=== PATIENT | male | born 1940 | race Caucasian/White ===

== ENCOUNTER → 2018-08-26 | Outpatient (CLI) | payer MEDICARE, BC ==
--- NOTE | 2018-08-27 08:54 | Diagnostic Imaging Report ---
PROCEDURE: CT head without contrast. TECHNIQUE: Multiple contiguous axial images were obtained through the brain without the use of intravenous contrast. Auto Exposure Controls were utilized during the CT exam to meet ALARA standards for radiation dose reduction. INDICATION: Severe dizziness No previous for comparison. FINDINGS: There is a moderate severity of generalized cerebral cortical atrophy. The ventricular caliber is congruent with the degree of sulcation. There is focal encephalomalacia medial, and inferior right occipital lobe consistent with an old ischemic insult and there may be an old small cortical infarct in the left medial occipital lobe as well. No sulcal effacement. No findings of focal or generalized cerebral edema. There is no evidence for elevation of the intracranial pressures. There are intracranial atherosclerotic vascular calcifications. There are no abnormal extra-axial fluid collections. There is no mass or mass effect. Mastoid air cells and middle ear cavities appeared unremarkable. The orbits unremarkable. There is opacification of the left sphenoid sinus. 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 However, no hemorrhage, edema or acute-appearing intracerebral pathology. Dictated by: Dictated on workstation # [id number]
== END ==
LOC: RAD FS 09:55
PROVIDERS: ATTEND Family Medicine
DX: I67.2 Cerebral atherosclerosis (principal); R90.82 White matter disease, unspecified; R54 Age-related physical debility
CPT/HCPCS: 70450

== ENCOUNTER → 2019-03-02 | Outpatient (CLI) | payer MEDICARE, BC ==
--- NOTE | 2019-03-02 11:15 | Diagnostic Imaging Report ---
EXAMINATION: PA and lateral chest at 10:41 a.m. INDICATION: Chest pain. COMPARISON: There are no prior studies available for comparison. FINDINGS: The heart size is within normal limits. There are few coarse interstitial infiltrates in the left midlung and left lung base. These findings could be chronic in nature. If previous exams are available, they would be helpful for comparison. The possibility that these finding are related to mild acute pneumonia/atelectasis cannot be entirely excluded. Clinical follow-up is recommended. The left upper lung and right lung are generally clear. There is no sign of a pleural effusion. The mediastinum is not widened. The osseous structures are intact. IMPRESSION: 1. The coarse interstitial densities in the left midlung and left lung base are of uncertain etiology. Whether these are chronic in nature or related to mild acute pneumonia/atelectasis is unclear. If previous studies are available, they would be helpful for comparison. 2. There is no acute cardiopulmonary abnormality noted, otherwise. Dictated by: Dictated on workstation # [id number]
== END ==
LOC: RAD FS 10:36
PROVIDERS: ATTEND Nurse Practitioner Family
DX: J98.4 Other disorders of lung (principal); R07.89 Other chest pain
CPT/HCPCS: 71046

== ENCOUNTER 2021-03-02 12:35 | Observation (INO) | payer MEDICARE, BC ==
[~2021-03-02] VITALS: Ht 172.7 cm; Wt 78.5 kg
--- NOTE | 2021-03-02 12:42 | ED General ---
General Chief Complaint: Dizziness/Syncope Stated Complaint: DIZZINESS History of Present Illness Date Seen by Provider: Mar 02, 2021 Time Seen by Provider: 12:42 Initial Comments 81-year-old male presents with generalized weakness and what he describes as dizziness. Patient had an episode of dizziness yesterday none today complains of dizziness and just weakness and inability to stand that is new today. Patient has some generalized malaise but denies any cough fever chills nausea vomiting headache or any other systemic complaint. Patient has difficulty describing his dizziness outside of just being weak. Patient reports he is drinking okay he did eat breakfast this morning. He denies any exposure to any known Covid or influenza contacts. 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 Allergies and Home Medications Allergies Coded Allergies: Zxnbeqx-HVQ-WyJ Reductase Inhibitor (Verified Allergy, Unknown, 03/02/21) atorvastatin (Verified Allergy, Unknown, 03/02/21) clopidogrel (Verified Allergy, Unknown, 03/02/21) erythromycin base (Verified Allergy, Unknown, 03/02/21) meclizine (Verified Allergy, Unknown, 03/02/21) Patient Home Medication List Home Medication List Reviewed: Yes Review of Systems Review of Systems Constitutional: chills, dizziness, malaise EENTM: no symptoms reported Respiratory: No cough, No short of breath Cardiovascular: No chest pain, No palpitations Gastrointestinal: No abdominal pain, No nausea, No vomiting Genitourinary: no symptoms reported Musculoskeletal: no symptoms reported Skin: no symptoms reported Psychiatric/Neurological: Weakness Hematologic/Lymphatic: No Symptoms Reported Physical Exam Vital Signs Vital Signs - First Documented 03/02/21 12:40 Temp 38.0 Pulse 88 Resp 28 B/P (MAP) 163/71 (101) Pulse Ox 95 O2 Delivery Room Air Capillary Refill : Height, Weight, BMI Height: '" Weight: lbs. oz. kg; BMI Method: General Appearance: Other (Frail) Neck: Non Tender, Supple Respiratory: Lungs Clear, Normal Breath Sounds Cardiovascular: No Edema, Tachycardia Gastrointestinal: Non Tender, Soft Extremity: Normal Capillary Refill Neurologic/Psychiatric: Alert, Normal Mood/Affect Skin: Normal Color, Warm/Dry Focused Exam Lactate Level 03/02/21 12:57: Lactic Acid Level 1.61 Lactic Acid Level Laboratory Tests Test 03/02/21 12:57 Lactic Acid Level 1.61 MMOL/L (0.50-2.00) Progress/Results/Core Measures Suspected Sepsis SIRS Temperature: Pulse: Respiratory Rate: Laboratory Tests 03/02/21 12:57: White Blood Count 10.8 03/02/21 13:50: White Blood Count 11.5H Blood Pressure / Mean: 03/02/21 12:57: Lactic Acid Level 1.61 Laboratory Tests 03/02/21 12:57: Creatinine 1.18, Platelet Count 226, Total Bilirubin 0.8 03/02/21 13:50: Platelet Count 229 Results/Orders Lab Results Laboratory Tests Test 03/02/21 12:50 03/02/21 12:57 03/02/21 13:14 03/02/21 13:50 Range/Units Urine Color YELLOW Urine Clarity CLEAR Urine pH 8.0 5-9 Urine Specific Joanna 1.020 1.016-1.022 Urine Protein NEGATIVE NEGATIVE Urine Glucose (UA) NEGATIVE NEGATIVE Urine Ketones NEGATIVE NEGATIVE Urine Nitrite NEGATIVE NEGATIVE Urine Bilirubin NEGATIVE NEGATIVE Urine Urobilinogen 0.2 < = 1.0 MG/DL Urine Leukocyte Esterase NEGATIVE NEGATIVE Urine RBC (Auto) NEGATIVE NEGATIVE Urine RBC NONE /HPF Urine WBC RARE /HPF Urine Squamous Epithelial Cells RARE /HPF Urine Crystals NONE /LPF Urine Bacteria NEGATIVE /HPF Urine Casts NONE /LPF Urine Mucus NEGATIVE /LPF Urine Culture Indicated NO White Blood Count 10.8 11.5 H 4.3-11.0 10^3/uL Red Blood Count 4.22 L 4.08 L 4.30-5.52 10^6/uL Hemoglobin 13.9 13.4 13.3-17.7 g/dL Hematocrit 41 40 40-54 % Mean Corpuscular Volume 98 98 80-99 fL Mean Corpuscular Hemoglobin 33 33 25-34 pg Mean Corpuscular Hemoglobin Concent 34 34 32-36 g/dL Red Cell Distribution Width 12.5 12.6 10.0-14.5 % Platelet Count 226 229 130-400 10^3/uL Mean Platelet Volume 10.2 10.0 9.0-12.2 fL Immature Granulocyte % (Auto) 0 0 % Neutrophils (%) (Auto) 84 H 84 H 42-75 % Lymphocytes (%) (Auto) 8 L 8 L 12-44 % Monocytes (%) (Auto) 5 5 0-12 % Eosinophils (%) (Auto) 3 2 0-10 % Basophils (%) (Auto) 1 1 0-10 % Neutrophils # (Auto) 9.0 H 9.6 H 1.8-7.8 X 10^3 Lymphocytes # (Auto) 0.9 L 1.0 1.0-4.0 X 10^3 Monocytes # (Auto) 0.5 0.6 0.0-1.0 X 10^3 Eosinophils # (Auto) 0.3 0.3 0.0-0.3 10^3/uL Basophils # (Auto) 0.1 0.1 0.0-0.1 10^3/uL Immature Granulocyte # (Auto) 0.0 0.0 0.0-0.1 10^3/uL Neutrophils % (Manual) 84 % Lymphocytes % (Manual) 9 % Monocytes % (Manual) 3 % Eosinophils % (Manual) 4 % Toxic Granulation 4+ Sodium Level 137 135-145 MMOL/L Potassium Level 4.4 3.6-5.0 MMOL/L Chloride Level 100 98-107 MMOL/L Carbon Dioxide Level 24 21-32 MMOL/L Anion Gap 13 5-14 MMOL/L Blood Urea Nitrogen 17 7-18 MG/DL Creatinine 1.18 0.60-1.30 MG/DL Estimat Glomerular Filtration Rate 59 BUN/Creatinine Ratio 14 Glucose Level 169 H 70-105 MG/DL Lactic Acid Level 1.61 0.50-2.00 MMOL/L Calcium Level 10.0 8.5-10.1 MG/DL Corrected Calcium 9.7 8.5-10.1 MG/DL Magnesium Level 1.7 1.6-2.4 MG/DL Total Bilirubin 0.8 0.1-1.0 MG/DL Aspartate Amino Transf (AST/SGOT) 32 5-34 U/L Alanine Aminotransferase (ALT/SGPT) 19 0-55 U/L Alkaline Phosphatase 113 40-136 U/L C-Reactive Protein < 0.30 <0.50 MG/DL Total Protein 7.8 6.4-8.2 GM/DL Albumin 4.4 3.2-4.5 GM/DL Influenza Type A Antigen NEGATIVE NEGATIVE Influenza Type B Antigen NEGATIVE NEGATIVE My Orders Orders - CARRANZA,PITO L DO Cbc With Automated Diff (03/02/21 12:47) Comprehensive Metabolic Panel (03/02/21 12:47) Magnesium (03/02/21 12:47) Ua Culture If Indicated (03/02/21 12:47) Accucheck Stat ONCE (03/02/21 12:47) Crp Fs (03/02/21 12:47) Influenza A & B Antigens (03/02/21 12:47) Blood Culture (03/02/21 12:47) Covid 19 Inhouse Test (03/02/21 12:47) Lactic Acid Analyzer (03/02/21 12:47) Ct Head Wo (03/02/21 12:47) Ekg Tracing (03/02/21 12:47) Chest 1 View Ap/Pa Only (03/02/21 12:47) Ed Iv/Invasive Line Start (03/02/21 12:47) Ns Iv 500 Ml (Sodium Chloride 0.9%) (03/02/21 13:00) Procalcitonin (Pct) (03/02/21 12:57) Manual Differential (03/02/21 12:57) Cbc With Automated Diff (03/02/21 13:54) Levofloxacin Tablet (Levaquin Tablet) (03/02/21 14:15) Medications Given in ED Current Medications Medications Dose Ordered Sig/Candelario Route Start Time Stop Time Status Last Admin Dose Admin Levofloxacin 500 mg ONCE ONCE PO 03/02/21 14:15 03/02/21 14:16 DC 03/02/21 14:42 500 MG Sodium Chloride 500 ml @ 0 mls/hr Q0M ONCE IV 03/02/21 13:00 03/02/21 13:01 DC 03/02/21 13:21 0 MLS/HR Vital Signs/I&O 03/02/21 12:40 Temp 38.0 Pulse 88 Resp 28 B/P (MAP) 163/71 (101) Pulse Ox 95 O2 Delivery Room Air Capillary Refill : Progress Note : Progress Note Patient with slightly elevated white count, bilateral perihilar pneumonia on chest x-ray. Patient has some general weakness that is new from yesterday. Based on patient's age and his generalized weakness I will admit for inpatient treatment and physical therapy eval. Patient was given Levaquin p.o. in the ER. This time he does not have any O2 needs. Discussed with Dr. Centeno who accepted patient and will put in admission orders. ECG Initial ECG Impression Date: Mar 02, 2021 Initial ECG Impression Time: 21:50 Initial ECG Rate: 89 Initial ECG Rhythm: Normal Sinus Initial ECG Intervals: Normal Initial ECG Impression: Normal Diagnostic Imaging Diagonstic Imaging: CT Plain Films/CT/US/NM/MRI: head Comments Date of Exam:03/02/21 CT HEAD WO EXAMINATION: CT brain without contrast from 03/02/2021. TECHNIQUE: Multiple contiguous axial images were obtained through the brain without the use of intravenous contrast. Auto Exposure Controls were utilized during the CT exam to meet ALARA standards for radiation dose reduction. INDICATION: Dizziness and weakness. COMPARISON: 08/26/2018. FINDINGS: There is diffuse age-appropriate atrophy. Chronic ischemic disease is seen in a periventricular and deep white matter distribution. No acute hemorrhage or infarct is seen. There is no mass, mass effect, or midline shift. There is no hydrocephalus. The osseous structures are intact. Motion artifact does somewhat limit evaluation of the osseous structures. Mastoid air cells are clear. There is complete opacification of the left sphenoid sinus, stable from previous CT. Remaining sinuses are unremarkable. IMPRESSION: 1. Diffuse chronic changes with no acute intracranial process. Diagonstic Imaging: Xray Plain Films/CT/US/NM/MRI: chest Comments Date of Exam:03/02/21 CHEST 1 VIEW AP/PA ONLY INDICATION: Dizziness and weakness for a week. EXAMINATION: Chest from 03/02/2021. FINDINGS: Two views of the chest. The heart is prominent. There is pulmonary vascular congestion with perihilar infiltrates not excluded. There is no pneumothorax. There are no effusions. IMPRESSION: 1. Pulmonary vascular congestion. 2. Suspected perihilar infiltrates. Departure Communication (Admissions) Time/Spoke to Admitting Phy: 14:21 Okay to admit, Dr. Centeno will put in admission orders Impression Primary Impression: Pneumonia Qualified Codes: J18.9 - Pneumonia, unspecified organism Additional Impression: Muscle weakness (generalized) Disposition: 30 STILL A PATIENT Condition: Stable Admissions Decision to Admit Reason: Admit from ER (General) Decision to Admit/Date: Mar 02, 2021 Time/Decision to Admit Time: 14:21 Departure-Patient Inst. Referrals: BARRY MANSFIELD MD (PCP/Family) Primary Care Physician PITO CARRANZA DO Mar 02, 2021 12:42
[2021-03-02 12:59] LABS: BACTERIA,URINE NEGATIVE /HPF; BILIRUBIN,URINE NEGATIVE (NEGATIVE); CLARITY,URINE CLEAR; COLOR,URINE YELLOW; GLUCOSE, URINE (UA) NEGATIVE (NEGATIVE); KETONES,URINE NEGATIVE (NEGATIVE); LEUKOCYTE ESTERASE ,URINE NEGATIVE (NEGATIVE); NITRITE,URINE NEGATIVE (NEGATIVE); PROTEIN,URINE NEGATIVE (NEGATIVE); SQUAMOUS EPITHELIAL CELL,UR RARE /HPF; WBC,URINE RARE /HPF
[2021-03-02] MEDS ORDERED: NS IV 500 ML 500 ML IV ONE (13:00)
[2021-03-02 13:04] LABS: BASOPHILS # (AUTO) 0.1 10^3/uL (0.0-0.1); BASOPHILS % (AUTO) 1 % (0-10); EOSINOPHILS # (AUTO) 0.3 10^3/uL (0.0-0.3); EOSINOPHILS % (AUTO) 3 % (0-10); HEMATOCRIT 41 % (40-54); HEMOGLOBIN 13.9 g/dL (13.3-17.7); LYMPHOCYTES # (AUTO) 0.9 X 10^3 (1.0-4.0); LYMPHOCYTES % (AUTO) 8 % (12-44); MEAN CORPUSCULAR HEMOGLOBIN 33 pg (25-34); MEAN CORPUSCULAR HGB CONC 34 g/dL (32-36); MEAN CORPUSCULAR VOLUME 98 fL (80-99); MEAN PLATELET VOLUME 10.2 fL (9.0-12.2); MONOCYTES # (AUTO) 0.5 X 10^3 (0.0-1.0); MONOCYTES % (AUTO) 5 % (0-12); NEUTROPHILS % (AUTO) 84 % (42-75); PLATELET COUNT 226 10^3/uL (130-400)
[2021-03-02 13:21] LABS: EOSINOPHILS % (MANUAL) 4 %; LYMPHOCYTES % (MANUAL) 9 %; MONOCYTES % (MANUAL) 3 %; NEUTROPHILS % (MANUAL) 84 %; TOXIC GRANULATION/VACUOLAZATIO 4+
[2021-03-02 13:22] LABS: ALANINE AMINOTRANSFERASE 19 U/L (0-55); ALBUMIN 4.4 GM/DL (3.2-4.5); ALKALINE PHOSPHATASE 113 U/L (40-136); BILIRUBIN,TOTAL 0.8 MG/DL (0.1-1.0); BUN/CREATININE RATIO 14; CARBON DIOXIDE 24 MMOL/L (21-32); CHLORIDE 100 MMOL/L (98-107); CREATININE SERUM 1.18 MG/DL (0.60-1.30); GFR ESTIMATED 59; GLUCOSE 169 MG/DL (70-105); MAGNESIUM 1.7 MG/DL (1.6-2.4); POTASSIUM 4.4 MMOL/L (3.6-5.0); SODIUM 137 MMOL/L (135-145); TOTAL PROTEIN 7.8 GM/DL (6.4-8.2)
[2021-03-02 13:57] LABS: HEMATOCRIT 40 % (40-54); HEMOGLOBIN 13.4 g/dL (13.3-17.7); MEAN CORPUSCULAR HEMOGLOBIN 33 pg (25-34); MEAN CORPUSCULAR HGB CONC 34 g/dL (32-36); MEAN CORPUSCULAR VOLUME 98 fL (80-99); WHITE BLOOD COUNT 11.5 10^3/uL (4.3-11.0)
[2021-03-02 13:58] LABS: BASOPHILS # (AUTO) 0.1 10^3/uL (0.0-0.1); BASOPHILS % (AUTO) 1 % (0-10); EOSINOPHILS # (AUTO) 0.3 10^3/uL (0.0-0.3); EOSINOPHILS % (AUTO) 2 % (0-10); LYMPHOCYTES % (AUTO) 8 % (12-44); MONOCYTES # (AUTO) 0.6 X 10^3 (0.0-1.0); MONOCYTES % (AUTO) 5 % (0-12); NEUTROPHILS # (AUTO) 9.6 X 10^3 (1.8-7.8); NEUTROPHILS % (AUTO) 84 % (42-75); PLATELET COUNT 229 10^3/uL (130-400)
--- NOTE | 2021-03-02 13:58 | Diagnostic Imaging Report ---
EXAMINATION: CT brain without contrast from 03/02/2021. TECHNIQUE: Multiple contiguous axial images were obtained through the brain without the use of intravenous contrast. Auto Exposure Controls were utilized during the CT exam to meet ALARA standards for radiation dose reduction. INDICATION: Dizziness and weakness. COMPARISON: 08/26/2018. FINDINGS: There is diffuse age-appropriate atrophy. Chronic ischemic disease is seen in a periventricular and deep white matter distribution. No acute hemorrhage or infarct is seen. There is no mass, mass effect, or midline shift. There is no hydrocephalus. The osseous structures are intact. Motion artifact does somewhat limit evaluation of the osseous structures. Mastoid air cells are clear. There is complete opacification of the left sphenoid sinus, stable from previous CT. Remaining sinuses are unremarkable. IMPRESSION: 1. Diffuse chronic changes with no acute intracranial process. Dictated by: Dictated on workstation # [id number]
[2021-03-02 13:59] LABS: WHITE BLOOD COUNT 10.8 10^3/uL (4.3-11.0)
--- NOTE | 2021-03-02 13:59 | Diagnostic Imaging Report ---
INDICATION: Dizziness and weakness for a week. EXAMINATION: Chest from 03/02/2021. FINDINGS: Two views of the chest. The heart is prominent. There is pulmonary vascular congestion with perihilar infiltrates not excluded. There is no pneumothorax. There are no effusions. IMPRESSION: 1. Pulmonary vascular congestion. 2. Suspected perihilar infiltrates. Dictated by: Dictated on workstation # [id number]
[2021-03-02 15:35] VITALS: BP 149/79
[2021-03-02] MEDS ORDERED: PATIENT MAY USE OWN MEDS, ALL PO SCH (16:00)
[2021-03-02] MEDS ORDERED: NALOXONE 0.4 MG/ML 1 ML (NARCAN) VIAL IV PRN (16:00)
[2021-03-02] MEDS ORDERED: diphenhydrAMINE 25 MG TAB (BENADRYL) PO PRN (16:00)
[2021-03-02] MEDS ORDERED: morphine INJ 4 MG/ML 1 ML (VIAL/SYRINGE) IV PRN (16:00)
[2021-03-02] MEDS ORDERED: ACETAMINOPHEN 500 MG TAB (TYLENOL) PO PRN (16:00)
[2021-03-02 16:17] VITALS: BP 163/71
[2021-03-02 16:24] VITALS: BP 163/71
[2021-03-02] MEDS ORDERED: RT-ALBUTEROL/IPRATROPIUM 3 ML (DUONEB) VIAL INH PRN (16:30)
[2021-03-02] MEDS ORDERED: ALPRAZolam 0.25 MG (XANAX) TAB PO PRN (17:00)
[2021-03-02] MEDS ORDERED: HYDROcodone/APAP 5 MG/325 MG (LORTAB) TAB PO PRN (17:00)
[2021-03-02] MEDS ORDERED: CALCIUM CARBONATE 500 MG (TUMS) TAB.CHEW PO PRN (17:00)
[2021-03-02] MEDS ORDERED: MELATONIN 3 MG TABLET PO PRN (17:00)
[2021-03-02] MEDS ORDERED: DOCUSATE SODIUM 100 MG (COLACE) CAP PO PRN (17:00)
[2021-03-02] MEDS ORDERED: EZET10TA49 PO (17:00)
[2021-03-02] MEDS ORDERED: Prevagen PO (17:13)
[2021-03-02] MEDS ORDERED: GLUC100016 PO (17:13)
[2021-03-02] MEDS ORDERED: GEMF600T88 PO (17:13)
[2021-03-02] MEDS ORDERED: METF-397 PO (17:13)
[2021-03-02] MEDS ORDERED: TMSL.4C PO (17:13)
[2021-03-02] MEDS ORDERED: BETA1TAB15 PO (17:13)
[2021-03-02] MEDS: NS IV 1000 ML 1,000 ML IV SCH (17:25)
[2021-03-02] MEDS: ENOXAPARIN 40 MG/0.4 ML (LOVENOX) SYR SC SCH (17:25)
[2021-03-02] MEDS: TAMSULOSIN 0.4 MG (FLOMAX) CAP PO SCH (18:52)
[2021-03-02 19:45] VITALS: BP 131/69
[2021-03-02] MEDS: inSUlin ASPART (NovoLOG) 1 UNIT/0.01 ML (CHARGE PER UNIT) SC SCH (20:45)
[2021-03-02] MEDS: RT-ALBUTEROL/IPRATROPIUM 3 ML (DUONEB) VIAL INH SCH (21:12)
[2021-03-02] MEDS: SENNA W/DOCUSATE (SENOKOT S) TABLET PO SCH (21:47)
[2021-03-02 23:30] VITALS: BP 119/56
[2021-03-03] MEDS: RT-ALBUTEROL/IPRATROPIUM 3 ML (DUONEB) VIAL INH SCH ×4 (02:46→21:31)
[2021-03-03 04:00] VITALS: BP 120/62
[2021-03-03 05:46] LABS: BASOPHILS % (AUTO) 0 % (0-10); EOSINOPHILS # (AUTO) 0.1 10^3/uL (0.0-0.3); EOSINOPHILS % (AUTO) 2 % (0-10); HEMATOCRIT 36 % (40-54); LYMPHOCYTES # (AUTO) 1.1 10^3/uL (1.0-4.0); LYMPHOCYTES % (AUTO) 20 % (12-44); MEAN CORPUSCULAR HEMOGLOBIN 33 pg (25-34); MEAN CORPUSCULAR HGB CONC 34 g/dL (32-36); MEAN CORPUSCULAR VOLUME 98 fL (80-99); MEAN PLATELET VOLUME 10.2 fL (9.0-12.2); MONOCYTES # (AUTO) 0.5 10^3/uL (0.0-1.0); MONOCYTES % (AUTO) 9 % (0-12); NEUTROPHILS # (AUTO) 3.8 10^3/uL (1.8-7.8); NEUTROPHILS % (AUTO) 69 % (42-75); PLATELET COUNT 162 10^3/uL (130-400); WHITE BLOOD COUNT 5.5 10^3/uL (4.3-11.0)
[2021-03-03 06:09] LABS: ALBUMIN 3.5 GM/DL (3.2-4.5)
[2021-03-03 06:11] LABS: CALCIUM 8.9 MG/DL (8.5-10.1)
[2021-03-03 06:12] LABS: TOTAL PROTEIN 6.3 GM/DL (6.4-8.2)
[2021-03-03 06:14] LABS: BILIRUBIN,TOTAL 1.1 MG/DL (0.1-1.0)
[2021-03-03 06:15] LABS: CREATININE SERUM 1.14 MG/DL (0.60-1.30)
[2021-03-03 08:00] VITALS: BP 126/58
[2021-03-03] MEDS: NS IV 1000 ML 1,000 ML IV SCH (08:47)
[2021-03-03] MEDS: SENNA W/DOCUSATE (SENOKOT S) TABLET PO SCH ×2 (08:47→20:37)
[2021-03-03] MEDS: inSUlin ASPART (NovoLOG) 1 UNIT/0.01 ML (CHARGE PER UNIT) SC SCH ×2 (08:59→20:34)
[2021-03-03 12:00] VITALS: BP 126/58
--- NOTE | 2021-03-03 12:26 | History & Physical-Hospitalist ---
History of Present Illness HPI/Chief Complaint Chief complaint: Pneumonia with weakness History present illness: This is an 81-year-old white male who lives at home w ith his son who presented to the [place] ER with severe weakness. Patient was found to have pneumonia and dehydration. He was placed on Levaquin and that was continued and currently he is eating and drinking so we will Hep-Lock IV fluid. Son is at the bedside. PT and OT will be initiated to be sure he is safe to go home. Source: patient Exam Limitations: no limitations Date Seen 03/03/21 Time Seen by a Provider: 12:00 Attending Physician Linda Centeno Pankaj K MD Referring Physician Date of Admission Mar 02, 2021 at 15:38 Home Medications & Allergies Home Medications Reviewed patient Home Medication Reconciliation performed by pharmacy medication reconciliations desktop support technician and/or nursing. Patients Allergies have been reviewed. Allergies Allergies Coded Allergies Rmatbeh-VVB-GpK Reductase Inhibitor (Verified Allergy, Unknown, 03/02/21) atorvastatin (Verified Allergy, Unknown, 03/02/21) clopidogrel (Verified Allergy, Unknown, 03/02/21) erythromycin base (Verified Allergy, Unknown, 03/02/21) meclizine (Verified Allergy, Unknown, 03/02/21) Past Gxhiahl-Bbcass-Qhwugs Hx Patient Social History Marrital Status: single Employed/Student: retired Tobacco Use?: No Smoking Status: Former Smoker Use of E-Cig and/or Vaping dev: No Substance use?: No Alcohol Use?: No Pt feels they are or have been: No Immunizations Up To Date Date of Influenza Vaccine: Jan 18, 2021 First/Initial COVID19 Vaccinat: May 2020 Second COVID19 Vaccination Sabino: June 2020 Current Status Advance Directives: No Communicates: Verbally Primary Language: Surinamese Preferred Spoken Language: Surinamese Is interpretation needed?: No Sensory deficits: Vision impairment, Hearing impairment Implanted or Applied Medical D: None Past Medical History High Cholesterol, Hypertension Dementia Review of Systems Constitutional: see HPI, malaise, weakness EENTM: no symptoms reported Respiratory: cough Cardiovascular: no symptoms reported Gastrointestinal: no symptoms reported Genitourinary: no symptoms reported Musculoskeletal: no symptoms reported Skin: no symptoms reported Psychiatric/Neurological: No Symptoms Reported All Other Systems Reviewed Negative Unless Noted: Yes Physical Exam Physical Exam Vital Signs Vital Signs - First Documented 03/02/21 03/02/21 12:40 16:24 Temp 38.0 Pulse 88 Resp 28 B/P (MAP) 163/71 (101) Pulse Ox 95 O2 Delivery Room Air FiO2 21 Capillary Refill : Less Than 3 Seconds Height, Weight, BMI Height: '" Weight: lbs. oz. kg; 26.21 BMI Method: General Appearance: No Apparent Distress, Chronically ill Eyes: Right Eye Normal Inspection, Right Eye PERRL HEENT: PERRL/EOMI, Normal ENT Inspection, Pharynx Normal, Moist Mucous Membranes Neck: Full Range of Motion, Normal Inspection, Non Tender Respiratory: Chest Non Tender, Lungs Clear, Normal Breath Sounds, No Accessory Muscle Use, No Respiratory Distress Cardiovascular: Regular Rate, Rhythm, No Edema, No Gallop, No JVD, No Murmur, Normal Peripheral Pulses Gastrointestinal: Normal Bowel Sounds, No Organomegaly, No Pulsatile Mass, Non Tender, Soft Back: Normal Inspection, No CVA Tenderness, No Vertebral Tenderness Extremity: Normal Capillary Refill, Normal Inspection, Normal Range of Motion, Non Tender, No Calf Tenderness, No Pedal Edema Neurologic/Psychiatric: Alert, Oriented x3, No Motor/Sensory Deficits, Normal Mood/Affect Skin: Normal Color, Warm/Dry Lymphatic: No Adenopathy Results Results/Procedures Labs Laboratory Tests 03/02/21 12:57 03/02/21 13:50 03/03/21 05:19 Patient resulted labs reviewed. Assessment/Plan Admission Diagnosis Assessment: Pneumonia Dehydration Severe weakness Advanced age Plan: Supportive care PT and OT Hep-Lock IV fluid Admission Status: Observation Diagnosis/Problems Diagnosis/Problems (1) Pneumonia Status: Acute Qualifiers: Pneumonia type: due to unspecified organism Laterality: bilateral Lung location: unspecified part of lung Qualified Codes: J18.9 - Pneumonia, unspecified organism (2) Muscle weakness (generalized) Status: Acute LINDA CENTENO DO Mar 03, 2021 12:26
[2021-03-03 16:33] VITALS: BP 125/63
[2021-03-03] MEDS: TAMSULOSIN 0.4 MG (FLOMAX) CAP PO SCH (18:36)
[2021-03-03] MEDS: ENOXAPARIN 40 MG/0.4 ML (LOVENOX) SYR SC SCH (18:36)
[2021-03-03 20:00] VITALS: BP 136/63
[2021-03-04 00:36] VITALS: BP 131/70
[2021-03-04] MEDS: RT-ALBUTEROL/IPRATROPIUM 3 ML (DUONEB) VIAL INH SCH ×2 (03:04→09:53)
[2021-03-04 04:59] VITALS: BP 116/56
[2021-03-04 05:40] LABS: BASOPHILS % (AUTO) 1 % (0-10); EOSINOPHILS # (AUTO) 0.2 10^3/uL (0.0-0.3); EOSINOPHILS % (AUTO) 4 % (0-10); HEMATOCRIT 36 % (40-54); HEMOGLOBIN 12.2 g/dL (13.3-17.7); LYMPHOCYTES # (AUTO) 1.3 10^3/uL (1.0-4.0); LYMPHOCYTES % (AUTO) 29 % (12-44); MEAN CORPUSCULAR HEMOGLOBIN 33 pg (25-34); MEAN CORPUSCULAR HGB CONC 34 g/dL (32-36); MEAN CORPUSCULAR VOLUME 97 fL (80-99); MEAN PLATELET VOLUME 9.7 fL (9.0-12.2); MONOCYTES # (AUTO) 0.8 10^3/uL (0.0-1.0); MONOCYTES % (AUTO) 17 % (0-12); NEUTROPHILS # (AUTO) 2.2 10^3/uL (1.8-7.8); NEUTROPHILS % (AUTO) 49 % (42-75); PLATELET COUNT 162 10^3/uL (130-400); WHITE BLOOD COUNT 4.5 10^3/uL (4.3-11.0)
[2021-03-04 05:54] LABS: ALBUMIN 3.6 GM/DL (3.2-4.5); POTASSIUM 3.9 MMOL/L (3.6-5.0)
[2021-03-04 05:55] LABS: CALCIUM 8.8 MG/DL (8.5-10.1)
[2021-03-04 05:57] LABS: TOTAL PROTEIN 6.4 GM/DL (6.4-8.2)
[2021-03-04 05:59] LABS: BILIRUBIN,TOTAL 0.7 MG/DL (0.1-1.0)
[2021-03-04 06:00] LABS: CREATININE SERUM 1.22 MG/DL (0.60-1.30)
[2021-03-04] MEDS: NS IV 1000 ML 1,000 ML IV SCH (07:01)
[2021-03-04 08:00] VITALS: BP 118/61
--- NOTE | 2021-03-04 08:47 | Physical Therapy Evaluation ---
PT Evaluation-General Medical Diagnosis Admission Date Mar 02, 2021 at 15:38 Medical Diagnosis: weakness Onset Date: Mar 02, 2021 Therapy Diagnosis Therapy Diagnosis: impaired mobility, strength, endurance Precautions Precautions/Isolations: Fall Prevention, Standard Precautions Weight Bear Status Right Lower Extremity: Right Weight Bearing/Tolerated Left Lower Extremity: Left Weight Bearing/Tolerated Referral Physician: Linda Centeno DO Reason for Referral: Evaluation/Treatment Medical History Pertinent Medical History: HTN Additional Medical History hyperlipidemia, dementia Reviewed History: Yes Social History Current Living Status: Children Entry Into Home: Stairs With Railing PT Steps Into Home: 3 patient lives with his son Prior Prior Level of Function SCALE: Activities may be completed with or without assistive devices. 1-Txypuecskf-suwfnyq completes the activity by him/herself with no assistance from a helper. 5-Set-up or Clean-up Assistance-helper sets up or cleans up; patient completes activity. [place] assists only prior to or following the activity. 4-Supervision or Touching Assistance-helper provides verbal cues and/or touching/steadying and/or contact guard assistance as patient completes activity. Assistance may be provided throughout the activity or intermittently. 3-Partial/Moderate Assistance-helper does LESS THAN HALF the effort. [place] lifts, holds or supports trunk or limbs, but provides less than half the effort. 2-Substantial/Maximal Assistance-helper does MORE THAN HALF the effort. [place] lifts or holds trunk or limbs and provides more than half the effort. 1-Loywwgmic-geqpyt does ALL the effort. Patient does none of the effort to complete the activity. Or, the assistance of 2 or more helpers is required for the patient to complete the activity. If activity was not attempted, code reason: 7-Patient Refused. 9-Not Applicable-not attempted and the patient did not perform the activity before the current illness, exacerbation or injury. 10-Not Attempted due to Environmental Limitations-(lack of equipment, weather restraints, etc.). 88-Not Attempted due to Medical Conditions or Safety Concerns. Bed Mobility: 3 Transfers (B,C,W/C): 3 Gait: 3 PT Evaluation-Current Subjective Patient in bed pre tx, agrees to PT, has no complaints of pain. Pt/Family Goals to be independent at home Objective Patient Orientation: Person, Confused ROM/Strength ROM Lower Extremities WNL Strength Lower Extremities LLE (hip flexion 3+/5, knee flexion 4/5, knee extension 4/5, dorsiflexion 4/5), RLE (hip flexion 3+/5, knee flexion 4/5, knee extension 4/5, dorsiflexion 4/5) Sensory Vision: Hearing: Functional Sensation Right Lower Extremit: Intact Sensation Left Lower Extremity: Intact Transfers Roll Left to Right (QC): 3 Sit to Lying (QC): 4 Lying to Sitting/Side of Bed(Q: 3 Sit to Stand (QC): 4 Chair/Nvs-ah-Yxiqb Xfer(QC): 4 Gait Does the Patient Walk?: Yes Mode of Locomotion: Walk Anticipated Mode of Locomotion: Walk Walk 10 feet (QC): 4 Walk 50 ft with 2 Turns(QC): 4 Distance: 100' Gait Assistive Device: FWW Comments/Gait Description slow but steady ambulation, slumped posture, cues for direction Balance Sitting Static: Normal Sitting Dynamic: Normal Standing Static: Fair Standing Dynamic: Fair Treatment supine BLE exercises x20 (AP, HS) Assessment/Needs Patient in bed post tx with nurse call, phone, tray, all needs met. Patient has impaired mobility, strength, endurance. Needs min assist for supine to sit but CGA for transfers and ambulation. Rehab Potential: Fair PT Mobile Mechanic Goals Prison Goals PT Mobile Mechanic Goals Time Frame: Mar 11, 2021 Roll Left & Right (QC): 6 Sit to Lying (QC): 6 Lying-Sitting on Side/Bed(QC): 6 Sit to Stand (QC): 4 Chair/Yzj-ra-Wubkz Xfer(QC): 4 Walk 10 feet (QC): 4 Walk 50ft with 2 Turns (QC): 4 Walk 150 ft (QC): 4 1 Step (curb) (QC): 3 4 Steps (QC): 3 PT Plan Problem List Problem List: Activity Tolerance, Functional Strength, Safety, Balance, Gait, Transfer, Bed Mobility, ROM Treatment/Plan Treatment Plan: Continue Plan of Care Treatment Plan: Bed Mobility, Education, Functional Activity Taryn, Functional Strength, Gait, Safety, Therapeutic Exercise, Transfers Treatment Duration: Mar 11, 2021 Frequency: 6 times per week Estimated Hrs Per Day: .25 hour per day Patient and/or Family Agrees t: Yes Safety Risks/Education Patient Education: Gait Training, Transfer Techniques, Correct Positioning, Safety Issues Teaching Recipient: Patient Teaching Methods: Demonstration, Discussion Response to Teaching: Reinforcement Needed Discharge Recommendations Plan Patient will perform bed mobility and transfer training, balance and endurance training, functional strengthening, stair training, gait training, and education, to improve functional mobility and independence at home. Therapy Discharge Recommendati: Scheduled Assistance, Home & Family, Post Acute PT Time/GCodes Time In: 809 Time Out: 822 Total Billed Treatment Time: 13 Total Billed Treatment 1 visit JORGE CEDILLO PT Mar 04, 2021 08:47
[2021-03-04] MEDS ORDERED: METF-397 PO (08:49)
[2021-03-04] MEDS ORDERED: MV-M1TAB38 PO (08:51)
[2021-03-04] MEDS: SENNA W/DOCUSATE (SENOKOT S) TABLET PO SCH (08:54)
[2021-03-04] MEDS: inSUlin ASPART (NovoLOG) 1 UNIT/0.01 ML (CHARGE PER UNIT) SC SCH (10:00)
--- NOTE | 2021-03-04 10:01 | Occupational Therapy Eval ---
OT Evaluation-General/PLF Medical Diagnosis Admission Date Mar 02, 2021 at 15:38 Medical Diagnosis: weakness Onset Date: Mar 02, 2021 Therapy Diagnosis Therapy Diagnosis: impaired strength, balance, vision Precautions Precautions/Isolations: Fall Prevention, Standard Precautions Safety Interventions: Bed Exit Alarm Referral Physician: Linda Centeno DO Referral Reason: Evaluation/Treatment Medical History Pertinent Medical History: HTN Current History Presents to [facility] ER with severe weakness. Found to have pneumonia and dehydration. History of macular degeneration; Son reports only peripheral vision intact. Pt lives with son in multilevel home. All needs met on main level. He was indep with adls except needs assist with donning/doffing socks. He no longer drives. He owns a walker but was not using [employer]. Son completes all IADLs. Reviewed History: Yes Social History Home: Multilevel Current Living Status: Children Entry Into Home: Stairs With Railing Steps Into Home: 3 ADL-Prior Level of Function SCALE: Activities may be completed with or without assistive devices. 5-Xyrtvquftv-dnmzpma completes the activity by him/herself with no assistance from a helper. 5-Set-up or Clean-up Assistance-helper sets up or cleans up; patient completes activity. [place] assists only prior to or following the activity. 4-Supervision or Touching Assistance-helper provides verbal cues and/or touching/steadying and/or contact guard assistance as patient completes acti vity. Assistance may be provided throughout the activity or intermittently. 3-Partial/Moderate Assistance-helper does LESS THAN HALF the effort. [place] lifts, holds or supports trunk or limbs, but provides less than half the effort. 2-Substantial/Maximal Assistance-helper does MORE THAN HALF the effort. [place] lifts or holds trunk or limbs and provides more than half the effort. 6-Wfmdgzboz-sivfew does ALL the effort. Patient does none of the effort to complete the activity. Or, the assistance of 2 or more helpers is required for the patient to complete the activity. If activity was not attempted, code reason: 7-Patient Refused. 9-Not Applicable-not attempted and the patient did not perform the activity before the current illness, exacerbation or injury. 10-Not Attempted due to Environmental Limitations-(lack of equipment, weather restraints, etc.). 88-Not Attempted due to Medical Conditions or Safety Concerns. Self Care: Needed Some Help Functional Cognition: Needed Some Help DME/Equipment: Bath Chair, Grab Bars, Tub/Shower Drive Self: No OT Current Status Subjective Denies pain, agreeable to treatment. Appearance Left sitting in chair, alarm set. Son in room at OT departure. Mental Status/Objective Patient Orientation: Person, Confused Current Glasses/Contacts: Yes Hearing Aids: No Dentures/Partials: No Hand Dominance: Right Upper Extremity ROM Right shoulder: ~3/4 AROM baseline. All other joints WNL Upper Extremity Strength 3+/5 grossly ADL-Treatment On/Off Footwear (QC): 1 Toileting Hygiene (QC): 3 Pt resting in bed at OT arrival, agreeable to eval. Able to sit EOB with CGA. Sit<>stand: CGA. He ambulated to/from bathroom with mod verbal cues for walker management secondary to vision loss. Pt stood at toilet to void, Min cues to step closer to toilet. Min a from son to manage straps on diaper in standing, no unsteadiness in standing. Son reports pt normally doesn't have difficulty managing clothing but he is not used to wearing a diaper and is unable to see where the straps are. Max cues to keep walker in front of patient, especially when turning to sit. Anticipate pt will do better in familiar environment secondary to low vision. Education OT Patient Education: Correct positioning, Instructions to caregiver, Purpose of tx/functional activities, Safety issues Teaching Recipient: Patient, Family Teaching Methods: Discussion Response to Teaching: Verbalize Understanding OT Detention Goals Disability Attorney Goals Time Frame: Mar 13, 2021 Eating (QC): 5 Oral Hygiene (QC): 4 Toileting Hygiene (QC): 4 Lower Body Dressing (QC): 4 1=Demonstrate adherence to instructed precautions during ADL tasks. 2=Patient will verbalize/demonstrate understanding of assistive devices/m odifications for ADL. 3=Patient will improve strength/tolerance for activity to enable patient to perform ADL's. OT Education/Plan Problem List/Assessment Assessment: Decreased Activ Tolerance, Decreased Safety Aware, Decreased UE Strength, Impaired Cognition, Impaired Self-Care Skills Discharge Recommendations Plan/Recommendations: Continue POC Comment Home with continued family support Home health Treatment Plan/Plan of Care Treatment,Training & Education: Yes Patient would benefit from OT for education, treatment and training to promote independence in ADL's, mobility, safety and/or upper extremity function for ADL's. Plan of Care: ADL Retraining, Caregiver Training, Functional Mobility, UE Funct Exercise/Act Comment Family requesting home exercise program for next session Treatment Duration: Mar 13, 2021 Frequency: 5 times per week Estimated Hrs Per Day: .25 hour per day Agreement: Yes Rehab Potential: Fair Time/GCodes Start Time: 09:16 Stop Time: 09:32 Total Time Billed (hr/min): 16 Billed Treatment Time 1 visit Marichuy Sharma OT Mar 04, 2021 10:01
[2021-03-04] MEDS ORDERED: LEVO750T39 PO (10:27)
--- NOTE | 2021-03-04 10:28 | Discharge Summary ---
Discharge Summary Hospital Course Was the Problem List Reviewed?: Yes Problems/Dx: (1) Pneumonia Status: Acute Qualifiers: Qualified Codes: J18.9 - Pneumonia, unspecified organism (2) Muscle weakness (generalized) Status: Acute Hospital Course Date of Admission: Mar 02, 2021 at 15:38 Admission Diagnosis : Family Physician/Provider: Zurdo Nair MD Date of Discharge: 03/04/21 Discharge Diagnosis: Pneumonia, severe weakness, advanced age, dementia, presbycusis Hospital Course: Hospital Course: Pt had a brief hospital course after he was admitted for weakness and pneumonia. Pt was placed on Levaquin in the ER so that was continued. PT and OT saw him, gave him some home exercises and did not require home health. Otherwise pt is doing well and going home today in stable condition. Labs and Pending Lab Test: Laboratory Tests 03/03/21 15:53: Glucometer 112H 03/03/21 20:20: Glucometer 121H 03/04/21 05:30: White Blood Count 4.5, Red Blood Count 3.70L, Hemoglobin 12.2L, Hematocrit 36L, Mean Corpuscular Volume 97, Mean Corpuscular Hemoglobin 33, Mean Corpuscular Hemoglobin Concent 34, Red Cell Distribution Width 12.2, Platelet Count 162, Mean Platelet Volume 9.7, Immature Granulocyte % (Auto) 1, Neutrophils (%) (Auto) 49, Lymphocytes (%) (Auto) 29, Monocytes (%) (Auto) 17H, Eosinophils (%) (Auto) 4, Basophils (%) (Auto) 1, Neutrophils # (Auto) 2.2, Lymphocytes # (Auto) 1.3, Monocytes # (Auto) 0.8, Eosinophils # (Auto) 0.2, Basophils # (Auto) 0.0, Immature Granulocyte # (Auto) 0.0, Sodium Level 137, Potassium Level 3.9, Chloride Level 107, Carbon Dioxide Level 19L, Anion Gap 11, Blood Urea Nitrogen 18, Creatinine 1.22, Estimat Glomerular Filtration Rate 57, BUN/Creatinine Ratio 15, Glucose Level 124H, Calcium Level 8.8, Corrected Calcium 9.1, Total Bilirubin 0.7, Aspartate Amino Transf (AST/SGOT) 41H, Alanine Aminotransferase (ALT/SGPT) 21, Alkaline Phosphatase 75, Total Protein 6.4, Albumin 3.6 03/04/21 08:46: Glucometer 183H Microbiology 03/02/21 Blood Culture - Preliminary, Resulted No growth Home Meds Active Reported Ocuvite Eye + Multi Tablet (Mv-Mn/FA/Vit K/Lycop/Lut/Zeaxa) 1 Each Tablet 1 Each PO DAILY Metformin HCl 500 Mg Tablet 500 Mg PO HS Flomax (Tamsulosin HCl) 0.4 Mg Cap 0.4 Mg PO HS [Prevagen] 10 Mg PO DAILY Preservision Areds Tablet (Vit A/Vit C/Vit E/Zinc/Copper) 1 Each Tablet 1 Each PO DAILY Metformin HCl 500 Mg Tablet 1,000 Mg PO DAILY TAKES 2 500MG TABLETS Glucosamine (Glucosamine Sulfate 2Kcl) 1,000 Mg Tablet 1,000 Mg PO DAILY Gemfibrozil 600 Mg Tablet 600 Mg PO BID Ezetimibe 10 Mg Tablet 10 Mg PO ONCE Assessment/Pt Instructions PCP in 1 week Discharge Planning: <30 minutes discharge planning Discharge Instructions Discharge Diet: No Restrictions Discharge Physical Examination Vital Signs Vital Signs Date Time Temp Pulse Resp B/P (MAP) Pulse Ox O2 Delivery O2 Flow Rate FiO2 03/04/21 09:53 96 Room Air 03/04/21 08:00 36.2 60 18 118/61 (80) 03/02/21 16:24 21 General Appearance: No Apparent Distress, WD/WN, Chronically ill Respiratory: Lungs Clear, Normal Breath Sounds Cardiovascular: Regular Rate, Rhythm Neurologic/Psychiatric: Alert, Oriented x3 Allergies: Coded Allergies: Ejlnscb-OLY-MnI Reductase Inhibitor (Verified Allergy, Unknown, 03/02/21) atorvastatin (Verified Allergy, Unknown, 03/02/21) clopidogrel (Verified Allergy, Unknown, 03/02/21) erythromycin base (Verified Allergy, Unknown, 03/02/21) meclizine (Verified Allergy, Unknown, 03/02/21) Discharge Summary Date of Admission Mar 02, 2021 at 15:38 Date of Discharge Discharge Date: Mar 04, 2021 Admission Diagnosis Assessment: Pneumonia Dehydration Severe weakness Advanced age Plan: Supportive care PT and OT Hep-Lock IV fluid Discharge Diagnosis (1) Pneumonia Status: Acute Qualifiers: Qualified Codes: J18.9 - Pneumonia, unspecified organism (2) Muscle weakness (generalized) Status: Acute JULIAN ANDERSON DO Mar 04, 2021 10:28
[2021-03-04 10:45] VITALS: BP 125/68
[2021-03-04 11:05] VITALS: BP 125/68
--- NOTE | 2021-03-04 12:57 | Progress Note ---
MARIE ZUNIGA MED STUDENT 03/04/21 1257: Progress Note Mr. Baltazar was admitted on 03/02. He presented to ER with generalized weakness that he describes as dizziness. He also had a new inability to stand. He denies cough, fever, chills headache. He was found to have PNA and dehydration and was admitted and started on levaquin as well as IV fluids. He received PT and OT eval to ensure that he was safe to be discharged. His son is able to take care of him at home. He will be discharged with oral abx. He had an uneventful hospital stay that lasted 2 days in duration. He felt very much improved on the morning of his discharge. Supervisory-Addendum Brief Verification & Attestation Participated in pt care: history, physical Personally performed: exam, history Care discussed with: Medical Student Procedures: n/a n/a LINDA ANDERSON DO 03/05/21 0606: Supervisory-Addendum Brief Verification & Attestation Participated in pt care: history, MDM, physical Personally performed: exam, history, MDM, supervision of care Care discussed with: Medical Student Procedures: n/a Results interpretation: Verified all documentation Verification and Attestation of Medical Student E/M Service A medical student performed and documented this service in my presence. I reviewed and verified all information documented by the medical student and made modifications to such information, when appropriate. I personally performed the physical exam and medical decision making. Linda Anderson, Mar 05, 2021,06:06 MARIE ZUNIGA MED STUDENT Mar 04, 2021 12:57 LINDA ANDERSON DO Mar 05, 2021 06:06
== END 2021-03-04 13:00 | disposition home or self-care (01) ==
LOC: EDUNIT# 12:35 → ER FS 12:37 → 4TH 15:38
PROVIDERS: ADMIT Internal Medicine; ATTEND Internal Medicine
DX: J18.9 Pneumonia, unspecified organism (principal); M62.81 Muscle weakness (generalized); F03.90 Unspecified dementia, unspecified severity, without behavioral disturbance, psychotic disturbance, mood disturbance, and anxiety; H91.10 Presbycusis, unspecified ear; E78.00 Pure hypercholesterolemia, unspecified; I10 Essential (primary) hypertension; E86.0 Dehydration; Z79.899 Other long term (current) drug therapy; Z87.891 Personal history of nicotine dependence
CPT/HCPCS: 36415; 70450; 71045; 80053; 81000; 82947; 83605; 83735; 84145; 85007; 85025; 85027; 86141; 87040; 87636; 87804; 94640; 94664; 94760; G0378

== ENCOUNTER 2021-08-31 16:55 | Inpatient (IN) | payer MEDICARE, BC ==
[~2021-08-31] VITALS: Ht 165.1 cm; Wt 96.9 kg
[~2021-08-31 16:55] MED LIST: BETA1TAB15 PO; EZET10TA49 PO; GEMF600T88 PO; GLUC100016 PO; LEVO750T39 PO; METF-397 PO; MV-M1TAB38 PO; Prevagen PO; TMSL.4C PO
[2021-08-31 17:13] LABS: BASOPHILS # (AUTO) 0.1 10^3/uL (0.0-0.1); BASOPHILS % (AUTO) 1 % (0-10); EOSINOPHILS # (AUTO) 0.3 10^3/uL (0.0-0.3); EOSINOPHILS % (AUTO) 5 % (0-10); HEMATOCRIT 39 % (40-54); HEMOGLOBIN 13.1 g/dL (13.3-17.7); LYMPHOCYTES # (AUTO) 1.5 10^3/uL (1.0-4.0); LYMPHOCYTES % (AUTO) 22 % (12-44); MEAN CORPUSCULAR HEMOGLOBIN 32 pg (25-34); MEAN CORPUSCULAR HGB CONC 34 g/dL (32-36); MEAN CORPUSCULAR VOLUME 94 fL (80-99); MEAN PLATELET VOLUME 9.7 fL (9.0-12.2); MONOCYTES # (AUTO) 0.7 10^3/uL (0.0-1.0); MONOCYTES % (AUTO) 10 % (0-12); NEUTROPHILS # (AUTO) 4.2 10^3/uL (1.8-7.8); NEUTROPHILS % (AUTO) 62 % (42-75); PLATELET COUNT 213 10^3/uL (130-400); WHITE BLOOD COUNT 6.8 10^3/uL (4.3-11.0)
[2021-08-31 17:22] LABS: PROTHROMBIN TIME PATIENT 13.4 SEC (12.2-14.7)
[2021-08-31 17:35] LABS: ALANINE AMINOTRANSFERASE 8 U/L (0-55); ALBUMIN 4.1 GM/DL (3.2-4.5); ALKALINE PHOSPHATASE 87 U/L (40-136); BILIRUBIN,TOTAL 0.6 MG/DL (0.1-1.0); BUN/CREATININE RATIO 13; CALCIUM 9.2 MG/DL (8.5-10.1); CARBON DIOXIDE 22 MMOL/L (21-32); CHLORIDE 103 MMOL/L (98-107); CREATININE SERUM 1.04 MG/DL (0.60-1.30); GFR ESTIMATED 71; GLUCOSE 185 MG/DL (70-105); POTASSIUM 3.9 MMOL/L (3.6-5.0); SODIUM 139 MMOL/L (135-145); TOTAL PROTEIN 7.2 GM/DL (6.4-8.2)
--- NOTE | 2021-08-31 17:35 | Diagnostic Imaging Report ---
CHEST 1 VIEW AP/PA ONLY Indication: Shortness of air Comparison: 03/02/2021 Findings: No focal airspace disease in the visualized lungs. Please note that the posterior lower lobes are poorly evaluated by portable radiography. No pleural effusion or pneumothorax. Normal cardiomediastinal silhouette. Impression: 1. No acute cardiopulmonary process by portable radiography. Dictated by: Dictated on workstation # [id number]
[2021-08-31] MEDS ORDERED: NS IV 1000 ML 1,000 ML IV SCH (18:00)
--- NOTE | 2021-08-31 18:04 | ED Respiratory ---
General Chief Complaint: Respiratory Problems Stated Complaint: GEN WEAKNESS; COUGH Nursing Triage Note: Patient presents to the ED with c/o cough and generalized weakness. His son reports the cough started yesterday evening. He states, "He started getting really weak this afternoon." Source: patient Exam Limitations: no limitations History of Present Illness Date Seen by Provider: August 31, 2021 Time Seen by Provider: 17:00 Initial Comments Patient is an 81-year-old male who presents with generalized weakness and increased somnolence. Symptoms began yesterday and have gradually increased with patient being unable to get out of bed or stand up from his chair this afternoon. No fever cough, chills, sweats, shortness of breath, nausea or vomiting, abdominal pain, urinary frequency urgency dysuria. No rash. No other acute symptoms or complaints. Historian is achieved by the patient's family members. Prior Episodes/Possible Cause: other Modifying Factors: Improves With Other Associated Symptoms: other Allergies and Home Medications Allergies Coded Allergies: Fiamxyr-IQL-JrS Reductase Inhibitor (Verified Allergy, Unknown, 03/02/21) atorvastatin (Verified Allergy, Unknown, 03/02/21) clopidogrel (Verified Allergy, Unknown, 03/02/21) erythromycin base (Verified Allergy, Unknown, 03/02/21) meclizine (Verified Allergy, Unknown, 03/02/21) Patient Home Medication List Home Medication List Reviewed: Yes Ezetimibe (Ezetimibe) 10 Mg Tablet, 10 MG PO ONCE, (Reported) Entered as Reported by: RAZIA MCINTOSH on 03/02/21 1700 Gemfibrozil (Gemfibrozil) 600 Mg Tablet, 600 MG PO BID, (Reported) Entered as Reported by: RAZIA MCINTOSH on 03/02/21 171 Glucosamine Sulfate 2Kcl (Glucosamine) 1,000 Mg Tablet, 1,000 MG PO DAILY, (Reported) Entered as Reported by: RAZIA MCINTOSH on 03/02/21 171 Levofloxacin (Levofloxacin) 750 Mg Tablet, 750 MG PO DAILY@11 Prescribed by: JULIAN ANDERSON on 03/04/21 1027 Metformin HCl (Metformin HCl) 500 Mg Tablet, 1,000 MG PO DAILY, (Reported) Entered as Reported by: RAZIA MCINTOSH on 03/02/21 171 Metformin HCl (Metformin HCl) 500 Mg Tablet, 500 MG PO HS, (Reported) Entered as Reported by: RADHA SHAH on 03/04/21 0849 Mv-Mn/FA/Vit K/Lycop/Lut/Zeaxa (Ocuvite Eye + Multi Tablet) 1 Each Tablet, 1 EACH PO DAILY, (Reported) Entered as Reported by: RADHA SHAH on 03/04/21 0851 Tamsulosin HCl (Flomax) 0.4 Mg Cap, 0.4 MG PO HS, (Reported) Entered as Reported by: RAZIA MCINTOSH on 03/02/211712 Vit A/Vit C/Vit E/Zinc/Copper (Preservision Areds Tablet) 1 Each Tablet, 1 EACH PO DAILY, (Reported) Entered as Reported by: RAZIA MCINTOSH on 03/02/211712 [Prevagen] , 10 MG PO DAILY, (Reported) Entered as Reported by: RAZIA MCINTOSH on 03/02/211712 Review of Systems Review of Systems Constitutional: see HPI EENTM: see HPI Respiratory: see HPI Cardiovascular: see HPI Genitourinary: see HPI Musculoskeletal: see HPI Skin: see HPI Psychiatric/Neurological: See HPI Hematologic/Lymphatic: See HPI Immunological/Allergic: see HPI All Other Systems Reviewed Negative Unless Noted: Yes Past Mvohtoh-Slpwuo-Govehy Hx Patient Social History Tobacco Use?: Yes Substance use?: No Alcohol Use?: No Pt feels they are or have been: No Immunizations Up To Date First/Initial COVID19 Vaccinat: May 2020 Second COVID19 Vaccination Sabino: June 2020 COVID19 Vaccine Order Filler: Bernardo Past Medical History Surgery/Hospitalization HX: Hyperlipidemia; Anemia; Diastolic dysfunction; Encephalopathy; Osteoarthritis; Type 2 DM; Macular degeneration; Degenerative Joint Disease; Stage 3 CKD High Cholesterol, Hypertension Dementia Physical Exam Vital Signs - First Documented 08/31/21 17:00 Temp 37.3 Pulse 80 Resp 20 B/P (MAP) 144/68 (93) Pulse Ox 94 O2 Delivery Room Air Capillary Refill : Less Than 3 Seconds Height: '" Weight: lbs. oz. kg; 26.21 BMI Method: General Appearance: no apparent distress Eyes: Bilateral Eye Normal Inspection, Bilateral Eye PERRL, Bilateral Eye EOMI Neck: full range of motion, supple Respiratory: lungs clear, normal breath sounds Cardiovascular: normal peripheral pulses, regular rate, rhythm Gastrointestinal: non tender, soft Extremities: normal range of motion, non-tender Neurologic/Psychiatric: remote recruiter II-XII nml as tested, oriented x 3 Focused Exam Sepsis Stage: Ruled Out Lactate Level 08/31/21 17:11: Lactic Acid Level 2.12*H Lactic Acid Level Laboratory Tests Test 08/31/21 17:11 Lactic Acid Level 2.12 MMOL/L (0.50-2.00) *H Progress/Results/Core Measures Suspected Sepsis SIRS Temperature: Pulse: 80 Respiratory Rate: 20 Laboratory Tests 08/31/21 17:11: White Blood Count 6.8 Blood Pressure 144 /68 Mean: 93 08/31/21 17:11: Lactic Acid Level 2.12*H Laboratory Tests 08/31/21 17:11: Creatinine 1.04, INR Comment 1.0, Platelet Count 213, Total Bilirubin 0.6 Results/Orders Lab Results Laboratory Tests Test 08/31/21 17:11 08/31/21 18:04 08/31/21 18:05 Range/Units White Blood Count 6.8 4.3-11.0 10^3/uL Red Blood Count 4.11 L 4.30-5.52 10^6/uL Hemoglobin 13.1 L 13.3-17.7 g/dL Hematocrit 39 L 40-54 % Mean Corpuscular Volume 94 80-99 fL Mean Corpuscular Hemoglobin 32 25-34 pg Mean Corpuscular Hemoglobin Concent 34 32-36 g/dL Red Cell Distribution Width 12.8 10.0-14.5 % Platelet Count 213 130-400 10^3/uL Mean Platelet Volume 9.7 9.0-12.2 fL Immature Granulocyte % (Auto) 1 % Neutrophils (%) (Auto) 62 42-75 % Lymphocytes (%) (Auto) 22 12-44 % Monocytes (%) (Auto) 10 0-12 % Eosinophils (%) (Auto) 5 0-10 % Basophils (%) (Auto) 1 0-10 % Neutrophils # (Auto) 4.2 1.8-7.8 10^3/uL Lymphocytes # (Auto) 1.5 1.0-4.0 10^3/uL Monocytes # (Auto) 0.7 0.0-1.0 10^3/uL Eosinophils # (Auto) 0.3 0.0-0.3 10^3/uL Basophils # (Auto) 0.1 0.0-0.1 10^3/uL Immature Granulocyte # (Auto) 0.1 0.0-0.1 10^3/uL Prothrombin Time 13.4 12.2-14.7 SEC INR Comment 1.0 0.8-1.4 Activated Partial Thromboplast Time 25 24-35 SEC Sodium Level 139 135-145 MMOL/L Potassium Level 3.9 3.6-5.0 MMOL/L Chloride Level 103 98-107 MMOL/L Carbon Dioxide Level 22 21-32 MMOL/L Anion Gap 14 5-14 MMOL/L Blood Urea Nitrogen 14 7-18 MG/DL Creatinine 1.04 0.60-1.30 MG/DL Estimat Glomerular Filtration Rate 71 BUN/Creatinine Ratio 13 Glucose Level 185 H 70-105 MG/DL Lactic Acid Level 2.12 *H 0.50-2.00 MMOL/L Calcium Level 9.2 8.5-10.1 MG/DL Corrected Calcium 9.1 8.5-10.1 MG/DL Total Bilirubin 0.6 0.1-1.0 MG/DL Aspartate Amino Transf (AST/SGOT) 16 5-34 U/L Alanine Aminotransferase (ALT/SGPT) 8 0-55 U/L Alkaline Phosphatase 87 40-136 U/L Troponin I < 0.30 <0.30 NG/ML Pro-B-Type Natriuretic Peptide 107.2 H <75.0 PG/ML Total Protein 7.2 6.4-8.2 GM/DL Albumin 4.1 3.2-4.5 GM/DL Urine Color YELLOW Urine Clarity CLEAR Urine pH 6.0 5-9 Urine Specific [place] 1.015 L 1.016-1.022 Urine Protein NEGATIVE NEGATIVE Urine Glucose (UA) NEGATIVE NEGATIVE Urine Ketones NEGATIVE NEGATIVE Urine Nitrite NEGATIVE NEGATIVE Urine Bilirubin NEGATIVE NEGATIVE Urine Urobilinogen 0.2 < = 1.0 MG/DL Urine Leukocyte Esterase NEGATIVE NEGATIVE Urine RBC (Auto) NEGATIVE NEGATIVE Urine RBC 5-10 H /HPF Urine WBC 2-5 /HPF Urine Crystals NONE /LPF Urine Bacteria TRACE /HPF Urine Casts NONE /LPF Urine Mucus NEGATIVE /LPF Urine Culture Indicated NO My Orders Orders - ELVIN ABDI DO Cbc With Automated Diff (08/31/21 17:03) Comprehensive Metabolic Panel (08/31/21 17:03) Blood Culture (08/31/21 17:03) Urinalysis (08/31/21 17:03) Urine Culture (08/31/21 17:03) Protime With Inr (08/31/21 17:03) Partial Thromboplastin Time (08/31/21 17:03) Chest 1 View Ap/Pa Only (08/31/21 17:03) Ed Iv/Invasive Line Start (08/31/21 17:03) Ed Iv/Invasive Line Start (08/31/21 17:03) Vital Signs Adult Sepsis Patie Q15M (08/31/21 17:03) O2 (08/31/21 17:03) Remove Rings In Anticipation O (08/31/21 17:03) Lactic Acid Analyzer (08/31/21 17:03) Probnp Fs (08/31/21 17:03) Troponin I Fs (08/31/21 17:03) Ns Iv 1000 Ml (Sodium Chloride 0.9%) (08/31/21 18:00) Covid 19 Inhouse Test (08/31/21 17:48) Influenza A And B By Pcr (08/31/21 17:48) Isolation Central Supply Req (08/31/21 17:48) Ekg Tracing (08/31/21 17:20) Vital Signs/I&O 08/31/21 17:00 Temp 37.3 Pulse 80 Resp 20 B/P (MAP) 144/68 (93) Pulse Ox 94 O2 Delivery Room Air Capillary Refill : Less Than 3 Seconds Blood Pressure Mean: 93 Departure Communication (Admissions) Chest x-ray: No acute cardiopulmonary disease. EKG: NSR. No acute disease. EKG lab and imaging studies reviewed nondiagnostic. COVID is pending. Patient generalized weakness and unable to stand. He is a t high risk of fall and injury. Patient received Moderna booster 2 weeks ago. IV fluid bolus Dr. Anderson to admit to [facility]. Impression Primary Impression: Generalized weakness Disposition: ADMITTED INPATIENT Condition: Unchanged Admissions Decision to Admit/Date: August 31, 2021 Time/Decision to Admit Time: 18:42 Departure-Patient Inst. Referrals: BARRY MANSFIELD MD (PCP/Family) Primary Care Physician ELVIN ABDI DO August 31, 2021 18:04
[2021-08-31 18:07] LABS: BILIRUBIN,URINE NEGATIVE (NEGATIVE); CLARITY,URINE CLEAR; COLOR,URINE YELLOW; GLUCOSE, URINE (UA) NEGATIVE (NEGATIVE); KETONES,URINE NEGATIVE (NEGATIVE); LEUKOCYTE ESTERASE ,URINE NEGATIVE (NEGATIVE); NITRITE,URINE NEGATIVE (NEGATIVE); PROTEIN,URINE NEGATIVE (NEGATIVE)
[2021-08-31 18:11] LABS: BACTERIA,URINE TRACE /HPF
[2021-08-31] MEDS ORDERED: ONDANSETRON 4 MG/2 ML (SDV) Z0FRAN IV PRN (20:30)
[2021-08-31] MEDS ORDERED: MELATONIN 3 MG TABLET PO PRN (20:30)
[2021-08-31] MEDS ORDERED: polyethylene glycoL POWDER 17 GM (MIRALAX) PACK PO PRN (20:30)
[2021-08-31] MEDS ORDERED: guaiFENesin SYRUP 100 MG/5 ML 10 ML (ROBITUSSIN SF) PO PRN (20:30)
[2021-08-31] MEDS ORDERED: ANTACID SUSP 30 ML UDC (MYLANTA) PO PRN (20:30)
[2021-08-31] MEDS ORDERED: ONDANSETRON 4 MG (ZOFRAN) ORAL DISSOLVE TAB PO PRN (20:30)
[2021-08-31] MEDS ORDERED: BISACODYL 10 MG SUPP (DULCOLAX) PR PRN (20:30)
[2021-08-31] MEDS ORDERED: ACETAMINOPHEN 325 MG TABLET PO PRN (20:30)
[2021-08-31] MEDS ORDERED: HALOPERIDOL 5 MG/ML (HALDOL) VIAL IM PRN (20:30)
[2021-08-31] MEDS ORDERED: morphine INJ 4 MG/ML 1 ML (VIAL/SYRINGE) IV PRN (20:30)
[2021-08-31] MEDS ORDERED: diphenhydrAMINE 25 MG TAB (BENADRYL) PO PRN (20:30)
[2021-08-31] MEDS ORDERED: LORazepam INJ 2 MG/ML (ATIVAN) VIAL IVP PRN (20:30)
[2021-08-31] MEDS ORDERED: NALOXONE 0.4 MG/ML 1 ML (NARCAN) VIAL IV PRN (20:30)
[2021-08-31] MEDS ORDERED: BENZONATATE 100 MG (TESSALON) CAPSULE PO PRN (20:30)
[2021-08-31 21:26] VITALS: BP 131/65
[2021-08-31] MEDS ORDERED: DONE10TA41 PO (22:43)
[2021-08-31] MEDS: DOCUSATE SODIUM 100 MG (COLACE) CAP PO SCH (22:56)
[2021-08-31] MEDS: inSUlin ASPART (NovoLOG) 1 UNIT/0.01 ML (CHARGE PER UNIT) SC SCH (22:56)
[2021-08-31] MEDS: NS IV 1000 ML 1,000 ML IV SCH (23:17)
[2021-08-31 23:20] VITALS: BP 127/67
[2021-09-01] VITALS (15 sets, daily range): BP systolic 106–133; BP diastolic 49–71
[2021-09-01] MEDS: diphenhydrAMINE 50 MG/ML INJ (BENADRYL) IVP PRN ×2 (03:25→21:12)
[2021-09-01 05:39] LABS: BASOPHILS % (AUTO) 1 % (0-10); EOSINOPHILS # (AUTO) 0.2 10^3/uL (0.0-0.3); EOSINOPHILS % (AUTO) 4 % (0-10); HEMATOCRIT 38 % (40-54); HEMOGLOBIN 12.7 g/dL (13.3-17.7); LYMPHOCYTES # (AUTO) 1.2 10^3/uL (1.0-4.0); LYMPHOCYTES % (AUTO) 21 % (12-44); MEAN CORPUSCULAR HEMOGLOBIN 32 pg (25-34); MEAN CORPUSCULAR HGB CONC 33 g/dL (32-36); MEAN CORPUSCULAR VOLUME 97 fL (80-99); MEAN PLATELET VOLUME 9.7 fL (9.0-12.2); MONOCYTES # (AUTO) 0.8 10^3/uL (0.0-1.0); MONOCYTES % (AUTO) 13 % (0-12); NEUTROPHILS # (AUTO) 3.7 10^3/uL (1.8-7.8); NEUTROPHILS % (AUTO) 61 % (42-75); PLATELET COUNT 191 10^3/uL (130-400)
[2021-09-01 05:40] LABS: ALBUMIN 3.5 GM/DL (3.2-4.5)
[2021-09-01 05:41] LABS: POTASSIUM 3.8 MMOL/L (3.6-5.0)
[2021-09-01 05:42] LABS: CALCIUM 8.8 MG/DL (8.5-10.1)
[2021-09-01 05:43] LABS: TOTAL PROTEIN 6.6 GM/DL (6.4-8.2)
[2021-09-01 05:45] LABS: BILIRUBIN,TOTAL 0.9 MG/DL (0.1-1.0)
[2021-09-01] MEDS: inSUlin ASPART (NovoLOG) 1 UNIT/0.01 ML (CHARGE PER UNIT) SC SCH ×4 (06:00→21:12)
--- NOTE | 2021-09-01 07:02 | History & Physical-Hospitalist ---
History of Present Illness HPI/Chief Complaint CC: Cough with weakness HPI: This is an 81yoWM patient of [facility] who presents to the [facility] ER with complaints of cough and severe weakness. Labs, CXR, UA were all normal so patient was admitted to hospital for observation and supportive care. Patient was vaccinated with Moderna in 2020 and received both booster vaccines. COVID test was taken upon arrival to [place] [id number] and was found to be positive. Patient had been stable and received gentle IVF overnight but this morning was found to have more difficulty breathing and was found to be hypoxic and urinary retention required in/out catheter. Patient was assessed to have infiltrates on CXR this morning and patient was subsequently move to ICU after I had a conversation with his son who had told me after I updated him on the rapid progression of COVID "doesn't sound like he is going to make it" but after I asked for DNR he stated he must call his sister and after that phone call with his sister he called ARLEN Fagan back and told her he remained a full code and wanted aggressive treatment although he has baseline dementia and appears to be very declined and rapidly decompensating. Exam Limitations: clinical condition Date Seen 09/01/21 Time Seen by a Provider: 12:00 Attending Physician Zurdo Nair MD PCP Admitting Physician: Linda Centeno DO Attending Physician: Linda Centeno DO Referring Physician Date of Admission August 31, 2021 at 21:10 Home Medications & Allergies Home Medications Reviewed patient Home Medication Reconciliation performed by pharmacy medication reconciliations microbiology quality control technician and/or nursing. Patients Allergies have been reviewed. Allergies Allergies Coded Allergies Vompbtt-PGI-JbK Reductase Inhibitor (Verified Allergy, Unknown, 03/02/21) atorvastatin (Verified Allergy, Unknown, 03/02/21) clopidogrel (Verified Allergy, Unknown, 03/02/21) erythromycin base (Verified Allergy, Unknown, 03/02/21) meclizine (Verified Allergy, Unknown, 03/02/21) Past Vfiwvos-Cighfg-Lpcpql Hx Patient Social History Marrital Status: single Employed/Student: retired Tobacco Use?: Yes Tobacco type used: Cigarettes Smoking Status: Former Smoker Smokeless Tobacco Frequency: Never a User Substance use?: No Alcohol Use?: No Pt feels they are or have been: No Immunizations Up To Date Date of Influenza Vaccine: Jan 18, 2021 First/Initial COVID19 Vaccinat: May 2020 Second COVID19 Vaccination Sabino: June 2020 Current Status Advance Directives: No Communicates: Verbally Primary Language: Occitan Preferred Spoken Language: Occitan Is interpretation needed?: No Sensory deficits: Vision impairment, Hearing impairment Past Medical History High Cholesterol, Hypertension Dementia Review of Systems ROS-Unable to Obtain: clincal decompensation Constitutional: see HPI Physical Exam Physical Exam Vital Signs Vital Signs - First Documented 08/31/21 09/01/21 09/01/21 17:00 09:00 10:51 Temp 37.3 Pulse 80 Resp 20 B/P (MAP) 144/68 (93) Pulse Ox 94 O2 Delivery Room Air O2 Flow Rate 4.00 FiO2 36 Capillary Refill : Less Than 3 Seconds Height, Weight, BMI Height: '" Weight: lbs. oz. kg; 35.54 BMI Method: General Appearance: Chronically ill, Moderate Distress, Other (tachypnea with upper airway secretions) Neck: Full Range of Motion, Normal Inspection, Non Tender, Supple Respiratory: Accessory Muscle Use, Crackles, Decreased Breath Sounds, Wheezing Cardiovascular: Regular Rate, Rhythm Neurologic/Psychiatric: Alert, Oriented x3, No Motor/Sensory Deficits, Normal Mood/Affect Results Results/Procedures Labs Laboratory Tests 08/31/21 17:11 09/01/21 05:14 Patient resulted labs reviewed. Assessment/Plan Admission Diagnosis Assessment: Acute hypoxic respiratory failure COVID 19 PNA Acute dysphagia aspiration risk placed NPO h/o PNA Severe weakness Dementia Severe debility acute on chronic Plan: IV abx IV steroids O2 ICU transfer Prognosis guarded Admission Status: Inpatient Order (span 2 midnights) Reason for Inpatient Admission: resp failure Diagnosis/Problems Diagnosis/Problems (1) COVID-19 (2) Acute and chronic respiratory failure with hypoxia (3) Dementia (4) Hypertension (5) Dysphagia (6) At risk for aspiration LINDA CENTENO DO September 01, 2021 07:02
--- NOTE | 2021-09-01 09:42 | Diagnostic Imaging Report ---
INDICATION: COVID infection Portable AP view of the chest is obtained with comparison made to study one day earlier. Heart size remains within normal limits. There has been mild overall increase in bilateral perihilar density. No consolidation, pneumothorax or pleural fluid is seen. IMPRESSION: Increasing bilateral perihilar edema and/or pneumonitis. Radiographic followup would be useful to document resolution. Dictated by: Dictated on workstation # [id number]
[2021-09-01] MEDS: ENOXAPARIN 40 MG/0.4 ML (LOVENOX) SYR SC SCH (09:53)
[2021-09-01] MEDS: NS IV 1000 ML 1,000 ML IV SCH (09:54)
[2021-09-01] MEDS ORDERED: ACETAMINOPHEN 650 MG SUPP (TYLENOL) PR PRN (10:30)
[2021-09-01] MEDS: DOCUSATE SODIUM 100 MG (COLACE) CAP PO SCH ×2 (11:36→20:08)
[2021-09-01] MEDS ORDERED: KETOROLAC 15 MG/ML VIAL IVP PRN (13:00)
[2021-09-01 13:05] LABS: ABG BASE EXCESS -3.4 MMOL/L (-2.5-2.5); ABG OXYGEN SATURATION 96 % (94-100); ABG PCO2 36 MMHG (35-45); ABG PH 7.38 (7.37-7.43); ABG PO2 87 MMHG (79-93); ABG TCO2 21.5 MMOL/L (21.0-31.0)
[2021-09-01 13:06] LABS: ALLENS TEST YES-POS; INSPIRED O2 3L; PATIENT TEMP 38.9; VENTILATOR NO
[2021-09-01] MEDS: CEFEPIME INJECTION 1,000 MG in NS (IVPB) 50 ML IV SCH ×2 (13:17→21:11)
[2021-09-01] MEDS: AZITHROMYCIN INJECTION 500 MG in NS (IVPB) 250 ML IV SCH (13:17)
[2021-09-01] MEDS: D5 NS 1000 ML IV SOLUTION 1,000 ML IV SCH (13:20)
[2021-09-01] MEDS: RT-ALBUTEROL HFA 8.5 GM INHALER IH SCH ×3 (14:53→23:01)
--- NOTE | 2021-09-01 15:54 | Tele-ICU Consult ---
Progress Note 81 y/o transferred to ICU for hypoxemia and lethargy Covid Positive CXR: INDINGS: Right IJ central venous catheter is stable. The cardiac silhouette is stable. Small left greater than right bibasilar pleural-parenchymal opacities are present. This has improved on the left though slightly worsened on the right. No pneumothorax. Osseous structures appear stable. IMPRESSION: Small bibasilar pleural-parenchymal opacities, left greater than right. This could relate to a combination of pleural fluid with adjacent atelectasis and/or infiltrate. This has slightly improved on the left though slightly worsened on the right compared to the prior examination. IMP PNA likely due to covid with possible seconadry bacterial PNA Sterpods and antibiotics started Will check d dimer and lactate Focused Exam Lactate Level 08/31/21 17:11: Lactic Acid Level 2.12*H 08/31/21 19:30: Lactic Acid Level 1.75 Height, Weight, BMI Height: '" Weight: lbs. oz. kg; 35.54 BMI Method: Laboratory Tests 08/31/21 17:11 09/01/21 05:14 Results Results/Procedures Lab Laboratory Tests 08/31/21 17:11 09/01/21 05:14 Results Labs Labs Laboratory Tests 08/31/21 17:11: White Blood Count 6.8, Red Blood Count 4.11L, Hemoglobin 13.1L, Hematocrit 39L, Mean Corpuscular Volume 94, Mean Corpuscular Hemoglobin 32, Mean Corpuscular Hemoglobin Concent 34, Red Cell Distribution Width 12.8, Platelet Count 213, Mean Platelet Volume 9.7, Immature Granulocyte % (Auto) 1, Neutrophils (%) (Auto) 62, Lymphocytes (%) (Auto) 22, Monocytes (%) (Auto) 10, Eosinophils (%) (Auto) 5, Basophils (%) (Auto) 1, Neutrophils # (Auto) 4.2, Lymphocytes # (Auto) 1.5, Monocytes # (Auto) 0.7, Eosinophils # (Auto) 0.3, Basophils # (Auto) 0.1, Immature Granulocyte # (Auto) 0.1, Prothrombin Time 13.4, INR Comment 1.0, Activated Partial Thromboplast Time 25, Sodium Level 139, Potassium Level 3.9, Chloride Level 103, Carbon Dioxide Level 22, Anion Gap 14, Blood Urea Nitrogen 14, Creatinine 1.04, Estimat Glomerular Filtration Rate 71, BUN/Creatinine Ratio 13, Glucose Level 185H, Lactic Acid Level 2.12*H, Calcium Level 9.2, Corrected Calcium 9.1, Total Bilirubin 0.6, Aspartate Amino Transf (AST/SGOT) 16, Alanine Aminotransferase (ALT/SGPT) 8, Alkaline Phosphatase 87, Troponin I < 0.30, Pro-B-Type Natriuretic Peptide 107.2H, Total Protein 7.2, Albumin 4.1 08/31/21 18:04: Influenza Type A (RT-PCR) Not Detected, Influenza Type B (RT-PCR) Not Detected, SARS-CoV-2 RNA (RT-PCR) DetectedH 08/31/21 18:05: Urine Color YELLOW, Urine Clarity CLEAR, Urine pH 6.0, Urine Specific Pitcher 1.015L, Urine Protein NEGATIVE, Urine Glucose (UA) NEGATIVE, Urine Ketones NEGAT VENECIA, Urine Nitrite NEGATIVE, Urine Bilirubin NEGATIVE, Urine Urobilinogen 0.2, Urine Leukocyte Esterase NEGATIVE, Urine RBC (Auto) NEGATIVE, Urine RBC 5-10H, Urine WBC 2-5, Urine Crystals NONE, Urine Bacteria TRACE, Urine Casts NONE, Urine Mucus NEGATIVE, Urine Culture Indicated NO 08/31/21 19:30: Lactic Acid Level 1.75 08/31/21 22:05: Glucometer 101 09/01/21 04:56: Glucometer 102 09/01/21 05:14: White Blood Count 6.0, Red Blood Count 3.97L, Hemoglobin 12.7L, Hematocrit 38L, Mean Corpuscular Volume 97, Mean Corpuscular Hemoglobin 32, Mean Corpuscular Hemoglobin Concent 33, Red Cell Distribution Width 12.6, Platelet Count 191, M gricel Platelet Volume 9.7, Immature Granulocyte % (Auto) 1, Neutrophils (%) (Auto) 61, Lymphocytes (%) (Auto) 21, Monocytes (%) (Auto) 13H, Eosinophils (%) (Auto) 4, Basophils (%) (Auto) 1, Neutrophils # (Auto) 3.7, Lymphocytes # (Auto) 1.2, Monocytes # (Auto) 0.8, Eosinophils # (Auto) 0.2, Basophils # (Auto) 0.0, Immature Granulocyte # (Auto) 0.0, Sodium Level 142, Potassium Level 3.8, Chloride Level 107, Carbon Dioxide Level 21, Anion Gap 14, Blood Urea Nitrogen 11, Creatinine 1.00, Estimat Glomerular Filtration Rate 75, BUN/Creatinine Ratio 11, Glucose Level 109H, Calcium Level 8.8, Corrected Calcium 9.2, Total Bilirubin 0.9, Aspartate Amino Transf (AST/SGOT) 18, Alanine Aminotransferase (ALT/SGPT) 10, Alkaline Phosphatase 72, Total Protein 6.6, Albumin 3.5 09/01/21 10:41: Glucometer 110 09/01/21 12:50: Blood Gas Puncture Site R RAD, Blood Gas Patient Temperature 38.9, Arterial Blood pH 7.38, Arterial Blood Partial Pressure CO2 36, Arterial Blood Partial Pressure O2 87, Arterial Blood HCO3 21L, Arterial Blood Total CO2 21.5, Arterial Blood Oxygen Saturation 96, Arterial Blood Base Excess -3.4L, Jason Test YES- POS, Blood Gas Ventilator Setting NO, Blood Gas Inspired Oxygen 3L Microbiology 08/31/21 Blood Culture - Preliminary, Resulted No growth ABNER OLSON MD September 01, 2021 15:54
[2021-09-01] MEDS: RT-ALBUTEROL HFA 8.5 GM INHALER IH PRN (19:54)
[2021-09-02] VITALS (16 sets, daily range): BP systolic 89–113; BP diastolic 48–57
[2021-09-02] MEDS: RT-ALBUTEROL HFA 8.5 GM INHALER IH SCH ×6 (03:16→21:52)
[2021-09-02] MEDS ORDERED: POTASSIUM CL 10MEQ/50ML IVPB 50 ML IV SCH (06:00)
[2021-09-02] MEDS ORDERED: MAGNESIUM 1 GM/100 ML IVPB 100 ML IV SCH (06:00)
[2021-09-02] MEDS ORDERED: KCL 20 MEQ TAB (K-DUR) PO SCH (06:00)
[2021-09-02 06:16] LABS: BASOPHILS # (AUTO) 0.1 10^3/uL (0.0-0.1); BASOPHILS % (AUTO) 0 % (0-10); EOSINOPHILS % (AUTO) 0 % (0-10); HEMATOCRIT 39 % (40-54); HEMOGLOBIN 12.4 g/dL (13.3-17.7); LYMPHOCYTES % (AUTO) 12 % (12-44); MEAN CORPUSCULAR HEMOGLOBIN 32 pg (25-34); MEAN CORPUSCULAR HGB CONC 32 g/dL (32-36); MEAN CORPUSCULAR VOLUME 100 fL (80-99); MEAN PLATELET VOLUME 10.4 fL (9.0-12.2); MONOCYTES # (AUTO) 0.9 10^3/uL (0.0-1.0); MONOCYTES % (AUTO) 5 % (0-12); NEUTROPHILS # (AUTO) 14.6 10^3/uL (1.8-7.8); NEUTROPHILS % (AUTO) 83 % (42-75); PLATELET COUNT 158 10^3/uL (130-400); WHITE BLOOD COUNT 17.6 10^3/uL (4.3-11.0)
[2021-09-02 06:35] LABS: ALBUMIN 3.2 GM/DL (3.2-4.5); POTASSIUM 3.8 MMOL/L (3.6-5.0)
[2021-09-02 06:36] LABS: CALCIUM 8.6 MG/DL (8.5-10.1)
[2021-09-02 06:38] LABS: TOTAL PROTEIN 6.1 GM/DL (6.4-8.2)
[2021-09-02 06:39] LABS: BILIRUBIN,TOTAL 0.6 MG/DL (0.1-1.0)
[2021-09-02 06:41] LABS: PHOSPHORUS 3.3 MG/DL (2.3-4.7)
[2021-09-02 06:45] LABS: MAGNESIUM 1.9 MG/DL (1.6-2.4)
[2021-09-02] MEDS: inSUlin ASPART (NovoLOG) 1 UNIT/0.01 ML (CHARGE PER UNIT) SC SCH ×4 (06:45→20:37)
[2021-09-02 07:01] LABS: BAND NEUTROPHILS 10 %; LYMPHOCYTES % (MANUAL) 12 %; MONOCYTES % (MANUAL) 4 %; NEUTROPHILS % (MANUAL) 74 %; RBC MORPH NORMAL
--- NOTE | 2021-09-02 07:21 | Progress Note - Hospitalist ---
Subjective HPI/CC On Admission Date Seen by Provider: September 02, 2021 Time Seen by Provider: 10:00 CC: Cough with weakness HPI: This is an 81yoWM patient of [facility] who presents to the [facility] ER with complaints of cough and severe weakness. Labs, CXR, UA were all normal so patient was admitted to hospital for observation and supportive care. Patient was vaccinated with Moderna in 2020 and received both booster vaccines. COVID test was taken upon arrival to [place] [address] and was found to be positive. Patient had been stable and received gentle IVF overnight but this morning was found to have more difficulty breathing and was found to be hypoxic and urinary retention required in/out catheter. Patient was assessed to have infiltrates on CXR this morning and patient was subsequently move to ICU after I had a conversation with his son who had told me after I updated him on the rapid progression of COVID "doesn't sound like he is going to make it" but after I asked for DNR he stated he must call his sister and after that phone call with his sister he called ARLEN Fagan back and told her he remained a full code and wanted aggressive treatment although he has baseline dementia and appears to be very declined and rapidly decompensating. Subjective/Events-last exam Patient has improved Still NPO due to dysphagia and aspiration risk No pain reported Moving to 4th floor Talked to him about the COVID results Review of Systems General: Fatigue, Malaise Pulmonary: Cough Focused Exam Lactate Level 08/31/21 17:11: Lactic Acid Level 2.12*H 08/31/21 19:30: Lactic Acid Level 1.75 09/01/21 16:17: Lactic Acid Level 1.13 Objective Exam Vital Signs Vital Signs Date Time Temp Pulse Resp B/P (MAP) Pulse Ox O2 Delivery O2 Flow Rate FiO2 09/02/21 16:00 35.1 55 18 110/55 (73) 92 Room Air 09/02/21 15:16 1.00 09/01/21 10:51 36 Capillary Refill : Less Than 3 Seconds General Appearance: No Apparent Distress, WD/WN, Chronically ill Respiratory: No Accessory Muscle Use, No Respiratory Distress, Crackles, Decreased Breath Sounds Cardiovascular: Regular Rate, Rhythm Neurologic/Psychiatric: Alert, Disoriented Results/Procedures Lab Laboratory Tests 09/02/21 05:43 Patient resulted labs reviewed. Assessment/Plan Assessment and Plan Assess & Plan/Chief Complaint Assessment: Acute hypoxic respiratory failure COVID 19 PNA Acute dysphagia aspiration risk placed NPO h/o PNA Severe weakness Dementia Severe debility acute on chronic Plan: IV abx IV steroids O2 ICU transfer Prognosis guarded 09/02: Moving to 4th floor Improved overall Prognosis guarded Diagnosis/Problems Diagnosis/Problems (1) COVID-19 (2) Acute and chronic respiratory failure with hypoxia (3) Dementia (4) Hypertension (5) Dysphagia (6) At risk for aspiration JULIAN ANDERSON DO September 02, 2021 07:21
--- NOTE | 2021-09-02 07:30 | Diagnostic Imaging Report ---
INDICATION: Dyspnea. Time of Exam: 4:59 AM Correlation is made with prior chest from one day earlier. Heart size normal. There is central congestion. There is some infiltrate in the right base, increased since yesterday. There may be some patchy infiltrate in the left base as well. No effusion or pneumothorax is detected. IMPRESSION: Central congestion with bibasilar infiltrates or atelectasis. Dictated by: Dictated on workstation # [id number]
--- NOTE | 2021-09-02 08:18 | Physical Therapy Progress Note ---
Therapy Progress Note Patient has been transferred to ICU from the medical floor. Will need new physical therapy orders to treat patient when appropriate and medically stable. JORGE PATEL PT September 02, 2021 08:18
[2021-09-02] MEDS: DOCUSATE SODIUM 100 MG (COLACE) CAP PO SCH ×2 (09:00→20:59)
[2021-09-02] MEDS: CEFEPIME INJECTION 1,000 MG in NS (IVPB) 50 ML IV SCH ×2 (09:01→20:59)
--- NOTE | 2021-09-02 09:01 | Tele-ICU Progress Note ---
Subjective Date Seen by a Provider: September 02, 2021 Time Seen by a Provider: 07:30 Subjective/Events-last exam This virtual visit was conducted using real time audio/video. Thank you for asking us to see this patient for respiratory insufficiency due to Covid plus possible superimposed bacterial pna. Recent events: PE: VSS. O2 sat 93% on 3 LPM NC. HEENT: No obvious masses, adenopathy or JVD. Chest: coarse BS on auscultation. CV: RRR S1 S2 No murmur or added sounds. Abd: Non-tender. Bowel sounds Y. : Unremarkable. Don Y. [employer]/psychiatric: Grossly intact. No obvious focal findings. Extremities: No edema. Capillary refill < 3 seconds. Skin: unremarkable. Results: Elevated WCC 17.6, BUN 21, BG 159. Decreased Hb 12.4. B.38/36/97 on 3 LPM. CXR: B infilts. . Available chart/ vitals / labs / images reviewed. Video assessment done using teleICU camera, rest of exam as per RN. A/P: Respiratory insufficiency: Continue present management with O2. PRN Alb. Monitor for increasing oxygenation needs and/or need for intubation. Critical Care: critically ill patient. Cont. abx, dex., SSI, Katherine. Discussed with ARLEN Bentley. Asked RN to reach out to eICU if any questions or concerns later. Time spent with patient/coordination of care with other health professionals (mins): 20. Sepsis Event Evaluation Height, Weight, BMI Height: '" Weight: lbs. oz. kg; 35.54 BMI Method: Focused Exam Lactate Level 08/31/21 17:11: Lactic Acid Level 2.12*H 08/31/21 19:30: Lactic Acid Level 1.75 09/01/21 16:17: Lactic Acid Level 1.13 Exam Exam Patient acknowledged, consented, and participated in this virtual visit which was conducted using real time audio/video Vital Signs Date Time Temp Pulse Resp B/P (MAP) Pulse Ox O2 Delivery O2 Flow Rate FiO2 09/02/21 08:00 36.0 09/02/21 07:37 98 Nasal Cannula 2.00 09/02/21 07:35 98 Nasal Cannula 4.00 09/02/21 06:00 47 101/49 (71) 98 Nasal Cannula 4.00 09/02/21 05:00 47 21 100/51 (70) 98 Nasal Cannula 4.00 09/02/21 04:00 49 19 111/52 (72) 98 Nasal Cannula 4.00 09/02/21 04:00 36.2 09/02/21 03:18 98 Nasal Cannula 4.00 09/02/21 03:00 48 23 100/49 (76) 97 Nasal Cannula 4.00 09/02/21 02:00 51 36 89/51 (73) 96 Nasal Cannula 4.00 09/02/21 01:00 56 38 102/52 (69) 96 Nasal Cannula 4.00 09/02/21 01:00 55 09/02/21 00:00 49 22 100/51 (71) 95 Nasal Cannula 4.00 09/01/21 23:03 95 Nasal Cannula 3.00 09/01/21 23:00 48 11 110/55 (73) 98 Nasal Cannula 4.00 09/01/21 22:00 53 19 109/57 (73) 97 Nasal Cannula 4.00 09/01/21 21:00 53 20 106/49 (71) 93 Nasal Cannula 4.00 09/01/21 20:00 92 Nasal Cannula 4.00 09/01/21 20:00 36.6 09/01/21 20:00 55 22 113/53 (78) 97 Nasal Cannula 4.00 09/01/21 19:54 95 Nasal Cannula 3.00 09/01/21 19:00 55 22 114/54 (73) 94 Nasal Cannula 4.00 09/01/21 19:00 55 09/01/21 18:00 56 23 118/56 (76) 93 Nasal Cannula 4.00 09/01/21 17:00 68 22 123/65 (84) 95 Nasal Cannula 4.00 09/01/21 16:00 71 23 118/54 (75) 93 Nasal Cannula 4.00 09/01/21 15:04 79 26 122/71 (88) 95 Nasal Cannula 4.00 09/01/21 14:53 95 Nasal Cannula 3.00 09/01/21 14:20 78 09/01/21 14:15 78 30 112/61 (78) 95 Nasal Cannula 4.00 09/01/21 13:57 39.7 09/01/21 13:42 75 32 95 09/01/21 12:26 38.9 73 26 133/60 (84) 96 Nasal Cannula 4.00 09/01/21 11:33 92 Nasal Cannula 3.00 09/01/21 10:51 37.2 64 92 36 09/01/21 10:49 95 Nasal Cannula 4.00 09/01/21 10:45 84 Room Air 0.00 09/01/21 10:16 38.1 64 26 123/60 (81) 95 Nasal Cannula 4.00 09/01/21 09:00 92 Nasal Cannula 4.00 I & O 09/02/21 07:00 Intake Total 100 ml Output Total 1549 ml Balance -1449 ml Height & Weight Height: '" Weight: lbs. oz. kg; 35.54 BMI Method: General Appearance: Chronically ill, Moderate Distress, Other (tachypnea with upper airway secretions) Neck: Full Range of Motion, Normal Inspection, Non Tender, Supple Respiratory: Accessory Muscle Use, Crackles, Decreased Breath Sounds, Wheezing Cardiovascular: Regular Rate, Rhythm Capillary Refill: Less Than 3 Seconds Gastrointestinal: non tender, soft Neurologic/Psychiatric: Alert, Oriented x3, No Motor/Sensory Deficits, Normal Mood/Affect Results Lab Laboratory Tests 08/31/21 17:11 09/01/21 05:14 09/02/21 05:43 Assessment/Plan Assessment/Plan See free text. Critical Care: Critically Ill Patient DARIUS VALDEZ MD September 02, 2021 09:01
[2021-09-02] MEDS: AZITHROMYCIN INJECTION 500 MG in NS (IVPB) 250 ML IV SCH (09:02)
[2021-09-02] MEDS: ENOXAPARIN 40 MG/0.4 ML (LOVENOX) SYR SC SCH (09:02)
[2021-09-02] MEDS: D5 NS 1000 ML IV SOLUTION 1,000 ML IV SCH (12:46)
[2021-09-03] MEDS: RT-ALBUTEROL HFA 8.5 GM INHALER IH SCH ×6 (03:39→22:50)
[2021-09-03 04:29] VITALS: BP 101/49
[2021-09-03] MEDS: D5 NS 1000 ML IV SOLUTION 1,000 ML IV SCH ×2 (04:33→20:56)
[2021-09-03 05:48] LABS: BASOPHILS % (AUTO) 0 % (0-10); EOSINOPHILS % (AUTO) 0 % (0-10); HEMATOCRIT 36 % (40-54); LYMPHOCYTES # (AUTO) 2.1 10^3/uL (1.0-4.0); LYMPHOCYTES % (AUTO) 16 % (12-44); MEAN CORPUSCULAR HEMOGLOBIN 32 pg (25-34); MEAN CORPUSCULAR HGB CONC 34 g/dL (32-36); MEAN CORPUSCULAR VOLUME 96 fL (80-99); MEAN PLATELET VOLUME 9.7 fL (9.0-12.2); MONOCYTES # (AUTO) 0.6 10^3/uL (0.0-1.0); MONOCYTES % (AUTO) 4 % (0-12); NEUTROPHILS # (AUTO) 10.3 10^3/uL (1.8-7.8); NEUTROPHILS % (AUTO) 79 % (42-75); PLATELET COUNT 185 10^3/uL (130-400); WHITE BLOOD COUNT 13.1 10^3/uL (4.3-11.0)
[2021-09-03 06:01] LABS: POTASSIUM 3.7 MMOL/L (3.6-5.0)
[2021-09-03 06:03] LABS: CALCIUM 8.7 MG/DL (8.5-10.1)
[2021-09-03 06:04] LABS: TOTAL PROTEIN 5.8 GM/DL (6.4-8.2)
[2021-09-03 06:06] LABS: BILIRUBIN,TOTAL 0.5 MG/DL (0.1-1.0)
[2021-09-03 06:07] LABS: CREATININE SERUM 0.93 MG/DL (0.60-1.30)
[2021-09-03] MEDS: inSUlin ASPART (NovoLOG) 1 UNIT/0.01 ML (CHARGE PER UNIT) SC SCH ×4 (06:14→20:56)
--- NOTE | 2021-09-03 06:17 | Progress Note - Hospitalist ---
Subjective HPI/CC On Admission Date Seen by Provider: September 03, 2021 Time Seen by Provider: 10:00 CC: Cough with weakness HPI: This is an 81yoWM patient of [facility] who presents to the [facility] ER with complaints of cough and severe weakness. Labs, CXR, UA were all normal so patient was admitted to hospital for observation and supportive care. Patient was vaccinated with Moderna in 2020 and received both booster vaccines. COVID test was taken upon arrival to [place] [address] and was found to be positive. Patient had been stable and received gentle IVF overnight but this morning was found to have more difficulty breathing and was found to be hypoxic and urinary retention required in/out catheter. Patient was assessed to have infiltrates on CXR this morning and patient was subsequently move to ICU after I had a conversation with his son who had told me after I updated him on the rapid progression of COVID "doesn't sound like he is going to make it" but after I asked for DNR he stated he must call his sister and after that phone call with his sister he called ARLEN Fagan back and told her he remained a full code and wanted aggressive treatment although he has baseline dementia and appears to be very declined and rapidly decompensating. Subjective/Events-last exam Pt is doing a lot better Discontinue the mcgee catheter Room air at 94% Confused but that is baseline Review of Systems General: Fatigue, Malaise Pulmonary: Dyspnea, Cough Focused Exam Lactate Level 09/01/21 16:17: Lactic Acid Level 1.13 Objective Exam Vital Signs Vital Signs Date Time Temp Pulse Resp B/P (MAP) Pulse Ox O2 Delivery O2 Flow Rate FiO2 09/04/21 03:51 36.5 60 18 132/60 (84) 92 Room Air 09/02/21 15:16 1.00 09/01/21 10:51 36 Capillary Refill : Less Than 3 Seconds General Appearance: No Apparent Distress, WD/WN, Chronically ill Respiratory: Lungs Clear, Normal Breath Sounds Cardiovascular: Regular Rate, Rhythm Neurologic/Psychiatric: Alert, Oriented x3, Disoriented Results/Procedures Lab Laboratory Tests 09/04/21 05:36 Patient resulted labs reviewed. Assessment/Plan Assessment and Plan Assess & Plan/Chief Complaint Assessment: Acute hypoxic respiratory failure COVID 19 PNA Acute dysphagia aspiration risk placed NPO h/o PNA Severe weakness Dementia Severe debility acute on chronic Plan: IV abx IV steroids O2 ICU transfer Prognosis guarded 09/02: Moving to 4th floor Improved overall Prognosis guarded 09/03/21: Supportive care PT and OT DC catheter Critical Care Critically Ill Patient Diagnosis/Problems Diagnosis/Problems (1) COVID-19 (2) Acute and chronic respiratory failure with hypoxia (3) Dementia (4) Hypertension (5) Dysphagia (6) At risk for aspiration JULIAN ANDERSON DO September 03, 2021 06:17
[2021-09-03 07:42] VITALS: BP 120/59
--- NOTE | 2021-09-03 08:14 | Diagnostic Imaging Report ---
Clinical indications: Patient with dyspnea. EXAM: Portable chest x-ray semiupright view. COMPARISON: Chest x-ray dated 09/02/2021. FINDINGS: There is progression of prominence of the right perihilar region. There is slight improved aeration right lung base and slight progression of patchy airspace opacities involving the right perihilar and right upper lobe region concerning for infiltrates. There is progression of mild left basilar atelectasis versus infiltrate. There is no pleural effusion or pneumothorax. Pulmonary vasculature is mildly prominent centrally. Cardiac silhouette is within normal limits. There are degenerative spurs involving the spine. IMPRESSION: 1: There is interval slight improved aeration to right lung base. There is interval slight progression of suspected lung infiltrates involving right perihilar and right upper lobe region. 2: There is progression of mild left basilar atelectasis versus infiltrate. Dictated by: Dictated on workstation # [id number]
[2021-09-03] MEDS: ENOXAPARIN 40 MG/0.4 ML (LOVENOX) SYR SC SCH (08:16)
[2021-09-03] MEDS: AZITHROMYCIN INJECTION 500 MG in NS (IVPB) 250 ML IV SCH (08:17)
[2021-09-03] MEDS: CEFEPIME INJECTION 1,000 MG in NS (IVPB) 50 ML IV SCH ×2 (08:18→20:56)
--- NOTE | 2021-09-03 08:37 | Occupational Therapy Eval ---
OT Evaluation-General/PLF Medical Diagnosis Admission Date September 01, 2021 at 15:38 Medical Diagnosis: generalized weakness, COVID-19 Onset Date: September 01, 2021 Therapy Diagnosis Therapy Diagnosis: decreased ADL status Precautions Precautions/Isolations: Airborne Isolation, Contact Isolation, Droplet Isolation Referral Physician: Jacobo Rebolledo Reason: Evaluation/Treatment Medical History Pertinent Medical History: HTN Additional Medical History dementia Current History ED due to c/o severe weakness, tested positive for COVID-19 at hospital Social History Home: Single Level Current Living Status: Spouse Entry Into Home: Stairs With Railing Steps Into Home: 3 ("several") ADL-Prior Level of Function SCALE: Activities may be completed with or without assistive devices. 6-Gyuqgjpbcw-qucukpz completes the activity by him/herself with no assistance from a helper. 5-Set-up or Clean-up Assistance-helper sets up or cleans up; patient completes activity. [place] assists only prior to or following the activity. 4-Supervision or Touching Assistance-helper provides verbal cues and/or touching/steadying and/or contact guard assistance as patient completes activity. Assistance may be provided throughout the activity or intermittently. 3-Partial/Moderate Assistance-helper does LESS THAN HALF the effort. [place] lifts, holds or supports trunk or limbs, but provides less than half the effort. 2-Substantial/Maximal Assistance-helper does MORE THAN HALF the effort. [place] lifts or holds trunk or limbs and provides more than half the effort. 7-Msvorfhqm-zrymgw does ALL the effort. Patient does none of the effort to complete the activity. Or, the assistance of 2 or more helpers is required for the patient to complete the activity. If activity was not attempted, code reason: 7-Patient Refused. 9-Not Applicable-not attempted and the patient did not perform the activity before the current illness, exacerbation or injury. 10-Not Attempted due to Environmental Limitations-(lack of equipment, weather restraints, etc.). 88-Not Attempted due to Medical Conditions or Safety Concerns. ADL PLOF Comments Pt reports being independent with ADLs and functional mobility at [facility], no AD. He has baseline dementia Self Care: Independent Functional Cognition: Needed Some Help OT Current Status Subjective Pt in bed, agreeable to OT evaluation. Pt stated need to urinate multiple times throughout session, OT attempted redirection to catheter. Pt didn't appear to understand. Mental Status/Objective Patient Orientation: Person, Confused Attachments: Don Catheter, IV Current Upper Extremity ROM WFL Upper Extremity Strength unable to formally assess due to confusion, grossly 3/5 BUEs. ADL-Treatment Eating (QC): 88 (NPO) On/Off Footwear (QC): 2 (Max A donning gripper socks due to being tight on his foot.) Other Treatments Pt in bed, transferred supine to sit EOB, min A. UE screen attempted but pt had difficulty following instructions. Pt stood at FWW, performed functional mobility to door then back to recliner, cues required for safety and direction. Post tx, pt up in recliner, call light in reach and all needs met. Education OT Patient Education: Correct positioning, Energy conservation, Exercise pro gram, Modified ADL techniques, Progress toward Goal/Update tx plan, Purpose of tx/functional activities, Rehab process Teaching Recipient: Patient Teaching Methods: Discussion Response to Teaching: Verbalize Understanding OT Bristle Machine Operator Goals Bristle Machine Operator Goals Time Frame: Sep 13, 2021 Eating (QC): 6 Oral Hygiene (QC): 6 Toileting Hygiene (QC): 4 Shower/Bathe Self (QC): 4 Upper Body Dressing (QC): 5 Lower Body Dressing (QC): 4 On/Off Footwear (QC): 4 Additional Goals: 1-Demonstrate ADL Tasks, 2-Verbalize Understanding, 3- ImproveStrength/Taryn 1=Demonstrate adherence to instructed precautions during ADL tasks. 2=Patient will verbalize/demonstrate understanding of assistive devices/modifications for ADL. 3=Patient will improve strength/tolerance for activity to enable patient to perform ADL's. OT Education/Plan Problem List/Assessment Assessment: Decreased Activ Tolerance, Decreased UE Strength, Impaired Funct Balance, Impaired I ADL's, Impaired Self-Care Skills Discharge Recommendations Plan/Recommendations: Continue POC Treatment Plan/Plan of Care Patient would benefit from OT for education, treatment and training to promote independence in ADL's, mobility, safety and/or upper extremity function for ADL's. Plan of Care: ADL Retraining, Functional Mobility, UE Funct Exercise/Act Treatment Duration: Sep 13, 2021 Frequency: 3 times per week (3-5 times per week) Estimated Hrs Per Day: .25 hour per day Agreement: Yes Rehab Potential: Guarded Time/GCodes Start Time: 08:09 Stop Time: 08:24 Total Time Billed (hr/min): 15 Billed Treatment Time 1, GAYLA BROCK OT September 03, 2021 08:37
--- NOTE | 2021-09-03 08:37 | Physical Therapy Evaluation ---
PT Evaluation-General Medical Diagnosis Admission Date September 01, 2021 at 15:38 Medical Diagnosis: covid 19 Onset Date: Sep 10, 2021 Therapy Diagnosis Therapy Diagnosis: impaired mobility Precautions Precautions/Isolations: Airborne Isolation, Contact Isolation, Droplet Isolation Referral Physician: Linda Centeno DO Reason for Referral: Evaluation/Treatment Medical History Pertinent Medical History: HTN Additional Medical History Past Medical History High Cholesterol, Hypertension Dementia Reviewed History: Yes Social History Current Living Status: Spouse Entry Into Home: Stairs With Railing PT Steps Into Home: 3 Prior Prior Level of Function SCALE: Activities may be completed with or without assistive devices. 0-Cjmvacxpzd-hevaztn completes the activity by him/herself with no assistance from a helper. 5-Set-up or Clean-up Assistance-helper sets up or cleans up; patient completes activity. [place] assists only prior to or following the activity. 4-Supervision or Touching Assistance-helper provides verbal cues and/or touching/steadying and/or contact guard assistance as patient completes activit y. Assistance may be provided throughout the activity or intermittently. 3-Partial/Moderate Assistance-helper does LESS THAN HALF the effort. [place] lifts, holds or supports trunk or limbs, but provides less than half the effort. 2-Substantial/Maximal Assistance-helper does MORE THAN HALF the effort. [place] lifts or holds trunk or limbs and provides more than half the effort. 8-Fxeqwepge-rsnsbr does ALL the effort. Patient does none of the effort to complete the activity. Or, the assistance of 2 or more helpers is required for the patient to complete the activity. If activity was not attempted, code reason: 7-Patient Refused. 9-Not Applicable-not attempted and the patient did not perform the activity before the current illness, exacerbation or injury. 10-Not Attempted due to Environmental Limitations-(lack of equipment, weather restraints, etc.). 88-Not Attempted due to Medical Conditions or Safety Concerns. Bed Mobility: 6 Transfers (B,C,W/C): 6 Gait: 6 Stairs: 6 Indoor Mobility (Ambulation): Independent Stairs: Independent PT Evaluation-Current Subjective Patient in bed pre tx, agrees to PT, has no complaints of pain. Pt/Family Goals to be independent at home Objective Patient Orientation: Person, Confused Attachments: Don Catheter, IV ROM/Strength ROM Lower Extremities WNL Strength Lower Extremities not tested, patient has difficulty following directions Sensory Hearing: Functional Sensation Right Lower Extremit: Intact Sensation Left Lower Extremity: Intact Transfers Roll Left to Right (QC): 3 Lying to Sitting/Side of Bed(Q: 3 Sit to Stand (QC): 4 Chair/Uxj-af-Qaxbv Xfer(QC): 4 cues for safety and direction, tends to try to sit before getting completely back to the chair Gait Does the Patient Walk?: Yes Mode of Locomotion: Walk Anticipated Mode of Locomotion: Walk Walk 10 feet (QC): 4 Distance: 20' Gait Assistive Device: FWW Comments/Gait Description slow but steady ambulation, cues for safety and direction Balance Sitting Static: Normal Sitting Dynamic: Normal Standing Static: Fair Standing Dynamic: Fair Assessment/Needs Patient in recliner post tx with nurse call, phone, tray, chair alarm on. Patient has impaired mobility, strength, endurance. He is confused and needs cues for direction and safety when up. Rehab Potential: Fair PT Application Development Specialist Goals Care Home Goals PT Care Home Goals Time Frame: Sep 10, 2021 Roll Left & Right (QC): 6 Sit to Lying (QC): 6 Lying-Sitting on Side/Bed(QC): 6 Sit to Stand (QC): 4 (SBA) Chair/Nyn-dl-[place] Xfer(QC): 4 (SBA) Walk 10 feet (QC): 4 (SBA) Walk 50ft with 2 Turns (QC): 4 (SBA) Walk 150 ft (QC): 4 (SBA) PT Plan Problem List Problem List: Activity Tolerance, Functional Strength, Safety, Balance, Gait, Transfer, Bed Mobility, ROM Treatment/Plan Treatment Plan: Continue Plan of Care Treatment Plan: Bed Mobility, Education, Functional Activity Taryn, Functional Strength, Gait, Safety, Therapeutic Exercise, Transfers Treatment Duration: Sep 10, 2021 Frequency: 6 times per week Estimated Hrs Per Day: .25 hour per day Patient and/or Family Agrees t: Yes Safety Risks/Education Patient Education: Gait Training, Transfer Techniques, Correct Positioning, Safety Issues Teaching Recipient: Patient Teaching Methods: Demonstration, Discussion Response to Teaching: Reinforcement Needed Discharge Recommendations Plan Patient will perform bed mobility and transfer training, balance and endurance training, functional strengthening, stair training, gait training, and education, to improve functional mobility and independence at home. Therapy Discharge Recommendati: Home & Family, Post Acute PT Time/GCodes Time In: 0809 Time Out: 823 Total Billed Treatment Time: 15 Total Billed Treatment 1 visit JORGE LUTHER PT September 03, 2021 08:36
[2021-09-03] MEDS: DOCUSATE SODIUM 100 MG (COLACE) CAP PO SCH ×2 (09:00→20:08)
[2021-09-03] MEDS: SENNA W/DOCUSATE (SENOKOT S) TABLET PO SCH ×2 (10:30→20:08)
[2021-09-03] MEDS: RT-ALBUTEROL HFA 8.5 GM INHALER IH PRN (11:00)
--- NOTE | 2021-09-03 11:30 | ST Dysphagia Evaluation ---
Speech Evaluation-General Medical Diagnosis Generalized Weakness, COVID-19 Onset Date: September 01, 2021 Therapy Diagnosis Therapy Diagnosis: Intact Oropharyngeal Swallow Function Precautions Precautions: Fall, Aspiration Precautions/Isolations: Aspiration, Fall Prevention, Standard Precautions Referral Referring Physician: Dr. Centeno Reason for Referral: Evaluation/Treatment Medical History Pertinent Medical History: HTN Current History The patient is an 81 year old male with a past medical history of high chol esterol, HTN, and dementia, who presented to [facility] with complaints of cough and severe weakness. The patient was diagnosed with COVID. Reviewed History: Yes Social History Current Living Status: Spouse Speech PLF/Current-Dysphagia Prior Level of Function The patient is currently NPO. Per patient, he consumes a regular diet with thin liquids at home. The patient denied oropharyngeal swallowing concerns or difficulties. Subjective The patient was seated upright in his recliner, awake and alert upon entrance to his room by the clinician. The patient greeted the clinician appropriately and was agreeable to participation in the clinical bedside swallowing evaluation. Cognitive Status Patient Orientation: Person Oral Motor Skills Dentition: Natural (Sparse.) Ability to Follow Directions: Fair Oral Expression Ability: Moderate Impairment Voice Voice Phonatory-Based Quality: Breathy, Weak Voice Pitch: Normal Voice Loudness: Mildly Soft/Quiet Face Facial Symmetry: Symmetrical Oral-Facial Assessment Oral-Facial Dentition: Normal Labial Seal Description: Weak Smile: Reduced ROM Puff Cheeks: Reduced Strength Lingual Protrusion: Normal Lingual ROM: Normal Lingual Strength: Normal Volitional Dry Swallow: Yes Voluntary Cough: Yes Can Clear Throat Volitionally: Yes Productive Cough: Yes Productive Throat Clear: Yes Dysphagia Evaluation Consistencies Presented: Regular, Thin Liquid, Mechanical Soft, Pureed The patient displayed appropriate retrieval of thin liquid from the teaspoon and straw. Anterior bolus loss and oral holding were not appreciated. Moderately prolonged mastication was appreciated of the solid bolus, therefor, puree (applesauce) was provided (mechanical soft) to aid in bolus formation and posterior transfer. The patient displayed a suspected timely pharyngeal swallow with all consistencies tested. S/s of suspected aspiration were not demonstrated with thin liquids (multiple, large, consecutive straw drinks), puree, mechanical soft or solid consistencies. Dietary Recommendations: Mechanical Soft Liquid Recommendations: Thin Recommendations: - Dysphagia two consistency diet with thin liquids, as tolerated. - Fully upright and alert for PO intake. - Small, single bites and sips. - Monitor for s/s of suspected aspiration with PO intake. If demonstrated, contact speech pathology. As the patient displays a functional oropharyngeal swallow, speech pathology will sign off at this time. If concerns arise, please re-consult speech patho logy. Dysphagia Evaluation Summary The patient displayed an intact oropharyngeal swallow. Increased mastication time was noted with the solid consistency, however, greatly improved with the introduction of a puree (which combined to form a mechanical soft consistency). The patient does not display s/s of suspected aspiration with any consistency tested and the patient's vocal quality remained clear following each swallow. Speech-Plan Treatment Plan Speech Therapy Treatment Plan: Discontinue ST Frequency: 1 time per week Estimated Hrs Per Day: .25 hour per day Rehab Potential: Guarded Pt/Family Agrees to Plan: Yes Safety Risks/Education Teaching Recipient: Patient Teaching Methods: Discussion Response to Teaching: Reinforcement Needed Education Topics Provided: Results, Recommendations, S/s of Suspected Aspiration Time Speech Therapy Time In: 10:15 Speech Therapy Time Out: 10:35 Total Billed Time: 20 Billed Treatment Time 1, DELANO MENDEZ [facility] September 03, 2021 11:30
[2021-09-03 11:44] VITALS: BP 126/59
[2021-09-03 15:45] VITALS: BP 130/66
[2021-09-03 19:53] VITALS: BP 121/59
[2021-09-04] VITALS (7 sets, daily range): BP systolic 100–151; BP diastolic 53–71
[2021-09-04] MEDS: RT-ALBUTEROL HFA 8.5 GM INHALER IH SCH ×3 (05:09→20:52)
[2021-09-04] MEDS: inSUlin ASPART (NovoLOG) 1 UNIT/0.01 ML (CHARGE PER UNIT) SC SCH ×4 (05:39→22:28)
[2021-09-04 05:46] LABS: BASOPHILS % (AUTO) 0 % (0-10); EOSINOPHILS % (AUTO) 0 % (0-10); HEMATOCRIT 35 % (40-54); HEMOGLOBIN 11.4 g/dL (13.3-17.7); LYMPHOCYTES # (AUTO) 1.8 10^3/uL (1.0-4.0); LYMPHOCYTES % (AUTO) 18 % (12-44); MEAN CORPUSCULAR HEMOGLOBIN 32 pg (25-34); MEAN CORPUSCULAR HGB CONC 33 g/dL (32-36); MEAN CORPUSCULAR VOLUME 99 fL (80-99); MEAN PLATELET VOLUME 10.1 fL (9.0-12.2); MONOCYTES # (AUTO) 0.6 10^3/uL (0.0-1.0); MONOCYTES % (AUTO) 6 % (0-12); NEUTROPHILS # (AUTO) 7.8 10^3/uL (1.8-7.8); NEUTROPHILS % (AUTO) 76 % (42-75); PLATELET COUNT 173 10^3/uL (130-400); WHITE BLOOD COUNT 10.2 10^3/uL (4.3-11.0)
[2021-09-04 05:55] LABS: POTASSIUM 3.4 MMOL/L (3.6-5.0)
[2021-09-04 05:56] LABS: CALCIUM 8.5 MG/DL (8.5-10.1)
[2021-09-04 05:57] LABS: TOTAL PROTEIN 5.7 GM/DL (6.4-8.2)
[2021-09-04 05:59] LABS: BILIRUBIN,TOTAL 0.5 MG/DL (0.1-1.0)
[2021-09-04 06:01] LABS: CREATININE SERUM 0.84 MG/DL (0.60-1.30)
--- NOTE | 2021-09-04 06:34 | Progress Note - Hospitalist ---
Subjective HPI/CC On Admission Date Seen by Provider: Sep 04, 2021 Time Seen by Provider: 10:00 CC: Cough with weakness HPI: This is an 81yoWM patient of [facility] who presents to the [facility] ER with complaints of cough and severe weakness. Labs, CXR, UA were all normal so patient was admitted to hospital for observation and supportive care. Patient was vaccinated with Moderna in 2020 and received both booster vaccines. COVID test was taken upon arrival to [place] [id number] and was found to be positive. Patient had been stable and received gentle IVF overnight but this morning was found to have more difficulty breathing and was found to be hypoxic and urinary retention required in/out catheter. Patient was assessed to have infiltrates on CXR this morning and patient was subsequently move to ICU after I had a conversation with his son who had told me after I updated him on the rapid progression of COVID "doesn't sound like he is going to make it" but after I asked for DNR he stated he must call his sister and after that phone call with his sister he called ARLEN Fagan back and told her he remained a full code and wanted aggressive treatment although he has baseline dementia and appears to be very declined and rapidly decompensating. Subjective/Events-last exam Pt is doing a lot better Generalized weakness Will discontinue IV antibiotics, IV steroids, and IV fluids PT and OT are working with him He seems to be a little bit irritated at times Out of isolation tomorrow Review of Systems General: Fatigue, Malaise Neurological: Confusion Focused Exam Lactate Level Objective Exam Vital Signs Vital Signs Date Time Temp Pulse Resp B/P (MAP) Pulse Ox O2 Delivery O2 Flow Rate FiO2 09/05/21 04:01 36.7 53 20 130/64 (86) 91 Room Air 09/04/21 08:37 21 09/02/21 15:16 1.00 Capillary Refill : Less Than 3 Seconds General Appearance: No Apparent Distress, WD/WN, Chronically ill Respiratory: Lungs Clear, Normal Breath Sounds Cardiovascular: Regular Rate, Rhythm Neurologic/Psychiatric: Alert, Oriented x3, Disoriented Results/Procedures Lab Laboratory Tests 09/05/21 05:47 Patient resulted labs reviewed. Assessment/Plan Assessment and Plan Assess & Plan/Chief Complaint Assessment: Acute hypoxic respiratory failure COVID 19 PNA Acute dysphagia aspiration risk placed NPO h/o PNA Severe weakness Dementia Severe debility acute on chronic Plan: IV abx IV steroids O2 ICU transfer Prognosis guarded 09/02: Moving to 4th floor Improved overall Prognosis guarded 09/03/21: Supportive care PT and OT DC catheter 09/04/2021: Supportive care PT and OT DC isolation tomorrow Critical Care Critically Ill Patient Diagnosis/Problems Diagnosis/Problems (1) COVID-19 (2) Acute and chronic respiratory failure with hypoxia (3) Dementia (4) Hypertension (5) Dysphagia (6) At risk for aspiration JULIAN ANDERSON DO Sep 04, 2021 06:34
[2021-09-04] MEDS: DOCUSATE SODIUM 100 MG (COLACE) CAP PO SCH ×2 (07:55→22:27)
[2021-09-04] MEDS: SENNA W/DOCUSATE (SENOKOT S) TABLET PO SCH ×2 (07:55→22:27)
[2021-09-04] MEDS: ENOXAPARIN 40 MG/0.4 ML (LOVENOX) SYR SC SCH (08:45)
[2021-09-04] MEDS: CEFEPIME INJECTION 1,000 MG in NS (IVPB) 50 ML IV SCH (08:45)
[2021-09-04] MEDS ORDERED: dexAMETHasone 6 MG TAB (DECADRON) PO SCH (09:00)
[2021-09-04] MEDS ORDERED: AZITHROMYCIN 250 MG TAB (ZITHROMAX) PO SCH (09:00)
--- NOTE | 2021-09-04 09:13 | Physical Therapy Daily Note ---
PT Daily Note-Current Subjective Patient in bed pre tx, agrees to PT, has no gown on, max assist to put gown on. Appearance Patient in bed post tx with nurse call, phone, tray, bed alarm on. Mental Status Patient Orientation: Person, Confused Attachments: IV Transfers SCALE: Activities may be completed with or without assistive devices. 2-Kjijeqdzgq-biggxjj completes the activity by him/herself with no assistance from a helper. 5-Set-up or Clean-up Assistance-helper sets up or cleans up; patient completes activity. [place] assists only prior to or following the activity. 4-Supervision or Touching Assistance-helper provides verbal cues and/or touching/steadying and/or contact guard assistance as patient completes activity. Assistance may be provided throughout the activity or intermittently. 3-Partial/Moderate Assistance-helper does LESS THAN HALF the effort. [place] lifts, holds or supports trunk or limbs, but provides less than half the effort. 2-Substantial/Maximal Assistance-helper does MORE THAN HALF the effort. [place] lifts or holds trunk or limbs and provides more than half the effort. 4-Cgjyotcks-dqoihu does ALL the effort. Patient does none of the effort to complete the activity. Or, the assistance of 2 or more helpers is required for the patient to complete the activity. If activity was not attempted, code reason: 7-Patient Refused. 9-Not Applicable-not attempted and the patient did not perform the activity before the current illness, exacerbation or injury. 10-Not Attempted due to Environmental Limitations-(lack of equipment, weather restraints, etc.). 88-Not Attempted due to Medical Conditions or Safety Concerns. Roll Left & Right (QC): 4 Sit to Lying (QC): 3 Lying to Sitting/Side of Bed(Q: 3 Sit to Stand (QC): 4 Chair/Iti-vx-Sdati Xfer(QC): 4 Gait Training Distance: 10'x2 Walk 10 feet (QC): 4 Gait Persons Needed: 1 Gait Assistive Device: None Patient is confused and impulsive, has poor safety awareness, seems to be unaware of his IV. Patient sits to the side of the bed and then immediately stands and says he has to go pee and violently pushes the walker out of the way, refuses to comply with proper safety, therapist guards patient as he ambulates into the restroom and goes pee. When done patient asks what to do now and therapists suggests to ambulate in his room patient agrees, refuses to use walker and then proceeds to wander about his room, unsteady, trying to get into small wedged in places in his room, seemingly getting more agitated by the second. He is immediately guided back to his bed and he lays down with assist. Treatments bed mobility and transfers, ambulation Assessment Current Status: Poor Progress Patient is too confused and agitated and uncooperative to really do any ambulation or transfers in a safe manner. PT Chcf Goals Chcf Goals PT Loan Operations Specialist Goals Time Frame: Sep 10, 2021 Roll Left & Right (QC): 6 Sit to Lying (QC): 6 Lying-Sitting on Side/Bed(QC): 6 Sit to Stand (QC): 4 (SBA) Chair/Lkr-mx-Hrveu Xfer(QC): 4 (SBA) Walk 10 feet (QC): 4 (SBA) Walk 50ft with 2 Turns (QC): 4 (SBA) Walk 150 ft (QC): 4 (SBA) PT Plan Problem List Problem List: Activity Tolerance, Functional Strength, Safety, Balance, Gait, Transfer, Bed Mobility, ROM Treatment/Plan Treatment Plan: Continue Plan of Care Treatment Plan: Bed Mobility, Education, Functional Activity Taryn, Functional Strength, Gait, Safety, Therapeutic Exercise, Transfers Treatment Duration: Sep 10, 2021 Frequency: 6 times per week Estimated Hrs Per Day: .25 hour per day Patient and/or Family Agrees t: Yes Safety Risks/Education Patient Education: Gait Training, Transfer Techniques, Correct Positioning, Safety Issues Teaching Recipient: Patient Teaching Methods: Demonstration, Discussion Response to Teaching: Reinforcement Needed Time/GCodes Time In: 0838 Time Out: 0856 Total Billed Treatment Time: 18 Total Billed Treatment 1 visit FA 18' JORGE PATEL PT Sep 04, 2021 09:13
--- NOTE | 2021-09-04 13:17 | Occupational Ther Daily Note ---
OT Current Status-Daily Note Subjective Pt alert, lying in bed. Pt agrees to therapy. No c/o pain. Mental Status/Objective Patient Orientation: Person Attachments: IV ADL-Treatment Pt was set up for eating. Uses regular utensils to eat. Pt states that he is not able to see his food and uses L hand to assist with finding food then scoops with R hand. BELL is assisting to set up meal and asks if pt wants salt, pepper or butter on meal. Pt states "No, God damn it", to each question. Pt states that he can't see anything and doesn't know where his glasses are. EBLL found pt's glasses on his tray and gave to pt to put on. BELL explained to pt that I was just trying to assist pt. Pt stated "I can't see anything." BELL explained that offering the salt, pepper and butter was a way to assist pt find items on his tray. Pt able to eat food on tray by self after set up. After session, pt lying in bed with call light/phone in reach. All needs met in room. Therapy Code Descriptions/Definitions Functional [place] Measure: 0=Not Assessed/NA 4=Minimal Assistance 1=Total Assistance 5=Supervision or Setup 2=Maximal Assistance 6=Modified [place] 3=Moderate Assistance 7=Complete IndependenceSCALE: Activities may be completed with or without assistive devices. 9-Ioqgkoxuti-qhwdqrm completes the activity by him/herself with no assistance from a helper. 5-Set-up or Clean-up Assistance-helper sets up or cleans up; patient completes activity. Kinsman assists only prior to or following the activity. 4-Supervision or Touching Assistance-helper provides verbal cues and/or touching/steadying and/or contact guard assistance as patient completes activity. Assistance may be provided throughout the activity or intermittently. 3-Partial/Moderate Assistance-helper does LESS THAN HALF the effort. Kinsman lift s, holds or supports trunk or limbs, but provides less than half the effort. 2-Substantial/Maximal Assistance-helper does MORE THAN HALF the effort. Kinsman lifts or holds trunk or limbs and provides more than half the effort. 7-Oxiunhmmt-gkmipb does ALL the effort. Patient does none of the effort to complete the activity. Or, the assistance of 2 or more helpers is required for the patient to complete the activity. If activity was not attempted, code reason: 7-Patient Refused. 9-Not Applicable-not attempted and the patient did not perform the activity before the current illness, exacerbation or injury. 10-Not Attempted due to Environmental Limitations-(lack of equipment, weather restraints, etc.). 88-Not Attempted due to Medical Conditions or Safety Concerns. Eating (QC): 5 OT Manager Case Management Goals Manager Case Management Goals Time Frame: Sep 13, 2021 Eating (QC): 6 Oral Hygiene (QC): 6 Toileting Hygiene (QC): 4 Shower/Bathe Self (QC): 4 Upper Body Dressing (QC): 5 Lower Body Dressing (QC): 4 On/Off Footwear (QC): 4 Additional Goals: 1-Demonstrate ADL Tasks, 2-Verbalize Understanding, 3- ImproveStrength/Taryn 1=Demonstrate adherence to instructed precautions during ADL tasks. 2=Patient will verbalize/demonstrate understanding of assistive devices/modifications for ADL. 3=Patient will improve strength/tolerance for activity to enable patient to perform ADL's. OT Education/Plan Problem List/Assessment Assessment: Decreased Activ Tolerance, Decreased Safety Aware, Impaired Cognition, Impaired Self-Care Skills Discharge Recommendations Plan/Recommendations: Continue POC Treatment Plan/Plan of Care Patient would benefit from OT for education, treatment and training to promote independence in ADL's, mobility, safety and/or upper extremity function for ADL's. Plan of Care: ADL Retraining, Functional Mobility, UE Funct Exercise/Act Treatment Duration: Sep 13, 2021 Frequency: 3 times per week (3-5 times per week) Estimated Hrs Per Day: .25 hour per day Agreement: Yes Rehab Potential: Guarded Time/GCodes Start Time: 12:50 Stop Time: 13:06 Total Time Billed (hr/min): 16 Billed Treatment Time 1 visit-ADL 1 (16 min) ASHLYN DUBOSE Sep 04, 2021 13:17
[2021-09-04] MEDS ORDERED: CALCIUM CARBONATE 500 MG (TUMS) TAB.CHEW PO PRN (18:30)
[2021-09-05] VITALS: BP 117/57
[2021-09-05 04:01] VITALS: BP 130/64
[2021-09-05 05:55] LABS: BASOPHILS % (AUTO) 0 % (0-10); EOSINOPHILS # (AUTO) 0.4 10^3/uL (0.0-0.3); EOSINOPHILS % (AUTO) 5 % (0-10); HEMATOCRIT 34 % (40-54); HEMOGLOBIN 11.8 g/dL (13.3-17.7); LYMPHOCYTES # (AUTO) 1.8 10^3/uL (1.0-4.0); LYMPHOCYTES % (AUTO) 23 % (12-44); MEAN CORPUSCULAR HEMOGLOBIN 32 pg (25-34); MEAN CORPUSCULAR HGB CONC 34 g/dL (32-36); MEAN CORPUSCULAR VOLUME 95 fL (80-99); MONOCYTES # (AUTO) 0.6 10^3/uL (0.0-1.0); MONOCYTES % (AUTO) 8 % (0-12); NEUTROPHILS # (AUTO) 4.8 10^3/uL (1.8-7.8); NEUTROPHILS % (AUTO) 63 % (42-75); PLATELET COUNT 199 10^3/uL (130-400); WHITE BLOOD COUNT 7.6 10^3/uL (4.3-11.0)
[2021-09-05 06:04] LABS: POTASSIUM 3.5 MMOL/L (3.6-5.0)
[2021-09-05 06:05] LABS: CALCIUM 8.3 MG/DL (8.5-10.1)
[2021-09-05 06:06] LABS: TOTAL PROTEIN 5.8 GM/DL (6.4-8.2)
[2021-09-05 06:08] LABS: BILIRUBIN,TOTAL 0.7 MG/DL (0.1-1.0)
[2021-09-05 06:10] LABS: CREATININE SERUM 0.82 MG/DL (0.60-1.30)
[2021-09-05 06:13] LABS: MAGNESIUM 1.8 MG/DL (1.6-2.4)
--- NOTE | 2021-09-05 06:33 | Progress Note - Hospitalist ---
Subjective HPI/CC On Admission Date Seen by Provider: Sep 05, 2021 Time Seen by Provider: 11:30 CC: Cough with weakness HPI: This is an 81yoWM patient of [facility] who presents to the [facility] ER with complaints of cough and severe weakness. Labs, CXR, UA were all normal so patient was admitted to hospital for observation and supportive care. Patient was vaccinated with Moderna in 2020 and received both booster vaccines. COVID test was taken upon arrival to [place] [address] and was found to be positive. Patient had been stable and received gentle IVF overnight but this morning was found to have more difficulty breathing and was found to be hypoxic and urinary retention required in/out catheter. Patient was assessed to have infiltrates on CXR this morning and patient was subsequently move to ICU after I had a conversation with his son who had told me after I updated him on the rapid progression of COVID "doesn't sound like he is going to make it" but after I asked for DNR he stated he must call his sister and after that phone call with his sister he called ARLEN Fagan back and told her he remained a full code and wanted aggressive treatment although he has baseline dementia and appears to be very declined and rapidly decompensating. Objective Exam Vital Signs Vital Signs Date Time Temp Pulse Resp B/P (MAP) Pulse Ox O2 Delivery O2 Flow Rate FiO2 09/05/21 11:15 36.4 55 20 130/61 (84) 94 Room Air 09/04/21 08:37 21 09/02/21 15:16 1.00 Capillary Refill : Less Than 3 Seconds Results/Procedures Lab Laboratory Tests 09/05/21 05:47 Patient resulted labs reviewed. Assessment/Plan Assessment and Plan Assess & Plan/Chief Complaint Assessment: Acute hypoxic respiratory failure COVID 19 PNA Acute dysphagia aspiration risk placed NPO h/o PNA Severe weakness Dementia Severe debility acute on chronic Plan: IV abx IV steroids O2 ICU transfer Prognosis guarded 09/02: Moving to 4th floor Improved overall Prognosis guarded 09/03/21: Supportive care PT and OT DC catheter 09/04/2021: Supportive care PT and OT DC isolation tomorrow Critical Care Critically Ill Patient Diagnosis/Problems Diagnosis/Problems (1) COVID-19 (2) Acute and chronic respiratory failure with hypoxia (3) Dementia (4) Hypertension (5) Dysphagia (6) At risk for aspiration JULIAN ANDERSON DO Sep 05, 2021 06:33
[2021-09-05] MEDS: inSUlin ASPART (NovoLOG) 1 UNIT/0.01 ML (CHARGE PER UNIT) SC SCH ×2 (06:37→10:34)
[2021-09-05 07:04] VITALS: BP 124/62
[2021-09-05] MEDS: RT-ALBUTEROL HFA 8.5 GM INHALER IH SCH (08:20)
[2021-09-05] MEDS: DOCUSATE SODIUM 100 MG (COLACE) CAP PO SCH (08:58)
[2021-09-05] MEDS: SENNA W/DOCUSATE (SENOKOT S) TABLET PO SCH (08:58)
[2021-09-05] MEDS: ENOXAPARIN 40 MG/0.4 ML (LOVENOX) SYR SC SCH (08:58)
[2021-09-05 11:15] VITALS: BP 130/61
--- NOTE | 2021-09-05 11:34 | Discharge Summary ---
Discharge Summary Hospital Course Was the Problem List Reviewed?: Yes Problems/Dx: (1) COVID-19 (2) Acute and chronic respiratory failure with hypoxia (3) Dementia (4) Hypertension (5) Dysphagia (6) At risk for aspiration Hospital Course Date of Admission: September 01, 2021 at 15:38 Admission Diagnosis : Family Physician/Provider: Zurdo Nair MD Date of Discharge: 09/05/21 Discharge Diagnosis: COVID-19 pneumonia, hypoxia, dementia Hospital Course: Pt had an uneventful 5 day hospital course after he was admitted for Covid-19 pneumonia with respiratory distress. He required ICU for one day and ultimately recovered quickly. Pt finished antibiotics and steroids. PT and OT consulted. Pt was back to baseline. He was deemed stable for discharge. Labs and Pending Lab Test: Laboratory Tests 09/04/21 15:12: Glucometer 118H 09/04/21 20:06: Glucometer 100 09/05/21 05:47: White Blood Count 7.6, Red Blood Count 3.64L, Hemoglobin 11.8L, Hematocrit 34L, Mean Corpuscular Volume 95, Mean Corpuscular Hemoglobin 32, Mean Corpuscular Hemoglobin Concent 34, Red Cell Distribution Width 12.2, Platelet Count 199, Mean Platelet Volume 10.0, Immature Granulocyte % (Auto) 1, Neutrophils (%) (Auto) 63, Lymphocytes (%) (Auto) 23, Monocytes (%) (Auto) 8, Eosinophils (%) (Auto) 5, Basophils (%) (Auto) 0, Neutrophils # (Auto) 4.8, Lymphocytes # (Auto) 1.8, Monocytes # (Auto) 0.6, Eosinophils # (Auto) 0.4H, Basophils # (Auto) 0.0, Immature Granulocyte # (Auto) 0.1, Sodium Level 141, Potassium Level 3.5L, Chloride Level 107, Carbon Dioxide Level 20L, Anion Gap 14, Blood Urea Nitrogen 20H, Creatinine 0.82, Estimat Glomerular Filtration Rate 87, BUN/Creatinine Ratio 24, Glucose Level 103, Calcium Level 8.3L, Corrected Calcium 9.1, Magnesium Level 1.8, Total Bilirubin 0.7, Aspartate Amino Transf (AST/SGOT) 41H, Alanine Aminotransferase (ALT/SGPT) 25, Alkaline Phosphatase 52, Total Protein 5.8L, Albumin 3.0L 09/05/21 05:59: Glucometer 91 09/05/21 10:10: Glucometer 135H Microbiology 09/01/21 Blood Culture - Preliminary, Resulted No growth 08/31/21 Urine Culture - Final, Complete NO GROWTH Home Meds Active Levofloxacin 750 Mg Tablet 750 Mg PO DAILY@11 Reported Donepezil HCl 10 Mg Tablet 10 Mg PO HS Ocuvite Eye + Multi Tablet (Mv-Mn/FA/Vit K/Lycop/Lut/Zeaxa) 1 Each Tablet 1 Each PO DAILY Metformin HCl 500 Mg Tablet 500 Mg PO HS Flomax (Tamsulosin HCl) 0.4 Mg Cap 0.4 Mg PO HS [Prevagen] 10 Mg PO DAILY Preservision Areds Tablet (Vit A/Vit C/Vit E/Zinc/Copper) 1 Each Tablet 1 Each PO DAILY Metformin HCl 500 Mg Tablet 1,000 Mg PO DAILY TAKES 2 500MG TABLETS Glucosamine (Glucosamine Sulfate 2Kcl) 1,000 Mg Tablet 1,000 Mg PO DAILY Gemfibrozil 600 Mg Tablet 600 Mg PO BID Ezetimibe 10 Mg Tablet 10 Mg PO ONCE Assessment/Pt Instructions PCP in 1 week Discharge Planning: <30 minutes discharge planning Discharge Instructions Discharge Diet: No Restrictions Activity as Tolerated: Yes Discharge Physical Examination Vital Signs Vital Signs Date Time Temp Pulse Resp B/P (MAP) Pulse Ox O2 Delivery O2 Flow Rate FiO2 09/05/21 11:15 36.4 55 20 130/61 (84) 94 Room Air 09/04/21 08:37 21 09/02/21 15:16 1.00 General Appearance: No Apparent Distress, WD/WN, Chronically ill Allergies: Coded Allergies: [id number] Reductase Inhibitor (Verified Allergy, Unknown, 03/02/21) atorvastatin (Verified Allergy, Unknown, 03/02/21) clopidogrel (Verified Allergy, Unknown, 03/02/21) erythromycin base (Verified Allergy, Unknown, 03/02/21) meclizine (Verified Allergy, Unknown, 03/02/21) Discharge Summary Date of Admission September 01, 2021 at 15:38 Date of Discharge Discharge Date: Sep 05, 2021 Admission Diagnosis Assessment: Acute hypoxic respiratory failure COVID 19 PNA Acute dysphagia aspiration risk placed NPO h/o PNA Severe weakness Dementia Severe debility acute on chronic Plan: IV abx IV steroids O2 ICU transfer Prognosis guarded Discharge Diagnosis Assessment: Acute hypoxic respiratory failure COVID 19 PNA Acute dysphagia aspiration risk placed NPO h/o PNA Severe weakness Dementia Severe debility acute on chronic Plan: IV abx IV steroids O2 ICU transfer Prognosis guarded 09/02: Moving to 4th floor Improved overall Prognosis guarded 09/03/21: Supportive care PT and OT DC catheter 09/04/2021: Supportive care PT and OT DC isolation tomorrow (1) COVID-19 (2) Acute and chronic respiratory failure with hypoxia (3) Dementia (4) Hypertension (5) Dysphagia (6) At risk for aspiration JULIAN ANDERSON DO Sep 05, 2021 11:34
--- NOTE | 2021-09-05 12:25 | D/C HH Face to Face Order ---
D/C HH Face to Face Orders Reconcile Patient Problems Problems Reviewed?: Yes Instructions for Patient HH Patient Instructions/FollowUp: PCP 1 week Physician to follow Patient: PCP Discharge Diet for Home: No Restrictions Patient Problems: COVID Patient Data-Allergies,Ht & Wt Patient Allergies: Coded Allergies: [id number]-[id number] Reductase Inhibitor (Verified Allergy, Unknown, 03/02/21) atorvastatin (Verified Allergy, Unknown, 03/02/21) clopidogrel (Verified Allergy, Unknown, 03/02/21) erythromycin base (Verified Allergy, Unknown, 03/02/21) meclizine (Verified Allergy, Unknown, 03/02/21) Home Health Need/Face to Face Date of Face to Face: Sep 05, 2021 Clinical Findings: Generalized weakness and fatigue, Muscle weakness I have seen Pt [id number]: Yes Discharged To: Home Diagnosis/Conditions: Covid Patient is Homebound due to: CognItive deficits, Muscle weakness Homebound Status Due to the above stated illness, injury or surgical procedure (medical condition or diagnosis) and associated clinical findings, the patient is homebound because of his/her inability to leave home except with aid of a supportive device and/or person AND leaving the home requires a considerable and taxing effort or is medically contraindicated. Pt req the following assistanc: [facility] Nursing Orders Home Health Services Order: Nursing Services, No Experience-Evaluate & Treat, Physical Therapy-Evaluate & Treat Home Health Infusion Therapy Line Start Date: August 31, 2021 Certify Stmt I certify that this patient is under my care and that I, a nurse practitioner or a physician; a melter assistant working with me, had a face to face encounter that -ca ets the physician face to face encounter requirements with this patient as dated. JULIAN ANDERSON DO Sep 05, 2021 12:25
[2021-09-05 16:08] VITALS: BP 130/61
== END 2021-09-05 16:12 | disposition home or self-care (01) | DRG 177 ==
LOC: EDUNIT# 16:55 → ER FS 16:56 → 4TH 21:10 → ICU 09-01 14:15 → OBSVTOIN 09-01 15:38 → 4TH 09-02 14:00
PROVIDERS: ADMIT Internal Medicine; ATTEND Internal Medicine
PROC: 8E0ZXY6 Isolation (ICD-10-PCS; principal; 2021-08-31)
DX: U07.1 COVID-19 (principal); J12.82 Pneumonia due to coronavirus disease 2019; J96.21 Acute and chronic respiratory failure with hypoxia; R13.10 Dysphagia, unspecified; R33.9 Retention of urine, unspecified; I12.9 Hypertensive chronic kidney disease with stage 1 through stage 4 chronic kidney disease, or unspecified chronic kidney disease; E13.22 Other specified diabetes mellitus with diabetic chronic kidney disease; N18.30 Chronic kidney disease, stage 3 unspecified; Z79.84 Long term (current) use of oral hypoglycemic drugs; E78.5 Hyperlipidemia, unspecified; E78.00 Pure hypercholesterolemia, unspecified; H35.30 Unspecified macular degeneration; F03.90 Unspecified dementia, unspecified severity, without behavioral disturbance, psychotic disturbance, mood disturbance, and anxiety; H91.90 Unspecified hearing loss, unspecified ear; Z87.891 Personal history of nicotine dependence; Z88.1 Allergy status to other antibiotic agents; Z88.8 Allergy status to other drugs, medicaments and biological substances
CPT/HCPCS: 36415; 36600; 51701; 71045; 80053; 81000; 82805; 82947; 83605; 83735; 83880; 84100; 84484; 85007; 85025; 85027; 85379; 85610; 85730; 87040; 87088; 87636; 93005; 94640; 94760; G0378

== ENCOUNTER 2022-08-16 14:27 | Observation (INO) | payer BC, MEDICARE ==
[~2022-08-16] VITALS: Ht 175.3 cm; Wt 81.0 kg
[~2022-08-16 14:27] MED LIST changes: +DONE10TA41 PO; +LEVO750T PO; -LEVO750T39 PO
--- NOTE | 2022-08-16 14:46 | ED General ---
General Stated Complaint: WEAKNESS | LETHARGY History of Present Illness Date Seen by Provider: August 16, 2022 Time Seen by Provider: 14:35 Initial Comments 82 yr M with PMH of worsening Alzheimer's dementia, is brought in byhis son with complaints of generalized weakness which the son noticed yesterday. Pt is AOx1 which is his baseline as per pt's son. Pt lives with his son. Pt is able to walk slowly on his own at baseline, but today he has been lethargic and was too tired to get out of his chair. Pt is unable to provide a history and responds to all questions but mainly to say he doesn't know, and keeps repeating his questions due to memory loss. Son also reports that his father has been having clear nasal drainage and cough since yesterday too. Denies fever and chills, chest pain, palpitations, SOB, sore throat, dizziness, paralysis, sensory loss. Allergies and Home Medications Allergies Coded Allergies: Xjgxxpd-KFQ-XsZ Reductase Inhibitor (Verified Allergy, Unknown, 03/02/21) atorvastatin (Verified Allergy, Unknown, 03/02/21) clopidogrel (Verified Allergy, Unknown, 03/02/21) erythromycin base (Verified Allergy, Unknown, 03/02/21) meclizine (Verified Allergy, Unknown, 03/02/21) Patient Home Medication List Home Medication List Reviewed: Yes Donepezil HCl (Donepezil HCl) 10 Mg Tablet, 10 MG PO HS, (Reported) Entered as Reported by: JACOBO MCDONALD on 08/31/21 2243 Ezetimibe (Ezetimibe) 10 Mg Tablet, 10 MG PO ONCE, (Reported) Entered as Reported by: RAZIA MCINTOSH on 03/02/21 170 Gemfibrozil (Gemfibrozil) 600 Mg Tablet, 600 MG PO BID, (Reported) Entered as Reported by: RAZIA MCINTOSH on 03/02/211712 Glucosamine Sulfate 2Kcl (Glucosamine) 1,000 Mg Tablet, 1,000 MG PO DAILY, (Reported) Entered as Reported by: RAZIA MCINTOSH on 03/02/211712 Metformin HCl (Metformin HCl) 500 Mg Tablet, 1,000 MG PO DAILY, (Reported) Entered as Reported by: RAZIA MCINTOSH on 03/02/211712 Metformin HCl (Metformin HCl) 500 Mg Tablet, 500 MG PO HS, (Reported) Entered as Reported by: RADHA SHAH on 03/04/21 0849 Mv-Mn/FA/Vit K/Lycop/Lut/Zeaxa (Ocuvite Eye + Multi Tablet) 1 Each Tablet, 1 EACH PO DAILY, (Reported) Entered as Reported by: RADHA HSAH on 03/04/21 0851 Tamsulosin HCl (Flomax) 0.4 Mg Cap, 0.4 MG PO HS, (Reported) Entered as Reported by: RAZIA MCINTOSH on 03/02/211712 Vit A/Vit C/Vit E/Zinc/Copper (Preservision Areds Tablet) 1 Each Tablet, 1 EACH PO DAILY, (Reported) Entered as Reported by: RAZIA MCINTOSH on 03/02/211712 [Prevagen] , 10 MG PO DAILY, (Reported) Entered as Reported by: RAZIA MCINTSOH on 03/02/211712 Review of Systems Review of Systems Constitutional: malaise EENTM: nose congestion Respiratory: cough Cardiovascular: no symptoms reported Gastrointestinal: no symptoms reported Genitourinary: no symptoms reported Musculoskeletal: no symptoms reported Skin: no symptoms reported Psychiatric/Neurological: No Symptoms Reported Hematologic/Lymphatic: No Symptoms Reported Immunological/Allergic: no symptoms reported Past Tlxqttp-Xsvqxa-Kyyavm Hx Immunizations Up To Date First/Initial COVID19 Vaccinat: May 2020 Second COVID19 Vaccination Sabino: June 2020 Past Medical History Surgery/Hospitalization HX: anemia, encephalopathy, CKD High Cholesterol, Hypertension Dementia Physical Exam Vital Signs Vital Signs - First Documented 08/16/22 14:32 Temp 36.9 Pulse 79 Resp 16 B/P (MAP) 131/79 (96) Pulse Ox 94 O2 Delivery Room Air Capillary Refill : Height, Weight, BMI Height: '" Weight: lbs. oz. 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 Patient able to follow commands.) Skin: Normal Color, Pallor, Other (Dry mucous membranes and tenting of skin present. Patient also has dry eczematous flaky patches on his extremities and trunk) Focused Exam Lactate Level 08/16/22 15:00: Lactic Acid Level 2.79*H Lactic Acid Level Laboratory Tests Test 08/16/22 15:00 Lactic Acid Level 2.79 MMOL/L (0.50-2.00) *H Progress/Results/Core Measures Suspected Sepsis SIRS Temperature: Pulse: Respiratory Rate: Laboratory Tests 08/16/22 15:00: White Blood Count 11.7H Blood Pressure / Mean: 08/16/22 15:00: Lactic Acid Level 2.79*H Laboratory Tests 08/16/22 15:00: Creatinine 1.45H, Platelet Count 248, Total Bilirubin 0.8 Results/Orders Lab Results Laboratory Tests Test 08/16/22 15:00 08/16/22 15:05 08/16/22 15:22 Range/Units White Blood Count 11.7 H 4.3-11.0 10^3/uL Red Blood Count 3.99 L 4.30-5.52 10^6/uL Hemoglobin 12.4 L 13.3-17.7 g/dL Hematocrit 38 L 40-54 % Mean Corpuscular Volume 96 80-99 fL Mean Corpuscular Hemoglobin 31 25-34 pg Mean Corpuscular Hemoglobin Concent 33 32-36 g/dL Red Cell Distribution Width 13.4 10.0-14.5 % Platelet Count 248 130-400 10^3/uL Mean Platelet Volume 9.0 9.0-12.2 fL Immature Granulocyte % (Auto) 0 % Neutrophils (%) (Auto) 62 42-75 % Lymphocytes (%) (Auto) 19 12-44 % Monocytes (%) (Auto) 9 0-12 % Eosinophils (%) (Auto) 9 0-10 % Basophils (%) (Auto) 1 0-10 % Neutrophils # (Auto) 7.2 1.8-7.8 10^3/uL Lymphocytes # (Auto) 2.2 1.0-4.0 10^3/uL Monocytes # (Auto) 1.1 H 0.0-1.0 10^3/uL Eosinophils # (Auto) 1.1 H 0.0-0.3 10^3/uL Basophils # (Auto) 0.1 0.0-0.1 10^3/uL Immature Granulocyte # (Auto) 0.0 0.0-0.1 10^3/uL Neutrophils % (Manual) % Sodium Level 140 135-145 MMOL/L Potassium Level 2.6 L 3.6-5.0 MMOL/L Chloride Level 94 L 98-107 MMOL/L Carbon Dioxide Level 31 21-32 MMOL/L Anion Gap 15 H 5-14 MMOL/L Blood Urea Nitrogen 15 7-18 MG/DL Creatinine 1.45 H 0.60-1.30 MG/DL Estimat Glomerular Filtration Rate 48 BUN/Creatinine Ratio 10 Glucose Level 150 H 70-105 MG/DL Lactic Acid Level 2.79 *H 0.50-2.00 MMOL/L Calcium Level 8.4 L 8.5-10.1 MG/DL Corrected Calcium 9.0 8.5-10.1 MG/DL Magnesium Level 1.6 1.6-2.4 MG/DL Total Bilirubin 0.8 0.1-1.0 MG/DL Aspartate Amino Transf (AST/SGOT) 13 5-34 U/L Alanine Aminotransferase (ALT/SGPT) 5 0-55 U/L Alkaline Phosphatase 82 40-136 U/L Troponin I < 0.30 <0.30 NG/ML Pro-B-Type Natriuretic Peptide 169.3 <450.0 PG/ML Total Protein 6.4 6.4-8.2 GM/DL Albumin 3.2 3.2-4.5 GM/DL Influenza Type A (RT-PCR) Not Detected Not Detecte Influenza Type B (RT-PCR) Not Detected Not Detecte SARS-CoV-2 RNA (RT-PCR) Not Detected Not Detecte Urine Color YELLOW Urine Clarity CLEAR Urine pH 6.0 5-9 Urine Specific [place]le 1.015 L 1.016-1.022 Urine Protein NEGATIVE NEGATIVE Urine Glucose (UA) NEGATIVE NEGATIVE Urine Ketones NEGATIVE NEGATIVE Urine Nitrite NEGATIVE NEGATIVE Urine Bilirubin NEGATIVE NEGATIVE Urine Urobilinogen 1.0 < = 1.0 MG/DL Urine Leukocyte Esterase NEGATIVE NEGATIVE Urine RBC (Auto) NEGATIVE NEGATIVE Urine RBC 2-5 H /HPF Urine WBC 0-2 /HPF Urine Squamous Epithelial Cells 5-10 /HPF Urine Crystals PRESENT H /LPF Urine Calcium Oxalate Crystals FEW H /LPF Urine Bacteria TRACE /HPF Urine Casts PRESENT /LPF Urine Hyaline Casts 2-5 H /LPF Urine Coarse Granular Casts 0-2 H /LPF Urine Mucus LARGE H /LPF Urine Culture Indicated NO My Orders Orders - TRACI MARTINS MD Cbc With Automated Diff (08/16/22 14:46) Comprehensive Metabolic Panel (08/16/22 14:46) Lactic Acid Analyzer (08/16/22 14:46) Magnesium (08/16/22 14:46) Ua Culture If Indicated (08/16/22 14:46) Troponin I Fs (08/16/22 14:46) Chest 1 View Ap/Pa Only (08/16/22 14:49) Influenza A And B By Pcr (08/16/22 14:58) Covid 19 Inhouse Test (08/16/22 14:58) Manual Differential (08/16/22 15:00) Furosemide Injection (Lasix Injection) (08/16/22 15:30) Ekg Tracing (08/16/22 15:26) Continuous Ekg Monitoring (08/16/22 15:26) Probnp Fs (08/16/22 15:28) Straight Cath (Urinary) (08/16/22 15:32) Blood Culture (08/16/22 15:37) Cefepime Injection (Maxipime Injection) (08/16/22 15:45) Ed Iv/Invasive Line Start (08/16/22 15:40) Ns Iv 1000 Ml (Sodium Chloride 0.9%) (08/16/22 15:40) Potassium Cl 10meq/50ml Ivpb (Kcl 10 Meq (08/16/22 15:46) Potassium Chloride (Tablet) (K Dur Table (08/16/22 16:00) Medications Given in ED Current Medications Medications Dose Ordered Sig/Candelario Route Start Time Stop Time Status Last Admin Dose Admin Cefepime HCl 1000 mg/Sodium Chloride 50 ml @ 100 mls/hr ONCE ONCE IV 08/16/22 15:45 08/16/22 16:14 DC 08/16/22 16:05 100 MLS/HR Furosemide 40 mg ONCE ONCE IVP 08/16/22 15:30 08/16/22 15:35 DC 08/16/22 16:05 40 MG Vital Signs/I&O 08/16/22 14:32 Temp 36.9 Pulse 79 Resp 16 B/P (MAP) 131/79 (96) Pulse Ox 94 O2 Delivery Room Air Capillary Refill : Progress Note : Progress Note 1. GENERALIZED WEAKNESS/ ACUTE DEHYDRATION: - CXR: see report, no pneumonia - UA: no infection - CBC: WBC is borderline elevated without a left shift: 11.7 - BNP: - Troponin:undetectable - EKG: non-ischemic - Creatinine is 1.45 - Lactic acid is elevated: 2.79. Hold Metformin - Pt is dehydrated with elevated creatinine and lactic acid, and tenting of skin and dry mucous membranes on clinical exam. Vitlas have been stable andpt is afebrile. Upon first lab report of elevated lactic acid, gave pt one dose of Cefepime, but pt is not septic - NS IVF 250/hr started in ER -Discussed with hospitalist and will admit to observation unit for IV fluids and potassium 2. HYPOKALEMIA: - CMP: s. K is 2.6 - iv potassium 20mEq & oral potassium 40mEq given in ER 3. MILD PULMONARY EDEMA: - CXR shows mild central edema, see report - Lasix 40mg iv STAT - Vitals stable and O2 sat stable on room air Diagnostic Imaging Diagonstic Imaging: Xray Plain Films/CT/US/NM/MRI: chest Comments [facility]. [place], [place] NAME: T[facility]I [facility] REC#: [id number] PT STATUS: REG ER : 1940 PHYSICIAN: TRACI MARTINS MD ADMIT DATE: 08/16/22/ER FS Draft Date of Exam:08/16/22 CHEST 1 VIEW AP/PA ONLY HISTORY: Generalized weakness. COMPARISON: 09/03/2021. TECHNIQUE: Frontal view of the chest. FINDINGS: There are mildly prominent interstitial markings in the perihilar region, bilaterally. No airspace consolidation is seen. There is no pleural effusion or pneumothorax. The cardiac silhouette is stable in size. IMPRESSION: Mild central interstitial edema. Dictated on workstation # [id number] Dict: 08/16/22 1512 Trans: 08/16/22 1517 [facility] [id number] Interpreted by: MUSA JC MD Electronically signed by: Departure Communication (Admissions) Time/Spoke to Admitting Phy: 16:[address] Centeno and accepted for admission to the observation unit Impression Primary Impression: Generalized weakness Additional Impressions: Hypokalemia Acute dehydration Pulmonary edema Disposition: 30 STILL A PATIENT Condition: Stable Admissions Decision to Admit Reason: Admit from ER (General) Decision to Admit/Date: August 16, 2022 Time/Decision to Admit Time: 16:00 Transfer Method of Transfer: EMS Departure-Patient Inst. Referrals: BARRY MANSFIELD MD (PCP/Family) Primary Care Physician TRACI MARTINS MD August 16, 2022 14:46
[2022-08-16 15:09] LABS: BASOPHILS # (AUTO) 0.1 10^3/uL (0.0-0.1); BASOPHILS % (AUTO) 1 % (0-10); EOSINOPHILS # (AUTO) 1.1 10^3/uL (0.0-0.3); EOSINOPHILS % (AUTO) 9 % (0-10); HEMATOCRIT 38 % (40-54); HEMOGLOBIN 12.4 g/dL (13.3-17.7); LYMPHOCYTES # (AUTO) 2.2 10^3/uL (1.0-4.0); LYMPHOCYTES % (AUTO) 19 % (12-44); MEAN CORPUSCULAR HEMOGLOBIN 31 pg (25-34); MEAN CORPUSCULAR HGB CONC 33 g/dL (32-36); MEAN CORPUSCULAR VOLUME 96 fL (80-99); MONOCYTES # (AUTO) 1.1 10^3/uL (0.0-1.0); MONOCYTES % (AUTO) 9 % (0-12); NEUTROPHILS # (AUTO) 7.2 10^3/uL (1.8-7.8); NEUTROPHILS % (AUTO) 62 % (42-75); PLATELET COUNT 248 10^3/uL (130-400); WHITE BLOOD COUNT 11.7 10^3/uL (4.3-11.0)
--- NOTE | 2022-08-16 15:18 | Diagnostic Imaging Report ---
HISTORY: Generalized weakness. COMPARISON: 09/03/2021. TECHNIQUE: Frontal view of the chest. FINDINGS: There are mildly prominent interstitial markings in the perihilar region, bilaterally. No airspace consolidation is seen. There is no pleural effusion or pneumothorax. The cardiac silhouette is stable in size. IMPRESSION: Mild central interstitial edema. Dictated by: Dictated on workstation # [id number]
[2022-08-16 15:28] LABS: BILIRUBIN,URINE NEGATIVE (NEGATIVE); CLARITY,URINE CLEAR; COLOR,URINE YELLOW; GLUCOSE, URINE (UA) NEGATIVE (NEGATIVE); KETONES,URINE NEGATIVE (NEGATIVE); LEUKOCYTE ESTERASE ,URINE NEGATIVE (NEGATIVE); NITRITE,URINE NEGATIVE (NEGATIVE); PROTEIN,URINE NEGATIVE (NEGATIVE)
[2022-08-16] MEDS ORDERED: FUROSEMIDE 40 MG/4 ML INJ (LASIX) IVP ONE (15:30)
[2022-08-16 15:36] LABS: BACTERIA,URINE TRACE /HPF; CALCIUM OXALATE CRYSTALS,UR FEW /LPF; WBC,URINE 0-2 /HPF
[2022-08-16 15:37] LABS: ALKALINE PHOSPHATASE 82 U/L (40-136); BILIRUBIN,TOTAL 0.8 MG/DL (0.1-1.0); BUN/CREATININE RATIO 10; CALCIUM 8.4 MG/DL (8.5-10.1); CARBON DIOXIDE 31 MMOL/L (21-32); CHLORIDE 94 MMOL/L (98-107); CREATININE SERUM 1.45 MG/DL (0.60-1.30); GFR ESTIMATED 48; GLUCOSE 150 MG/DL (70-105); MAGNESIUM 1.6 MG/DL (1.6-2.4); POTASSIUM 2.6 MMOL/L (3.6-5.0); SODIUM 140 MMOL/L (135-145)
[2022-08-16 15:38] LABS: ALANINE AMINOTRANSFERASE 5 U/L (0-55); ALBUMIN 3.2 GM/DL (3.2-4.5); TOTAL PROTEIN 6.4 GM/DL (6.4-8.2)
[2022-08-16] MEDS ORDERED: NS IV 1000 ML 1,000 ML IV STA (15:40)
[2022-08-16] MEDS ORDERED: CEFEPIME INJECTION 1,000 MG in NS (IVPB) 50 ML IV ONE (15:45)
[2022-08-16] MEDS ORDERED: POTASSIUM CL 10MEQ/50ML IVPB 50 ML IV STA (15:46)
[2022-08-16] MEDS ORDERED: KCL 20 MEQ TAB (K-DUR) PO ONE (16:00)
[2022-08-16] MEDS ORDERED: diphenhydrAMINE 25 MG TAB (BENADRYL) PO PRN (19:15)
[2022-08-16] MEDS ORDERED: LORazepam INJ 2 MG/ML (ATIVAN) VIAL IVP PRN (19:15)
[2022-08-16] MEDS ORDERED: ONDANSETRON 4 MG (ZOFRAN) ORAL DISSOLVE TAB PO PRN (19:15)
[2022-08-16] MEDS ORDERED: LORazepam 0.5 MG (ATIVAN) TABLET PO PRN (19:15)
[2022-08-16] MEDS ORDERED: ONDANSETRON 4 MG/2 ML (SDV) Z0FRAN IV PRN (19:15)
[2022-08-16] MEDS ORDERED: MELATONIN 3 MG TABLET PO PRN (19:15)
[2022-08-16] MEDS ORDERED: WATER (STERILE) FOR INJ 10 ML BTL INJ PRN (19:15)
[2022-08-16] MEDS ORDERED: polyethylene glycoL POWDER 17 GM (MIRALAX) PACK PO PRN (19:15)
[2022-08-16] MEDS ORDERED: ANTACID SUSP 30 ML UDC (MYLANTA) PO PRN (19:15)
[2022-08-16] MEDS ORDERED: diphenhydrAMINE 50 MG/ML INJ (BENADRYL) IVP PRN (19:15)
[2022-08-16] MEDS ORDERED: ACETAMINOPHEN 325 MG TABLET PO PRN (19:15)
[2022-08-16] MEDS ORDERED: HYDROmorphone 2 MG/ML VIAL (DILAUDID) IV PRN (19:15)
[2022-08-16] MEDS ORDERED: ZIPRASIDONE 20 MG INJ (GEODON) VIAL IM PRN (19:15)
[2022-08-16] MEDS ORDERED: BISACODYL 10 MG SUPP (DULCOLAX) PR PRN (19:15)
[2022-08-16 19:18] VITALS: BP 125/63
[2022-08-16] MEDS ORDERED: RT-ALBUTEROL/IPRATROPIUM 3 ML (DUONEB) VIAL INH PRN (19:30)
[2022-08-16] MEDS: MAGNESIUM 1 GM/100 ML IVPB 100 ML IV SCH ×2 (19:34→20:48)
[2022-08-16] MEDS: NS IV 1000 ML 1,000 ML IV SCH (19:34)
[2022-08-16] MEDS: ENOXAPARIN 40 MG/0.4 ML (LOVENOX) SYR SC SCH (19:41)
[2022-08-16] MEDS: DOCUSATE SODIUM 100 MG (COLACE) CAP PO SCH (19:53)
[2022-08-16 20:08] VITALS: BP 116/64
[2022-08-16] MEDS: inSUlin ASPART (NovoLOG) 1 UNIT/0.01 ML (CHARGE PER UNIT) SC SCH (20:48)
[2022-08-16] MEDS: POTASSIUM CL 10MEQ/50ML IVPB 50 ML IV SCH (22:12)
[2022-08-16 23:17] VITALS: BP 108/54
[2022-08-17] MEDS: POTASSIUM CL 10MEQ/50ML IVPB 50 ML IV SCH ×11 (00:02→15:05)
[2022-08-17] MEDS ORDERED: FURO-125 PO ×2 (00:48→05:31)
[2022-08-17 04:02] VITALS: BP 121/70
[2022-08-17 05:36] LABS: BASOPHILS # (AUTO) 0.1 10^3/uL (0.0-0.1); BASOPHILS % (AUTO) 1 % (0-10); EOSINOPHILS # (AUTO) 1.5 10^3/uL (0.0-0.3); EOSINOPHILS % (AUTO) 15 % (0-10); HEMATOCRIT 36 % (40-54); LYMPHOCYTES # (AUTO) 2.2 10^3/uL (1.0-4.0); LYMPHOCYTES % (AUTO) 21 % (12-44); MEAN CORPUSCULAR HEMOGLOBIN 31 pg (25-34); MEAN CORPUSCULAR HGB CONC 33 g/dL (32-36); MEAN CORPUSCULAR VOLUME 95 fL (80-99); MEAN PLATELET VOLUME 9.5 fL (9.0-12.2); MONOCYTES # (AUTO) 0.9 10^3/uL (0.0-1.0); MONOCYTES % (AUTO) 9 % (0-12); NEUTROPHILS # (AUTO) 5.7 10^3/uL (1.8-7.8); NEUTROPHILS % (AUTO) 55 % (42-75); PLATELET COUNT 251 10^3/uL (130-400); WHITE BLOOD COUNT 10.4 10^3/uL (4.3-11.0)
[2022-08-17] MEDS: inSUlin ASPART (NovoLOG) 1 UNIT/0.01 ML (CHARGE PER UNIT) SC SCH ×4 (05:42→20:16)
[2022-08-17 05:55] LABS: ALANINE AMINOTRANSFERASE < 6 U/L (0-55); ALBUMIN 2.9 GM/DL (3.2-4.5); ALKALINE PHOSPHATASE 63 U/L (40-136); BUN/CREATININE RATIO 10; CALCIUM 8.3 MG/DL (8.5-10.1); CARBON DIOXIDE 30 MMOL/L (21-32); CHLORIDE 100 MMOL/L (98-107); CREATININE SERUM 1.39 MG/DL (0.60-1.30); GFR ESTIMATED 50; GLUCOSE 119 MG/DL (70-105); POTASSIUM 2.9 MMOL/L (3.6-5.0); SODIUM 143 MMOL/L (135-145); TOTAL PROTEIN 5.9 GM/DL (6.4-8.2)
[2022-08-17 06:28] LABS: EOSINOPHILS % (MANUAL) 12 %; LYMPHOCYTES % (MANUAL) 20 %; MONOCYTES % (MANUAL) 9 %; NEUTROPHILS % (MANUAL) 59 %; RBC MORPH NORMAL
--- NOTE | 2022-08-17 07:25 | History & Physical-Hospitalist ---
History of Present Illness HPI/Chief Complaint CC: Weakness with hypokalemia HPI: This is an 82yoWM clinic patient of Dr Nair who presented to the [facility] ER with complaints of weakness. He lives with his family in the same home. Son at bedside reports he is very weak but the next statement is "when can he go home?" This is very confusing situation for nursing staff also since the patient appears to be bedridden and assessed in my opinion to be a hospice candidate but son having difficulties with taking care of him at home but then asking if he can go home today. Will hold him until SW here tomorrow. Source: patient, family Exam Limitations: clinical condition Date Seen 08/17/22 Time Seen by a Provider: 11:00 Attending Physician Zurdo Nair MD PCP Admitting Physician: Linda Centeno DO Attending Physician: Linda Centeno DO Referring Physician Date of Admission August 16, 2022 at 18:52 Home Medications & Allergies Home Medications Reviewed patient Home Medication Reconciliation performed by pharmacy medication reconciliations payroll technician and/or nursing. Patients Allergies have been reviewed. Allergies Allergies Coded Allergies Nllvpgz-BIC-OtT Reductase Inhibitor (Verified Allergy, Unknown, 03/02/21) atorvastatin (Verified Allergy, Unknown, 03/02/21) clopidogrel (Verified Allergy, Unknown, 03/02/21) erythromycin base (Verified Allergy, Unknown, 03/02/21) meclizine (Verified Allergy, Unknown, 03/02/21) Past Dqtxdhb-Itvhil-Vumtji Hx Patient Social History Marrital Status: single Employed/Student: retired Tobacco Use?: Yes Tobacco type used: Cigarettes Smoking Status: Former Smoker Smokeless Tobacco Frequency: Never a User Use of E-Cig and/or Vaping dev: No Use of E-Cig and/or Vaping Sourav: Never a User Substance use?: No Alcohol Use?: No Pt feels they are or have been: No Immunizations Up To Date Date of Influenza Vaccine: Jan 18, 2021 First/Initial COVID19 Vaccinat: May 2020 Second COVID19 Vaccination Sabino: June 2020 Current Status Advance Directives: Unable to obtain Communicates: Verbally Primary Language: Malaysian Preferred Spoken Language: Malaysian Is interpretation needed?: No Implanted or Applied Medical D: Orthopedic hardware Past Medical History High Cholesterol, Hypertension Dementia Review of Systems Constitutional: see HPI, malaise, weakness Physical Exam Physical Exam Vital Signs Vital Signs - First Documented 08/16/22 14:32 Temp 36.9 Pulse 79 Resp 16 B/P (MAP) 131/79 (96) Pulse Ox 94 O2 Delivery Room Air Capillary Refill : Less Than 3 Seconds Height, Weight, BMI Height: '" Weight: lbs. oz. kg; 26.35 BMI Method: General Appearance: No Apparent Distress, Chronically ill, Thin Eyes: Right Eye Normal Inspection, Right Eye PERRL HEENT: PERRL/EOMI, Normal ENT Inspection, Pharynx Normal, Moist Mucous Membrane s Neck: Full Range of Motion, Normal Inspection, Non Tender Respiratory: Chest Non Tender, Lungs Clear, Normal Breath Sounds, No Accessory Muscle Use, No Respiratory Distress, Decreased Breath Sounds Cardiovascular: Regular Rate, Rhythm, No Edema, No Gallop, No JVD, No Murmur, Normal Peripheral Pulses Gastrointestinal: Normal Bowel Sounds, No Organomegaly, No Pulsatile Mass, Non Tender, Soft Back: Normal Inspection, No CVA Tenderness, No Vertebral Tenderness Extremity: Normal Capillary Refill, Normal Inspection, Normal Range of Motion, Non Tender, No Calf Tenderness, No Pedal Edema Neurologic/Psychiatric: Alert, Oriented x3, Depressed Affect, Motor Weakness (generalized) Skin: Normal Color, Warm/Dry Lymphatic: No Adenopathy Results Results/Procedures Labs Laboratory Tests 08/16/22 15:00 08/17/22 05:15 Patient resulted labs reviewed. Assessment/Plan Admission Diagnosis Assessment: Generalized weakness Failure to thrive Hypokalemia HTN HLP Plan: Supportive care Potassium supplement Monitor labs Needs additional help at home I would recommend hospice Admission Status: Observation LINDA CENTENO DO August 17, 2022 07:25
[2022-08-17 07:27] VITALS: BP 115/56
[2022-08-17] MEDS: NS IV 1000 ML 1,000 ML IV SCH ×3 (08:00→20:13)
[2022-08-17] MEDS: DOCUSATE SODIUM 100 MG (COLACE) CAP PO SCH ×2 (08:12→20:06)
[2022-08-17 11:30] VITALS: BP 120/57
[2022-08-17 16:24] VITALS: BP 108/53
[2022-08-17] MEDS: ENOXAPARIN 40 MG/0.4 ML (LOVENOX) SYR SC SCH (20:06)
[2022-08-17 20:20] VITALS: BP 124/59
[2022-08-18 00:04] VITALS: BP 118/55
[2022-08-18] MEDS ORDERED: LORazepam INJ 2 MG/ML (ATIVAN) VIAL IM PRN (00:30)
[2022-08-18] MEDS ORDERED: ZIPRASIDONE 20 MG INJ (GEODON) VIAL IM PRN (00:45)
--- NOTE | 2022-08-18 05:18 | Progress Note - Hospitalist ---
Subjective HPI/CC On Admission Date Seen by Provider: August 18, 2022 Time Seen by Provider: 10:00 CC: Weakness with hypokalemia HPI: This is an 82yoWM clinic patient of Dr Nair who presented to the [facility] ER with complaints of weakness. He lives with his family in the same home. Son at bedside reports he is very weak but the next statement is "when can he go home?" This is very confusing situation for nursing staff also since the patient appears to be bedridden and assessed in my opinion to be a hospice candidate but son having difficulties with taking care of him at home but then asking if he can go home today. Will hold him until SW here tomorrow. Focused Exam Lactate Level 08/16/22 15:00: Lactic Acid Level 2.79*H Objective Exam Vital Signs Vital Signs Date Time Temp Pulse Resp B/P (MAP) Pulse Ox O2 Delivery O2 Flow Rate FiO2 08/18/22 07:45 36.6 62 16 91/50 (64) 94 Room Air Capillary Refill : Less Than 3 Seconds Results/Procedures Lab Laboratory Tests 08/18/22 05:15 Patient resulted labs reviewed. JULIAN ANDERSON DO August 18, 2022 05:18
[2022-08-18] MEDS: inSUlin ASPART (NovoLOG) 1 UNIT/0.01 ML (CHARGE PER UNIT) SC SCH (05:29)
[2022-08-18 05:39] LABS: BASOPHILS # (AUTO) 0.1 10^3/uL (0.0-0.1); BASOPHILS % (AUTO) 1 % (0-10); EOSINOPHILS # (AUTO) 1.5 10^3/uL (0.0-0.3); EOSINOPHILS % (AUTO) 20 % (0-10); HEMATOCRIT 33 % (40-54); HEMOGLOBIN 10.8 g/dL (13.3-17.7); LYMPHOCYTES # (AUTO) 2.1 10^3/uL (1.0-4.0); LYMPHOCYTES % (AUTO) 27 % (12-44); MEAN CORPUSCULAR HEMOGLOBIN 32 pg (25-34); MEAN CORPUSCULAR HGB CONC 33 g/dL (32-36); MEAN CORPUSCULAR VOLUME 97 fL (80-99); MEAN PLATELET VOLUME 9.5 fL (9.0-12.2); MONOCYTES # (AUTO) 0.6 10^3/uL (0.0-1.0); MONOCYTES % (AUTO) 8 % (0-12); NEUTROPHILS # (AUTO) 3.3 10^3/uL (1.8-7.8); NEUTROPHILS % (AUTO) 43 % (42-75); PLATELET COUNT 247 10^3/uL (130-400); WHITE BLOOD COUNT 7.6 10^3/uL (4.3-11.0)
[2022-08-18 05:57] LABS: ALBUMIN 2.6 GM/DL (3.2-4.5); BILIRUBIN,TOTAL 0.7 MG/DL (0.1-1.0); CREATININE SERUM 1.18 MG/DL (0.60-1.30); POTASSIUM 3.2 MMOL/L (3.6-5.0); TOTAL PROTEIN 5.2 GM/DL (6.4-8.2)
[2022-08-18 07:45] VITALS: BP 91/50
[2022-08-18] MEDS: DOCUSATE SODIUM 100 MG (COLACE) CAP PO SCH (07:48)
--- NOTE | 2022-08-18 09:21 | Occupational Therapy Eval ---
OT Evaluation-General/PLF Medical Diagnosis Admission Date August 16, 2022 at 18:52 Medical Diagnosis: weakness/hypokalemia Onset Date: August 18, 2022 Therapy Diagnosis Therapy Diagnosis: weakness/confusion Precautions Precautions/Isolations: Fall Prevention, Standard Precautions Safety Interventions: Bed Exit Alarm Weight Bear Status Weight Bearing Restriction: Full Weight Bearing Referral Referral Reason: Evaluation/Treatment Medical History Pertinent Medical History: Dementia, HTN Social History Home: Single Level Current Living Status: Other Family Entry Into Home: Stairs With Railing Steps Into Home: 3 ADL-Prior Level of Function SCALE: Activities may be completed with or without assistive devices. 5-Dmbkwyrovz-ezqgino completes the activity by him/herself with no assistance from a helper. 5-Set-up or Clean-up Assistance-helper sets up or cleans up; patient completes activity. [place] assists only prior to or following the activity. 4-Supervision or Touching Assistance-helper provides verbal cues and/or touching/steadying and/or contact guard assistance as patient completes activity. Assistance may be provided throughout the activity or intermittently. 3-Partial/Moderate Assistance-helper does LESS THAN HALF the effort. [place] lifts, holds or supports trunk or limbs, but provides less than half the effort. 2-Substantial/Maximal Assistance-helper does MORE THAN HALF the effort. [place] lifts or holds trunk or limbs and provides more than half the effort. 9-Goqihajvr-senxaj does ALL the effort. Patient does none of the effort to complete the activity. Or, the assistance of 2 or more helpers is required for the patient to complete the activity. If activity was not attempted, code reason: 7-Patient Refused. 9-Not Applicable-not attempted and the patient did not perform the activity before the current illness, exacerbation or injury. 10-Not Attempted due to Environmental Limitations-(lack of equipment, weather restraints, etc.). 88-Not Attempted due to Medical Conditions or Safety Concerns. Self Care: Needed Some Help Functional Cognition: Needed Some Help DME/Equipment: Bath Chair, Bedside Commode, Grab Bars DME/Equipment Comments hand rails in home, has walker, but doesn't use it, Son is primary caregiver for patient and patient spouse Drive Self: No OT Current Status Subjective Patents replies, "I don't know" to most questions, son is present Mental Status/Objective Patient Orientation: Eyes Open Attachments: Don Catheter, IV Current Glasses/Contacts: No Upper Extremity ROM BUE ROM WFLS Upper Extremity Coordination delayed Upper Extremity Strength +3/5 observed, does not follow commands for MMT ADL-Treatment ADL-Current Patents receives assistance for All ADL, transfers form lift recliner at home, ambulates with SBA, Eating (QC): 3 (d/t vision loss ) Oral Hygiene (QC): 3 Shower/Bathe Self (QC): 2 Upper Body Dressing (QC): 3 Lower Body Dressing (QC): 2 On/Off Footwear (QC): 2 Toileting Hygiene (QC): 2 Education OT Patient Education: Correct positioning, Disease process, Modified ADL techniques, Progress toward Goal/Update tx plan, Purpose of tx/functional activities, Reviewed precautions, Safety issues, Transfer techniques Teaching Recipient: Patient, Family Teaching Methods: Discussion Response to Teaching: Verbalize Understanding, Unable to Return Demonstration OT Electric Meter Installer Helper Goals Half-Way Goals Eating (QC): 4 Oral Hygiene (QC): 4 Toileting Hygiene (QC): 3 Shower/Bathe Self (QC): 4 Upper Body Dressing (QC): 4 Lower Body Dressing (QC): 4 On/Off Footwear (QC): 4 1=Demonstrate adherence to instructed precautions during ADL tasks. 2=Patient will verbalize/demonstrate understanding of assistive devices/modif ications for ADL. 3=Patient will improve strength/tolerance for activity to enable patient to perform ADL's. OT Education/Plan Problem List/Assessment Assessment: Decreased Activ Tolerance, Decreased Safety Aware, Decreased UE Strength, Impaired Bed Mobility, Impaired Cognition, Impaired Coordination, Impaired Funct Balance, Impaired Self-Care Skills Discharge Recommendations Plan/Recommendations: Continue POC Therapy Discharge Recommendati: Post Acute OT Treatment Plan/Plan of Care Treatment,Training & Education: Yes Patient would benefit from OT for education, treatment and training to promote independence in ADL's, mobility, safety and/or upper extremity function for ADL's. Plan of Care: ADL Retraining, Caregiver Training, Concurrent Therapy, Functional Mobility, Group Exercise/Act as Ind, UE Funct Exercise/Act, Visual/Perceptual Retrain Comment All needs met. Chair alarm activate Treatment Duration: August 30, 2022 Frequency: 3 times per week (3-5 times per week) Time Start Time: :15 Stop Time: :34 DATE: August 18, 2022 Total Time Billed (hr/min): 19 Billed Treatment Time EVM 19 min NORBERTO KING OT August 18, 2022 09:21
[2022-08-18] MEDS ORDERED: eZETimibe 10 MG (ZETIA) TABLET PO SCH (10:15)
[2022-08-18] MEDS ORDERED: KCL 20 MEQ TAB (K-DUR) PO SCH (10:15)
[2022-08-18] MEDS ORDERED: POTA-177 PO (10:16)
--- NOTE | 2022-08-18 10:16 | Discharge Summary ---
Discharge Summary Hospital Course Was the Problem List Reviewed?: Yes Problems/Dx: (1) Generalized weakness Status: Acute (2) Hypokalemia Status: Acute (3) Acute dehydration Status: Acute Hospital Course Date of Admission: August 16, 2022 at 18:52 Admission Diagnosis : Family Physician/Provider: Zurdo Nair MD Date of Discharge: 08/18/22 Discharge Diagnosis: [ ] Hospital Course: Uneventful course after he was admitted for hypokalemia and dehydration and weakness. Patient appeared to be very end stage dementia and overall functioning. He did have sundowner episode and required sedative. Potassium was supplemented and patient did participate in therapy and was at his baseline function so he was DC on HH. Patient really met criteria for hospice but son was not ready for a conversation like that so PCP will need to eval. Labs and Pending Lab Test: Laboratory Tests 08/17/22 16:12: Glucometer 98 08/17/22 20:16: Glucometer 124H 08/18/22 05:14: Glucometer 106 08/18/22 05:15: White Blood Count 7.6, Red Blood Count 3.37L, Hemoglobin 10.8L, Hematocrit 33L, Mean Corpuscular Volume 97, Mean Corpuscular Hemoglobin 32, Mean Corpuscular Hem oglobin Concent 33, Red Cell Distribution Width 13.2, Platelet Count 247, Mean Platelet Volume 9.5, Immature Granulocyte % (Auto) 0, Neutrophils (%) (Auto) 43, Lymphocytes (%) (Auto) 27, Monocytes (%) (Auto) 8, Eosinophils (%) (Auto) 20H, Basophils (%) (Auto) 1, Neutrophils # (Auto) 3.3, Lymphocytes # (Auto) 2.1, Monocytes # (Auto) 0.6, Eosinophils # (Auto) 1.5H, Basophils # (Auto) 0.1, Immature Granulocyte # (Auto) 0.0, Sodium Level 142, Potassium Level 3.2L, Chloride Level 103, Carbon Dioxide Level 28, Anion Gap 11, Blood Urea Nitrogen 9, Creatinine 1.18, Estimat Glomerular Filtration Rate 61, BUN/Creatinine Ratio 8, Glucose Level 107H, Calcium Level 8.0L, Corrected Calcium 9.1, Total Bilirubin 0.7, Aspartate Amino Transf (AST/SGOT) 16, Alanine Aminotransferase (ALT/SGPT) 6, Alkaline Phosphatase 53, Total Protein 5.2L, Albumin 2.6L Microbiology 08/16/22 Blood Culture - Preliminary, Resulted No growth Home Meds Active Reported Lasix (Furosemide) 20 Mg Tablet 20 Mg PO DAILY Donepezil HCl 10 Mg Tablet 10 Mg PO HS Ocuvite Eye + Multi Tablet (Mv-Mn/FA/Vit K/Lycop/Lut/Zeaxa) 1 Each Tablet 1 Each PO DAILY Flomax (Tamsulosin HCl) 0.4 Mg Cap 0.4 Mg PO HS [Prevagen] 10 Mg PO DAILY Preservision Areds Tablet (Vit A/Vit C/Vit E/Zinc/Copper) 1 Each Tablet 1 Each PO DAILY Metformin HCl 500 Mg Tablet 500 Mg PO BID TAKES 2 500MG TABLETS Glucosamine (Glucosamine Sulfate 2Kcl) 1,000 Mg Tablet 1,000 Mg PO DAILY Gemfibrozil 600 Mg Tablet 600 Mg PO BID Ezetimibe 10 Mg Tablet 10 Mg PO ONCE Assessment/Pt Instructions PCP 1 week Discharge Planning: <30 minutes discharge planning Discharge Physical Examination Vital Signs Vital Signs Date Time Temp Pulse Resp B/P (MAP) Pulse Ox O2 Delivery O2 Flow Rate FiO2 08/18/22 07:45 36.6 62 16 91/50 (64) 94 Room Air General Appearance: No Apparent Distress, WD/WN, Chronically ill Allergies: Coded Allergies: [id number]-[id number] Reductase Inhibitor (Verified Allergy, Unknown, 03/02/21) atorvastatin (Verified Allergy, Unknown, 03/02/21) clopidogrel (Verified Allergy, Unknown, 03/02/21) erythromycin base (Verified Allergy, Unknown, 03/02/21) meclizine (Verified Allergy, Unknown, 03/02/21) Discharge Summary Date of Admission August 16, 2022 at 18:52 Date of Discharge Discharge Date: August 18, 2022 Admission Diagnosis Assessment: Generalized weakness Failure to thrive Hypokalemia HTN HLP Plan: Supportive care Potassium supplement Monitor labs Needs additional help at home I would recommend hospice JULIAN ANDERSON DO August 18, 2022 10:16
--- NOTE | 2022-08-18 10:45 | Physical Therapy Evaluation ---
PT Evaluation-General Medical Diagnosis Admission Date August 16, 2022 at 18:52 Medical Diagnosis: weakness/hypokalmia Onset Date: August 16, 2022 Therapy Diagnosis Therapy Diagnosis: debility/weakness Precautions Precautions/Isolations: Fall Prevention, Standard Precautions Referral Physician: Jacobo Reason for Referral: Evaluation/Treatment Medical History Pertinent Medical History: Dementia, HTN, Renal Insufficiency Additional Medical History encephalopathy Current History ER secondary to weakness Social History Home: Single Level Current Living Status: Other Family Entry Into Home: Stairs With Railing PT Steps Into Home: 3 Prior Prior Level of Function SCALE: Activities may be completed with or without assistive devices. 6-Ylqholiqja-efcfbyz completes the activity by him/herself with no assistance from a helper. 5-Set-up or Clean-up Assistance-helper sets up or cleans up; patient completes activity. Branch assists only prior to or following the activity. 4-Supervision or Touching Assistance-helper provides verbal cues and/or touching/steadying and/or contact guard assistance as patient completes activity. Assistance may be provided throughout the activity or intermittently. 3-Partial/Moderate Assistance-helper does LESS THAN HALF the effort. Branch lifts, holds or supports trunk or limbs, but provides less than half the effort. 2-Substantial/Maximal Assistance-helper does MORE THAN HALF the effort. Branch lifts or holds trunk or limbs and provides more than half the effort. 6-Udjiuxhzo-mkufud does ALL the effort. Patient does none of the effort to complete the activity. Or, the assistance of 2 or more helpers is required for the patient to complete the activity. If activity was not attempted, code reason: 7-Patient Refused. 9-Not Applicable-not attempted and the patient did not perform the activity before the current illness, exacerbation or injury. 10-Not Attempted due to Environmental Limitations-(lack of equipment, weather restraints, etc.). 88-Not Attempted due to Medical Conditions or Safety Concerns. Bed Mobility: 3 Transfers (B,C,W/C): 3 Gait: 3 Stairs: 3 Indoor Mobility (Ambulation): Needed Some Help Stairs: Needed Some Help Prior Devices Use: None (son assist) PT Evaluation-Current Subjective Patient is in bed with son present. Both agree to therapy. Objective Patient Orientation: Confused Attachments: Don Catheter, IV ROM/Strength ROM Lower Extremities bilateral LE WFL Strength Lower Extremities 3/5 grossly bilateral LE all planes ( no formal testing due to inability to follow direction) Integumentary/Posture Integumentary refer to nursing notes Bowel Incontinence: Yes Bladder Incontinence: Don Cath Posture trunk flexed posture Neuromuscular (Tone, Coordination, Reflexes) diminished coordination Sensory Vision: macular de Hearing: Functional Transfers Lying to Sitting/Side of Bed(Q: 3 Sit to Stand (QC): 3 Chair/Cap-mk-Qnwup Xfer(QC): 3 Gait Mode of Locomotion: Walk Anticipated Mode of Locomotion: Walk Walk 10 feet (QC): 3 Walk 50 ft with 2 Turns(QC): 3 Walk 150 ft (QC): 9 Distance: 50' Gait Assistive Device: FWW Comments/Gait Description PT/OT assist to direct FWW/steady gait sequence Balance Sitting Static: Fair Sitting Dynamic: Fair Standing Static: Fair Standing Dynamic: Fair Assessment/Needs Patient will benefit from skilled PT to address functional strength and mobility to improve current LOF to safely return to home with family at maximum LOF. Family assist with all mobility and ADL's PLOF. Rehab Potential: Guarded PT Edgerman Goals Edgerman Goals PT Edgerman Goals Time Frame: August 30, 2022 Roll Left & Right (QC): 4 Sit to Lying (QC): 4 Lying-Sitting on Side/Bed(QC): 4 Sit to Stand (QC): 4 Chair/Kde-ey-Mdnvb Xfer(QC): 4 Walk 10 feet (QC): 4 Walk 50ft with 2 Turns (QC): 4 PT Plan Problem List Problem List: Activity Tolerance, Functional Strength, Safety, Balance, Gait, Transfer, Bed Mobility Treatment/Plan Treatment Plan: Continue Plan of Care Treatment Plan: Bed Mobility, Education, Functional Activity Taryn, Functional Strength, Gait, Safety, Therapeutic Exercise, Transfers Treatment Duration: August 30, 2022 Frequency: 6 times per week Estimated Hrs Per Day: .25 hour per day Time Time In: 915 Time Out: 934 DATE: August 18, 2022 Total Billed Treatment Time: 19 Total Billed Treatment 1 visit EVMod 19 min RACHEL DAY PT August 18, 2022 10:45
[2022-08-18 11:15] VITALS: BP 91/50
[2022-08-18] MEDS ORDERED: metFORMIN 500 MG (GLUCOPHAGE) TAB PO SCH (21:00)
[2022-08-18] MEDS ORDERED: GEMFIBROZIL 600 MG (LOPID) TAB PO SCH (21:00)
[2022-08-18] MEDS ORDERED: TAMSULOSIN 0.4 MG (FLOMAX) CAP PO SCH (21:00)
[2022-08-18] MEDS ORDERED: DONEPEZIL 10 MG (ARICEPT) TAB PO SCH (21:00)
[2022-08-19] MEDS ORDERED: NON-FORMULARY MEDICATION 1 EA EA (Glucosamine Sulfate 2Kcl (Glucosamine) 1,000 MG) PO SCH (09:00)
[2022-08-19] MEDS ORDERED: FUROSEMIDE 20 MG (LASIX) TAB PO SCH (09:00)
[2022-08-19] MEDS ORDERED: PREVAGEN 10 MG PO SCH (09:00)
[2022-08-19] MEDS ORDERED: NON-FORMULARY MEDICATION 1 EA EA (Vit A/Vit C/Vit E/Zinc/Copper (Preservision Areds Tablet PO SCH (09:00)
== END 2022-08-18 10:11 | disposition home or self-care (01) ==
LOC: EDUNIT# 14:27 → ER FS 14:30 → 4TH 18:52
PROVIDERS: ADMIT Internal Medicine; ATTEND Internal Medicine
DX: R53.1 Weakness (principal); R62.7 Adult failure to thrive; E87.6 Hypokalemia; I10 Essential (primary) hypertension; E78.5 Hyperlipidemia, unspecified; J81.1 Chronic pulmonary edema; E86.0 Dehydration; Z87.891 Personal history of nicotine dependence
CPT/HCPCS: 36415; 71045; 80053; 81000; 82947; 83605; 83735; 83880; 84484; 85007; 85025; 85027; 87040; 87636; 93005; 96361; 96366; 96372; 96376

== ENCOUNTER 2022-08-20 10:35 | Emergency (ER) | payer MEDICARE ==
[~2022-08-20] VITALS: Ht 177.8 cm; Wt 81.0 kg
[~2022-08-20 10:35] MED LIST changes: +FURO-125 PO; +POTA-177 PO
[2022-08-20] MEDS ORDERED: NS 100 ML (IVPB) BAG IV ONE (10:45)
[2022-08-20] MEDS ORDERED: IOHEXOL 350 MG/ML 100 ML (OMNIPAQUE 350) VIAL IV ONE (10:45)
[2022-08-20] MEDS ORDERED: HOLD METFORMIN - RECEIVED CONTRAST 20 ML VIAL IV SCH (10:45)
[2022-08-20 10:48] LABS: BASOPHILS # (AUTO) 0.1 10^3/uL (0.0-0.1); BASOPHILS % (AUTO) 1 % (0-10); EOSINOPHILS # (AUTO) 0.8 10^3/uL (0.0-0.3); EOSINOPHILS % (AUTO) 9 % (0-10); HEMATOCRIT 35 % (40-54); HEMOGLOBIN 11.4 g/dL (13.3-17.7); LYMPHOCYTES # (AUTO) 1.9 10^3/uL (1.0-4.0); LYMPHOCYTES % (AUTO) 20 % (12-44); MEAN CORPUSCULAR HEMOGLOBIN 32 pg (25-34); MEAN CORPUSCULAR HGB CONC 33 g/dL (32-36); MEAN CORPUSCULAR VOLUME 96 fL (80-99); MEAN PLATELET VOLUME 9.1 fL (9.0-12.2); MONOCYTES % (AUTO) 10 % (0-12); NEUTROPHILS # (AUTO) 5.6 10^3/uL (1.8-7.8); NEUTROPHILS % (AUTO) 60 % (42-75); PLATELET COUNT 255 10^3/uL (130-400); WHITE BLOOD COUNT 9.4 10^3/uL (4.3-11.0)
--- NOTE | 2022-08-20 11:00 | ED General ---
General Stated Complaint: GEN WEAKNESS Source of Information: Patient, Caregiver, EMS, Old Records Exam Limitations: No Limitations History of Present Illness Date Seen by Provider: August 20, 2022 Time Seen by Provider: 10:35 Initial Comments 82-year-old male with past medical history of advanced dementia, DM, HTN coming in via EMS from home due to general weakness. The patient was admitted to the hospital several days ago and discharged yesterday per the family. He was admitted for weakness, and low potassium. His potassium was supplemented and he was eventually discharged home. He still is not quite back to baseline and family called 911 to have him brought back to the ER. The patient is denying any pain anywhere, and is unsure why he is here. Further elements of the history and physical were unable to be obtained from the patient due to his dementia. Allergies and Home Medications Allergies Coded Allergies: Iryaidy-WUL-TqJ Reductase Inhibitor (Verified Allergy, Unknown, 08/20/22) atorvastatin (Verified Allergy, Unknown, 08/20/22) clopidogrel (Verified Allergy, Unknown, 08/20/22) erythromycin base (Verified Allergy, Unknown, 08/20/22) meclizine (Verified Allergy, Unknown, 08/20/22) Patient Home Medication List Home Medication List Reviewed: Yes Donepezil HCl (Donepezil HCl) 10 Mg Tablet, 10 MG PO HS, (Reported) Entered as Reported by: JACOBO MCDONALD on 08/31/21 2243 Doxycycline Hyclate (Doxycycline Hyclate) 100 Mg Tablet, 100 MG PO BID Prescribed by: AMPARO DOWNS on 08/20/22 1514 Ezetimibe (Ezetimibe) 10 Mg Tablet, 10 MG PO ONCE, (Reported) Entered as Reported by: RAZIA MCINTOSH on 03/02/21 170 Furosemide (Lasix) 20 Mg Tablet, 20 MG PO DAILY, (Reported) Entered as Reported by: JULIANA MENDOZA on 08/17/22 0531 Gemfibrozil (Gemfibrozil) 600 Mg Tablet, 600 MG PO BID, (Reported) Entered as Reported by: RAZIA MCINTOSH on 03/02/21 171 Glucosamine Sulfate 2Kcl (Glucosamine) 1,000 Mg Tablet, 1,000 MG PO DAILY, (Reported) Entered as Reported by: RAZIA MCINTOSH on 03/02/211712 Metformin HCl (Metformin HCl) 500 Mg Tablet, 500 MG PO BID, (Reported) Entered as Reported by: RAZIA MCINTOSH on 03/02/211712 Mv-Mn/FA/Vit K/Lycop/Lut/Zeaxa (Ocuvite Eye + Multi Tablet) 1 Each Tablet, 1 EACH PO DAILY, (Reported) Entered as Reported by: RADHA SHAH on 03/04/21 0851 Potassium Chloride (Potassium Chloride) 10 Meq Tab.er.prt, 10 MEQ PO BID Prescribed by: JULIAN ANDERSON on 08/18/22 1016 Tamsulosin HCl (Flomax) 0.4 Mg Cap, 0.4 MG PO HS, (Reported) Entered as Reported by: RAZIA MCINTOSH on 03/02/211712 Vit A/Vit C/Vit E/Zinc/Copper (Preservision Areds Tablet) 1 Each Tablet, 1 EACH PO DAILY, (Reported) Entered as Reported by: RAZIA MCINTOSH on 03/02/211712 [Prevagen] , 10 MG PO DAILY, (Reported) Entered as Reported by: RAZIA MCINTOSH on 03/02/211712 Discontinued Medications Metformin HCl (Metformin HCl) 500 Mg Tablet, 500 MG PO HS, (Reported) Discontinued Reason: No Longer Taking Entered as Reported by: RADHA SHAH on 03/04/21 0849 Review of Systems Review of Systems Constitutional: No fever EENTM: no symptoms reported Respiratory: no symptoms reported Cardiovascular: no symptoms reported Gastrointestinal: no symptoms reported Genitourinary: no symptoms reported Musculoskeletal: see HPI Skin: no symptoms reported Psychiatric/Neurological: See HPI Hematologic/Lymphatic: No Symptoms Reported Past Mwzuonb-Nncvfh-Wsaiiq Hx Patient Social History Tobacco Use?: No Immunizations Up To Date First/Initial COVID19 Vaccinat: May 2020 Second COVID19 Vaccination Sabino: June 2020 Third COVID19 Vaccination Date: February 2021: August 2021 Past Medical History Surgery/Hospitalization HX: anemia, encephalopathy, CKD; Demenia; CHF; DM; BPH; High Cholesterol, Hypertension Dementia Physical Exam Vital Signs Vital Signs - First Documented 08/20/22 10:39 Temp 36.1 Pulse 85 Resp 18 B/P (MAP) 142/63 (89) Pulse Ox 94 O2 Delivery Room Air Capillary Refill : Height, Weight, BMI Height: '" Weight: lbs. oz. kg; 26.35 BMI Method: General Appearance: No Apparent Distress, WD/WN, Other (chronically ill appearing) Eyes: Bilateral Eye Normal Inspection HEENT: PERRL/EOMI, Normal ENT Inspection, Pharynx Normal Neck: Full Range of Motion, Normal Inspection, Non Tender, Supple Respiratory: Chest Non Tender, Lungs Clear, Normal Breath Sounds, No Accessory Muscle Use, No Respiratory Distress Cardiovascular: Regular Rate, Rhythm, Normal Peripheral Pulses Gastrointestinal: Normal Bowel Sounds; No Distended; Guarding (voluntary), Tenderness Back: Normal Inspection, No CVA Tenderness Extremity: Normal Capillary Refill, Normal Range of Motion, Non Tender, No Calf Tenderness, Pedal Edema Neurologic/Psychiatric: Alert, Other (oriented to self, moving all extremities and denies any numbness on exam) Skin: Normal Color, Warm/Dry Focused Exam Lactate Level 08/20/22 10:41: Lactic Acid Level 1.21 Lactic Acid Level Laboratory Tests Test 08/20/22 10:41 Lactic Acid Level 1.21 MMOL/L (0.50-2.00) Progress/Results/Core Measures Suspected Sepsis SIRS Temperature: Pulse: Respiratory Rate: Laboratory Tests 08/20/22 10:41: White Blood Count 9.4 Blood Pressure / Mean: 08/20/22 10:41: Lactic Acid Level 1.21 Laboratory Tests 08/20/22 10:41: Creatinine 1.16, INR Comment 1.1, Platelet Count 255, Total Bilirubin 0.9 Results/Orders Lab Results Laboratory Tests Test 08/20/22 10:41 Range/Units White Blood Count 9.4 4.3-11.0 10^3/uL Red Blood Count 3.60 L 4.30-5.52 10^6/uL Hemoglobin 11.4 L 13.3-17.7 g/dL Hematocrit 35 L 40-54 % Mean Corpuscular Volume 96 80-99 fL Mean Corpuscular Hemoglobin 32 25-34 pg Mean Corpuscular Hemoglobin Concent 33 32-36 g/dL Red Cell Distribution Width 13.4 10.0-14.5 % Platelet Count 255 130-400 10^3/uL Mean Platelet Volume 9.1 9.0-12.2 fL Immature Granulocyte % (Auto) 1 % Neutrophils (%) (Auto) 60 42-75 % Lymphocytes (%) (Auto) 20 12-44 % Monocytes (%) (Auto) 10 0-12 % Eosinophils (%) (Auto) 9 0-10 % Basophils (%) (Auto) 1 0-10 % Neutrophils # (Auto) 5.6 1.8-7.8 10^3/uL Lymphocytes # (Auto) 1.9 1.0-4.0 10^3/uL Monocytes # (Auto) 1.0 0.0-1.0 10^3/uL Eosinophils # (Auto) 0.8 H 0.0-0.3 10^3/uL Basophils # (Auto) 0.1 0.0-0.1 10^3/uL Immature Granulocyte # (Auto) 0.1 0.0-0.1 10^3/uL Prothrombin Time 14.2 12.2-14.7 SEC INR Comment 1.1 0.8-1.4 Activated Partial Thromboplast Time 26 24-35 SEC Sodium Level 140 135-145 MMOL/L Potassium Level 3.3 L 3.6-5.0 MMOL/L Chloride Level 103 98-107 MMOL/L Carbon Dioxide Level 28 21-32 MMOL/L Anion Gap 9 5-14 MMOL/L Blood Urea Nitrogen 11 7-18 MG/DL Creatinine 1.16 0.60-1.30 MG/DL Estimat Glomerular Filtration Rate 62 BUN/Creatinine Ratio 9 Glucose Level 135 H 70-105 MG/DL Lactic Acid Level 1.21 0.50-2.00 MMOL/L Calcium Level 8.3 L 8.5-10.1 MG/DL Corrected Calcium 9.3 8.5-10.1 MG/DL Magnesium Level 1.6 1.6-2.4 MG/DL Total Bilirubin 0.9 0.1-1.0 MG/DL Aspartate Amino Transf (AST/SGOT) 13 5-34 U/L Alanine Aminotransferase (ALT/SGPT) 5 0-55 U/L Alkaline Phosphatase 61 40-136 U/L Troponin I < 0.30 <0.30 NG/ML C-Reactive Protein 18.06 H <0.50 MG/DL Pro-B-Type Natriuretic Peptide 281.1 <450.0 PG/ML Total Protein 5.8 L 6.4-8.2 GM/DL Albumin 2.7 L 3.2-4.5 GM/DL Lipase 26 8-78 U/L My Orders Orders - KRUMSICK,AMPARO K MD Ct Abdomen/Pelvis W (08/20/22 10:40) Ct Head Wo (08/20/22 10:40) Cbc With Automated Diff (08/20/22 10:40) Comprehensive Metabolic Panel (08/20/22 10:40) Lactic Acid Analyzer (08/20/22 10:40) Lipase (08/20/22 10:40) Magnesium (08/20/22 10:40) Protime With Inr (08/20/22 10:40) Partial Thromboplastin Time (08/20/22 10:40) Probnp Fs (08/20/22 10:40) Crp Fs (08/20/22 10:40) Troponin I Fs (08/20/22 10:40) Ed Iv/Invasive Line Start (08/20/22 10:40) Ekg Tracing (08/20/22 10:40) O2 (08/20/22 10:40) Monitor-Rhythm Ecg Trace Only (08/20/22 10:40) Iohexol Injection (Omnipaque 350 Mg/Ml 1 (08/20/22 10:45) Received Contrast (Hold Metformin- Contr (08/20/22 10:45) Ns (Ivpb) (Sodium Chloride 0.9% Ivpb Bag (08/20/22 10:45) Chest 1 View Ap/Pa Only (08/20/22 10:50) Accucheck Prn (08/20/22 14:32) Medications Given in ED Current Medications Medications Dose Ordered Sig/Candelario Route Start Time Stop Time Status Last Admin Dose Admin Iohexol 100 ml ONCE ONCE IV 08/20/22 10:45 08/20/22 10:46 DC 08/20/22 11:21 80 ML Sodium Chloride 100 ml ONCE ONCE IV 08/20/22 10:45 08/20/22 10:46 DC 08/20/22 11:21 100 ML Vital Signs/I&O 08/20/22 10:39 Temp 36.1 Pulse 85 Resp 18 B/P (MAP) 142/63 (89) Pulse Ox 94 O2 Delivery Room Air Capillary Refill : Progress Note : Progress Note 82-year-old male with above history coming in via EMS due to general weakness. ABCs were intact and vitals are stable on presentation. The patient is alert and oriented x1 which is his baseline. He is moving all extremities and not showing any signs of stroke. He does have just some general weakness. I reviewed his discharge summary from a couple of days ago, he was treated for his hypokalemia and received some IV fluids. It was recommended that he go home on hospice, but family is not ready for that at that time. An IV was placed today and basic labs were obtained. They were significant for normal white blood cell count, normal lactic acid, improving creatinine, slightly low potassium, but much improved from his prior admission, and certainly this should not be the cause of his general weakness. He had significant abdominal pain on my exam so a CT abdomen pelvis was ordered. CT head also ordered and interpreted by me showing no obvious hemorrhage or mass. Chest x-ray with some haziness in the left lower lobe which could be atelectasis versus infection. Given the normal white blood cell count, he is afebrile, not tachycardic, no cough, I feel infection would be less likely, but it is possible he is just not having a significant inflammatory response due to his age. CT imaging with some gallstones but no obvious cholecystitis. He also has some signs of portal hypertension but nothing really acute on the imaging. I did a repeat abdominal exam, and he is showing no signs of peritonitis. Most of his pain right now is in his left lower quadrant with no pathology seen on the CT in this area. I discussed with the son who is the DPOA as well as the patient's daughter regarding his case. I also discussed the case with the hospitalist who declines admission at this time. Discussed that I agree with the most recent sentiment from his hospitalization that this patient is a candidate for hospice, and likely will just continue to get worse. After prolonged discussion, the family is interested in hospice. The next concern is that the family is unable to really take care of the patient and they cannot perform his ADLs. They are asking for placement at this time. I contacted the social work lecturer with [employer], and she will work on contacting facilities for potential placement. Update 14:00-[facility] in [place] will be sending out a ambulatory service representative to discuss placement Update 14:30-[facility] may be able to take the patient tomorrow, they will see if his insurance pays for this, and they will not go under hospice designation as of yet due to the family would be stuck with the bill for his placement. Update 15:00-the paperwork for a [facility] has been filled out, they will come pick him up to assist getting him back to the house, their nurse will come over to his house tomorrow to do an assessment for him. Functionally from a treatment standpoint, they have voiced that they want to be under hospice, so we will treat him as a hospice patient unofficially until they work through that later. I will send him home with antibiotics given the atelectasis versus infection on his x-ray. I believe he is stable for discharge with outpatient follow-up. He was sent home with strict return precautions. ECG Initial ECG Impression Date: August 20, 2022 Initial ECG Impression Time: 10:54 Initial ECG Rate: 80 Initial ECG Rhythm: Normal Sinus Comment Narrow QRS, normal axis, no significant ST changes or T wave abnormalities, single PVC present Diagnostic Imaging Diagonstic Imaging: Xray (chest), CT (head, abd/pelvis ) Comments NAME: [facility] REC#: [id number] PT STATUS: REG ER : 1940 PHYSICIAN: AMPARO DOWNS MD ADMIT DATE: 08/20/22/ER FS Draft Date of Exam:08/20/22 CT HEAD WO PROCEDURE: CT head without contrast. TECHNIQUE: Multiple contiguous axial images were obtained through the brain without the use of intravenous contrast. Auto Exposure Controls were utilized during the CT exam to meet ALARA standards for radiation dose reduction. INDICATION: Altered mental status, confusion, weakness COMPARISON: 03/02/2021 FINDINGS: Moderate atrophy. No intracranial hemorrhage. No intracranial mass, mass effect, midline shift, obstructive hydrocephalus, or suspicious extra-axial fluid collection. No definite CT evidence of an acute ischemic infarction. Mild background chronic small vessel white matter ischemic disease. The orbits are unremarkable. Background vascular calcifications. The paranasal sinuses are clear. The calvarium and extra calvarial soft tissues are unremarkable. IMPRESSION: Similar-appearing examination without acute intracranial abnormality. Moderate atrophy with mild background chronic small white matter ischemic disease. Dictated on workstation # [id number] Dict: 08/20/22 1133 Trans: 08/20/22 1157 [facility] [phone] Interpreted by: PENG ALEXANDER MD Electronically signed by: NAME: [facility] REC#: [id number] PT STATUS: REG ER : 1940 PHYSICIAN: AMPARO DOWNS MD ADMIT DATE: 08/20/22/ER FS Draft Date of Exam:08/20/22 CHEST 1 VIEW AP/PA ONLY HISTORY: Altered mental status TECHNIQUE: Frontal view the chest COMPARISON: 08/16/2022 FINDINGS: Lung volumes are normal. There is airspace opacity in the left lung base. There is no pleural effusion or pneumothorax. The cardiac silhouette is normal in size. IMPRESSION: 1. Left basilar airspace opacity, may represent atelectasis or infection. Dictated on workstation # [id number] Dict: 08/20/22 1224 Trans: 08/20/22 1226 [facility] [id number] Interpreted by: MUSA JC MD Electronically signed by: NAME: [facility] REC#: [id number] PT STATUS: REG ER : 1940 PHYSICIAN: AMPARO DOWNS MD ADMIT DATE: 08/20/22/ER FS Draft Date of Exam:08/20/22 CT ABDOMEN/PELVIS W PROCEDURE: CT abdomen and pelvis with contrast. TECHNIQUE: Multiple contiguous axial images were obtained through the abdomen and pelvis after administration of intravenous contrast. Auto Exposure Controls were utilized during the CT exam to meet ALARA standards for radiation dose reduction. All CT scans use one or more of the following dose optimizing techniques: automated exposure control, MA and/or KvP adjustment based on patient size and exam type or iterative reconstruction. INDICATION: Upper left abdominal pain. COMPARISON: There is no previous study for comparison. FINDINGS: There is mild left basilar atelectasis which could be on the basis of splinting. No focal hepatic abnormality is identified. There are multiple stones present within the lumen of the gallbladder which extend into the region of the gallbladder neck and cystic duct as well. There is no significant intra or extrahepatic biliary ductal dilatation. There is mild pericholecystic fluid. In addition, there is fluid along the greater curvature of the stomach and in the left upper quadrant adjacent to the spleen. Tortuous vessels are present within the splenic hilum which may represent portal systemic venous shunt. Mild fluid is seen along the left paracolic gutter. No definite focal pancreatic or adrenal gland abnormality is identified. There is a dominant cyst in the upper pole of the right kidney. The kidneys are otherwise unremarkable. There is mild mural thickening involving the small bowel loops in the left abdomen as well as in the sigmoid segment of the colon. The unopacified bladder is unremarkable. There is artifact from the right hip prosthesis. IMPRESSION: Numerous gallstones in the gallbladder lumen and cystic duct. Early cholecystitis is not excluded. A hepatobiliary scan may be useful for assessing patency of the cystic duct. There is evidence of portal venous hypertension and portosystemic venous collaterals with perisplenic and perigastric fluid in the left upper quadrant. A component of gastroenteritis or possible peptic ulcer disease cannot be excluded. No organized abscess is identified and there is no pneumoperitoneum appreciated. Dictated on workstation # [id number] Dict: 08/20/22 1219 Trans: 08/20/22 1242 [id number] Interpreted by: MAVERICK WESTFALL MD Electronically signed by: Departure Impression Primary Impression: Generalized weakness Additional Impressions: Advanced dementia Qualified Codes: G30.8 - Other Alzheimer's disease; F02.C18 - Dementia in other diseases classified elsewhere, severe, with other behavioral disturbance Debility Disposition: 01 HOME, SELF-CARE Condition: Stable Departure-Patient Inst. Decision time for Depature: 15:20 Referrals: BARRY MANSFIELD MD (PCP) Primary Care Physician Patient Instructions: Dementia ED Add. Discharge Instructions: [facility] we will send out a nurse to your house tomorrow to assess the patient while they work on trying to see if his insurance will find going to the [facility]. If this does not work, then he should contact his regular doctor for assistance with [facility] placement somewhere else as well as transition to hospice care when you guys feel you are ready for that. We will start him on an antibiotic empirically for the next week to cover any potential infection. He can take all of his regular medicines tonight except for his metformin. You can give that to him starting tomorrow. Scripts Doxycycline Hyclate (Doxycycline Hyclate) 100 Mg Tablet 100 MG PO BID for 7 Days, #14 TAB 0 Refills Prov: AMPARO DOWNS MD 08/20/22 Work/School Note: Family Work Note Patient Received Medical Care In the Emergency Department On: August 20, 2022 Patient Will Be Able to Return to Work/School On: August 21, 2022 AMPARO DOWNS MD August 20, 2022 11:00
[2022-08-20 11:07] LABS: INR 1.1 (0.8-1.4); PROTHROMBIN TIME PATIENT 14.2 SEC (12.2-14.7)
[2022-08-20 11:18] LABS: ALANINE AMINOTRANSFERASE 5 U/L (0-55); ALKALINE PHOSPHATASE 61 U/L (40-136); BILIRUBIN,TOTAL 0.9 MG/DL (0.1-1.0); BUN/CREATININE RATIO 9; CALCIUM 8.3 MG/DL (8.5-10.1); CARBON DIOXIDE 28 MMOL/L (21-32); CHLORIDE 103 MMOL/L (98-107); CREATININE SERUM 1.16 MG/DL (0.60-1.30); GFR ESTIMATED 62; GLUCOSE 135 MG/DL (70-105); MAGNESIUM 1.6 MG/DL (1.6-2.4); POTASSIUM 3.3 MMOL/L (3.6-5.0); SODIUM 140 MMOL/L (135-145)
[2022-08-20 11:19] LABS: ALBUMIN 2.7 GM/DL (3.2-4.5); LIPASE 26 U/L (8-78); TOTAL PROTEIN 5.8 GM/DL (6.4-8.2)
--- NOTE | 2022-08-20 11:58 | Diagnostic Imaging Report ---
PROCEDURE: CT head without contrast. TECHNIQUE: Multiple contiguous axial images were obtained through the brain without the use of intravenous contrast. Auto Exposure Controls were utilized during the CT exam to meet ALARA standards for radiation dose reduction. INDICATION: Altered mental status, confusion, weakness COMPARISON: 03/02/2021 FINDINGS: Moderate atrophy. No intracranial hemorrhage. No intracranial mass, mass effect, midline shift, obstructive hydrocephalus, or suspicious extra-axial fluid collection. No definite CT evidence of an acute ischemic infarction. Mild background chronic small vessel white matter ischemic disease. The orbits are unremarkable. Background vascular calcifications. The paranasal sinuses are clear. The calvarium and extra calvarial soft tissues are unremarkable. IMPRESSION: Similar-appearing examination without acute intracranial abnormality. Moderate atrophy with mild background chronic small white matter ischemic disease. Dictated by: Dictated on workstation # [id number]
--- NOTE | 2022-08-20 12:27 | Diagnostic Imaging Report ---
HISTORY: Altered mental status TECHNIQUE: Frontal view the chest COMPARISON: 08/16/2022 FINDINGS: Lung volumes are normal. There is airspace opacity in the left lung base. There is no pleural effusion or pneumothorax. The cardiac silhouette is normal in size. IMPRESSION: 1. Left basilar airspace opacity, may represent atelectasis or infection. Dictated by: Dictated on workstation # [id number]
--- NOTE | 2022-08-20 12:43 | Diagnostic Imaging Report ---
PROCEDURE: CT abdomen and pelvis with contrast. TECHNIQUE: Multiple contiguous axial images were obtained through the abdomen and pelvis after administration of intravenous contrast. Auto Exposure Controls were utilized during the CT exam to meet ALARA standards for radiation dose reduction. All CT scans use one or more of the following dose optimizing techniques: automated exposure control, MA and/or KvP adjustment based on patient size and exam type or iterative reconstruction. INDICATION: Upper left abdominal pain. COMPARISON: There is no previous study for comparison. FINDINGS: There is mild left basilar atelectasis which could be on the basis of splinting. No focal hepatic abnormality is identified. There are multiple stones present within the lumen of the gallbladder which extend into the region of the gallbladder neck and cystic duct as well. There is no significant intra or extrahepatic biliary ductal dilatation. There is mild pericholecystic fluid. In addition, there is fluid along the greater curvature of the stomach and in the left upper quadrant adjacent to the spleen. Tortuous vessels are present within the splenic hilum which may represent portal systemic venous shunt. Mild fluid is seen along the left paracolic gutter. No definite focal pancreatic or adrenal gland abnormality is identified. There is a dominant cyst in the upper pole of the right kidney. The kidneys are otherwise unremarkable. There is mild mural thickening involving the small bowel loops in the left abdomen as well as in the sigmoid segment of the colon. The unopacified bladder is unremarkable. There is artifact from the right hip prosthesis. IMPRESSION: Numerous gallstones in the gallbladder lumen and cystic duct. Early cholecystitis is not excluded. A hepatobiliary scan may be useful for assessing patency of the cystic duct. There is evidence of portal venous hypertension and portosystemic venous collaterals with perisplenic and perigastric fluid in the left upper quadrant. A component of gastroenteritis or possible peptic ulcer disease cannot be excluded. No organized abscess is identified and there is no pneumoperitoneum appreciated. Dictated by: Dictated on workstation # [id number]
[2022-08-20] MEDS ORDERED: DOXY100T2 PO (15:14)
[2022-08-20 15:27] VITALS: BP 124/65
== END 2022-08-20 16:15 | disposition home or self-care (01) ==
LOC: EDUNIT# 10:35 → ER FS 10:35
DX: R53.1 Weakness (principal); F03.90 Unspecified dementia, unspecified severity, without behavioral disturbance, psychotic disturbance, mood disturbance, and anxiety; R53.81 Other malaise; K80.20 Calculus of gallbladder without cholecystitis without obstruction; I49.3 Ventricular premature depolarization
CPT/HCPCS: 36415; 70450; 71045; 74177; 80053; 83605; 83690; 83735; 83880; 84484; 85025; 85610; 85730; 86141; 93005; 93041; Q9967

== ENCOUNTER 2022-09-15 01:09 | Emergency (ER) | payer MEDICARE ==
[~2022-09-15] VITALS: Ht 177.8 cm; Wt 81.0 kg
[~2022-09-15 01:09] MED LIST changes: +DOXY100T2 PO
[2022-09-15] MEDS ORDERED: FUROSEMIDE 40 MG/4 ML INJ (LASIX) IVP STA (01:26)
[2022-09-15] MEDS ORDERED: RT-ALBUTEROL/IPRATROPIUM 3 ML (DUONEB) VIAL INH ONE (01:30)
[2022-09-15 01:38] LABS: BASOPHILS # (AUTO) 0.1 10^3/uL (0.0-0.1); BASOPHILS % (AUTO) 0 % (0-10); EOSINOPHILS # (AUTO) 0.5 10^3/uL (0.0-0.3); EOSINOPHILS % (AUTO) 3 % (0-10); HEMATOCRIT 36 % (40-54); HEMOGLOBIN 11.6 g/dL (13.3-17.7); LYMPHOCYTES # (AUTO) 2.8 10^3/uL (1.0-4.0); LYMPHOCYTES % (AUTO) 15 % (12-44); MEAN CORPUSCULAR HEMOGLOBIN 31 pg (25-34); MEAN CORPUSCULAR HGB CONC 32 g/dL (32-36); MEAN CORPUSCULAR VOLUME 98 fL (80-99); MEAN PLATELET VOLUME 9.5 fL (9.0-12.2); MONOCYTES # (AUTO) 0.7 10^3/uL (0.0-1.0); MONOCYTES % (AUTO) 4 % (0-12); NEUTROPHILS # (AUTO) 14.5 10^3/uL (1.8-7.8); NEUTROPHILS % (AUTO) 77 % (42-75); PLATELET COUNT 362 10^3/uL (130-400); WHITE BLOOD COUNT 18.7 10^3/uL (4.3-11.0)
[2022-09-15 01:43] LABS: ABG BASE EXCESS 1.9 MMOL/L (-2.5-2.5); ABG OXYGEN SATURATION 91 % (94-100); ABG PCO2 41 MMHG (35-45); ABG PH 7.42 (7.37-7.43); ABG PO2 60 MMHG (79-93); ABG TCO2 27.9 MMOL/L (21.0-31.0)
[2022-09-15 01:44] LABS: ALLENS TEST OK; INSPIRED O2 100%; VENTILATOR YES
[2022-09-15 01:45] LABS: PATIENT TEMP 37.3
[2022-09-15 01:57] LABS: BILIRUBIN,URINE NEGATIVE (NEGATIVE); CLARITY,URINE CLEAR; COLOR,URINE YELLOW; GLUCOSE, URINE (UA) NEGATIVE (NEGATIVE); KETONES,URINE NEGATIVE (NEGATIVE); LEUKOCYTE ESTERASE ,URINE NEGATIVE (NEGATIVE); NITRITE,URINE NEGATIVE (NEGATIVE); PROTEIN,URINE NEGATIVE (NEGATIVE)
[2022-09-15 02:13] LABS: BACTERIA,URINE NEGATIVE /HPF; CALCIUM OXALATE CRYSTALS,UR FEW /LPF; SQUAMOUS EPITHELIAL CELL,UR RARE /HPF; WBC,URINE RARE /HPF
[2022-09-15 02:18] LABS: BUN/CREATININE RATIO 13; CARBON DIOXIDE 25 MMOL/L (21-32); CHLORIDE 109 MMOL/L (98-107); CREATININE SERUM 1.25 MG/DL (0.60-1.30); GFR ESTIMATED 57; GLUCOSE 195 MG/DL (70-105); POTASSIUM 3.9 MMOL/L (3.6-5.0); SODIUM 146 MMOL/L (135-145)
[2022-09-15 02:19] LABS: ALANINE AMINOTRANSFERASE 15 U/L (0-55); ALBUMIN 2.9 GM/DL (3.2-4.5); ALKALINE PHOSPHATASE 86 U/L (40-136); BILIRUBIN,TOTAL 0.4 MG/DL (0.1-1.0); CALCIUM 9.1 MG/DL (8.5-10.1); MAGNESIUM 1.8 MG/DL (1.6-2.4); TOTAL PROTEIN 6.6 GM/DL (6.4-8.2)
[2022-09-15 02:21] LABS: EOSINOPHILS % (MANUAL) 1 %; LYMPHOCYTES % (MANUAL) 12 %; MONOCYTES % (MANUAL) 4 %; NEUTROPHILS % (MANUAL) 78 %
[2022-09-15 02:22] LABS: MYELOCYTES % 1 %; PLATELET ESTIMATE NORMAL; RBC MORPH NORMAL; REACTIVE LYMPHOCYTES 4 %
[2022-09-15] MEDS ORDERED: CEFEPIME INJECTION 1,000 MG in NS (IVPB) 50 ML IV STA (02:29)
[2022-09-15] MEDS ORDERED: VANCOMYCIN INJECTION 1,000 MG in NS (IVPB) 250 ML IV STA (02:29)
--- NOTE | 2022-09-15 02:32 | ED Dyspnea ---
General Chief Complaint: Respiratory Problems Stated Complaint: HYPOXIA Source of Information: Patient, EMS, Senior Living Records, Old Records (Discharge summary from August 18, [address] Anderson from [facility] and Discharge summary from [facility] discharged on September 10, [address] Taylor) History of Present Illness Date Seen by Provider: Sep 15, 2022 Time Seen by Provider: 01:09 Initial Comments 82-year-old male presenting from [facility] by EMS. Patient had reportedly been having some increased shortness of breath and gurgling respirations over the last few hours for the alf. They were unable to get his oxygen saturation up above 80 to 84% so EMS was called. EMS had placed him on CPAP and the still were only able to have an oxygen saturation of around 84 to 85% but felt like his fingers were cold. On arrival to the emergency department he was placed on BiPAP and 100% FiO2 and his oxygen level did come up to 100%. An ABG was obtained while initiating BiPAP. He has advanced severe dementia and history of recurrent pneumonia and CHF. He had just been discharged from [facility] on September 10 for pneumonia and CHF. He is still taking levofloxacin for an antibiotic for pneumonia through September 18. He had a slight increase in his temperature did not 99.2 here in the emergency department. Per family and NH he was having therapy at the [place] but they were also considering placing him on Hospice care as he was having what was felt to be end stage Dementia and worsening health. His son, Rafy, is the DPOA as both parents have advanced dementia. His son reports the patient is a full code still. Timing/Duration: 4-6 Hours Severity: Severe Activities at Onset: Rest Prior Episodes/Possible Cause: Frequent Episodes (Recently been in and out of hospital in [place] and in [place] for respiratory difficulty and weakness with electrolyte imbalances) Modifying Factors: Improves With Oxygen (BiPap with Oxygen was helping his breathing and oxygenation) Associated Symptoms: Cough, Edema, Fever, Other (rales and crackles on auscultation of lungs) Allergies and Home Medications Allergies Coded Allergies: Dfxbcts-RWO-EzZ Reductase Inhibitor (Verified Allergy, Unknown, 08/20/22) atorvastatin (Verified Allergy, Unknown, 08/20/22) clopidogrel (Verified Allergy, Unknown, 08/20/22) erythromycin base (Verified Allergy, Unknown, 08/20/22) meclizine (Verified Allergy, Unknown, 08/20/22) Patient Home Medication List Home Medication List Reviewed: Yes Donepezil HCl (Donepezil HCl) 10 Mg Tablet, 10 MG PO HS, (Reported) Entered as Reported by: JACOBO MCDONALD on 08/31/21 2243 Doxycycline Hyclate (Doxycycline Hyclate) 100 Mg Tablet, 100 MG PO BID Prescribed by: AMPARO DOWNS on 08/20/22 1514 Ezetimibe (Ezetimibe) 10 Mg Tablet, 10 MG PO ONCE, (Reported) Entered as Reported by: RAZIA MCINTOSH on 03/02/21 170 Furosemide (Lasix) 20 Mg Tablet, 20 MG PO DAILY, (Reported) Entered as Reported by: JULIANA MENDOZA on 08/17/22 0531 Gemfibrozil (Gemfibrozil) 600 Mg Tablet, 600 MG PO BID, (Reported) Entered as Reported by: RAZIA MCINTOSH on 03/02/21 171 Glucosamine Sulfate 2Kcl (Glucosamine) 1,000 Mg Tablet, 1,000 MG PO DAILY, (Reported) Entered as Reported by: RAZIA MCINTOSH on 03/02/21 171 Metformin HCl (Metformin HCl) 500 Mg Tablet, 500 MG PO BID, (Reported) Entered as Reported by: RAZIA MCINTOSH on 03/02/21 171 Mv-Mn/FA/Vit K/Lycop/Lut/Zeaxa (Ocuvite Eye + Multi Tablet) 1 Each Tablet, 1 EACH PO DAILY, (Reported) Entered as Reported by: RADHA SHAH on 03/04/21 0851 Potassium Chloride (Potassium Chloride) 10 Meq Tab.er.prt, 10 MEQ PO BID Prescribed by: JULIAN ANDERSON on 08/18/22 1016 Tamsulosin HCl (Flomax) 0.4 Mg Cap, 0.4 MG PO HS, (Reported) Entered as Reported by: RAZIA MCINTOSH on 03/02/211712 Vit A/Vit C/Vit E/Zinc/Copper (Preservision Areds Tablet) 1 Each Tablet, 1 EACH PO DAILY, (Reported) Entered as Reported by: RAZIA MCINTOSH on 03/02/21 171 [Prevagen] , 10 MG PO DAILY, (Reported) Entered as Reported by: RAZIA MCINTOSH on 03/02/21 1713 Review of Systems Review of Systems Constitutional: chills, fever, malaise EENTM: no symptoms reported Respiratory: cough, short of breath; No stridor Cardiovascular: edema Gastrointestinal: No nausea, No vomiting Genitourinary: decreased output Musculoskeletal: no symptoms reported Skin: no symptoms reported Psychiatric/Neurological: See HPI Past Qfhnqrw-Hlvpmf-Hmxcds Hx Patient Social History Tobacco Use?: No Use of E-Cig and/or Vaping dev: No Substance use?: No Alcohol Use?: No Immunizations Up To Date First/Initial COVID19 Vaccinat: May 2020 Second COVID19 Vaccination Sabino: June 2020 Third COVID19 Vaccination Date: February 2021: August 2021 Past Medical History Surgery/Hospitalization HX: HYPOKALEMIA, PNA, CHF, AKF, T2DM, CKD, HYPERLIPIDEMIA, ALZHEIMERS, ANXIETY, MACULAR DEGENERATION, COPD, MUSCLE WEAKNESS, DYSPHAGIA, ANEMIA, ENCEPHALOPATHY, BPH High Cholesterol, Hypertension Dementia Nursing Suicide Risk Notes: UNABLE TO SCREEN - PT ON BIPAP AND HAS DEMENTIA Physical Exam Vital Signs Vital Signs - First Documented 09/15/22 01:09 Temp 37.3 Pulse 111 Resp 26 B/P (MAP) 135/58 (83) Pulse Ox 92 O2 Delivery NIV Bilevel FiO2 100 Capillary Refill : Height, Weight, BMI Height: '" Weight: lbs. oz. kg; 25.00 BMI Method: General Appearance: Chronically ill, Moderate Distress (increased work of breathing) HEENT: Moist Mucous Membranes Respiratory: Chest Non Tender, Accessory Muscle Use, Crackles, Decreased Breath Sounds, Rales, Respiratory Distress Cardiovascular: Regular Rate, Rhythm; No No Edema (2 + pitting edema to BLE); Normal Peripheral Pulses, Tachycardia Gastrointestinal: Normal Bowel Sounds, No Pulsatile Mass, Non Tender, Soft Rectal: Deferred Extremity: Normal Capillary Refill, Pedal Edema (2+ pitting edema to BLE) Neurologic/Psychiatric: Alert; No Oriented x3 Skin: Warm/Dry, Pallor Focused Exam Lactate Level 09/15/22 01:21: Lactic Acid Level 2.33*H 09/15/22 03:35: Lactic Acid Level 3.85*H Lactic Acid Level Laboratory Tests Test 09/15/22 01:21 09/15/22 03:35 Lactic Acid Level 2.33 MMOL/L (0.50-2.00) *H 3.85 MMOL/L (0.50-2.00) *H Progress/Results/Core Measures Results/Orders Lab Results Laboratory Tests Test 09/15/22 01:21 09/15/22 01:29 09/15/22 03:35 Range/Units White Blood Count 18.7 H 4.3-11.0 10^3/uL Red Blood Count 3.73 L 4.30-5.52 10^6/uL Hemoglobin 11.6 L 13.3-17.7 g/dL Hematocrit 36 L 40-54 % Mean Corpuscular Volume 98 80-99 fL Mean Corpuscular Hemoglobin 31 25-34 pg Mean Corpuscular Hemoglobin Concent 32 32-36 g/dL Red Cell Distribution Width 14.6 H 10.0-14.5 % Platelet Count 362 130-400 10^3/uL Mean Platelet Volume 9.5 9.0-12.2 fL Immature Granulocyte % (Auto) 1 % Neutrophils (%) (Auto) 77 H 42-75 % Lymphocytes (%) (Auto) 15 12-44 % Monocytes (%) (Auto) 4 0-12 % Eosinophils (%) (Auto) 3 0-10 % Basophils (%) (Auto) 0 0-10 % Neutrophils # (Auto) 14.5 H 1.8-7.8 10^3/uL Lymphocytes # (Auto) 2.8 1.0-4.0 10^3/uL Monocytes # (Auto) 0.7 0.0-1.0 10^3/uL Eosinophils # (Auto) 0.5 H 0.0-0.3 10^3/uL Basophils # (Auto) 0.1 0.0-0.1 10^3/uL Immature Granulocyte # (Auto) 0.2 H 0.0-0.1 10^3/uL Neutrophils % (Manual) 78 % Lymphocytes % (Manual) 12 % Monocytes % (Manual) 4 % Eosinophils % (Manual) 1 % Myelocytes % 1 % Reactive Lymphocytes 4 % Platelet Estimate NORMAL Blood Morphology Comment NORMAL Blood Gas Puncture Site LT.RADIAL Blood Gas Patient Temperature 37.3 Arterial Blood pH 7.42 7.37-7.43 Arterial Blood Partial Pressure CO2 41 35-45 MMHG Arterial Blood Partial Pressure O2 60 L 79-93 MMHG Arterial Blood HCO3 27 23-27 MMOL/L Arterial Blood Total CO2 27.9 21.0-31.0 MMOL/L Arterial Blood Oxygen Saturation 91 L 94-100 % Arterial Blood Base Excess 1.9 -2.5-2.5 MMOL/L Jason Test OK Blood Gas Ventilator Setting YES Blood Gas Inspired Oxygen 100% Sodium Level 146 H 135-145 MMOL/L Potassium Level 3.9 3.6-5.0 MMOL/L Chloride Level 109 H 98-107 MMOL/L Carbon Dioxide Level 25 21-32 MMOL/L Anion Gap 12 5-14 MMOL/L Blood Urea Nitrogen 16 7-18 MG/DL Creatinine 1.25 0.60-1.30 MG/DL Estimat Glomerular Filtration Rate 57 BUN/Creatinine Ratio 13 Glucose Level 195 H 70-105 MG/DL Lactic Acid Level 2.33 *H 3.85 *H 0.50-2.00 MMOL/L Calcium Level 9.1 8.5-10.1 MG/DL Corrected Calcium 10.0 8.5-10.1 MG/DL Magnesium Level 1.8 1.6-2.4 MG/DL Total Bilirubin 0.4 0.1-1.0 MG/DL Aspartate Amino Transf (AST/SGOT) 20 5-34 U/L Alanine Aminotransferase (ALT/SGPT) 15 0-55 U/L Alkaline Phosphatase 86 40-136 U/L Troponin I < 0.30 <0.30 NG/ML C-Reactive Protein 6.57 H <0.50 MG/DL Pro-B-Type Natriuretic Peptide 277.0 <450.0 PG/ML Total Protein 6.6 6.4-8.2 GM/DL Albumin 2.9 L 3.2-4.5 GM/DL Urine Color YELLOW Urine Clarity CLEAR Urine pH 6.0 5-9 Urine Specific Nell[place] 1.025 H 1.016-1.022 Urine Protein NEGATIVE NEGATIVE Urine Glucose (UA) NEGATIVE NEGATIVE Urine Ketones NEGATIVE NEGATIVE Urine Nitrite NEGATIVE NEGATIVE Urine Bilirubin NEGATIVE NEGATIVE Urine Urobilinogen 0.2 < = 1.0 MG/DL Urine Leukocyte Esterase NEGATIVE NEGATIVE Urine RBC (Auto) NEGATIVE NEGATIVE Urine RBC NONE /HPF Urine WBC RARE /HPF Urine Squamous Epithelial Cells RARE /HPF Urine Crystals PRESENT H /LPF Urine Calcium Oxalate Crystals FEW H /LPF Urine Bacteria NEGATIVE /HPF Urine Casts PRESENT /LPF Urine Hyaline Casts 5-10 H /LPF Urine Mucus MODERATE H /LPF Urine Culture Indicated NO My Orders Orders - ISSA PEREZ MD Cbc With Automated Diff (09/15/22 01:20) Comprehensive Metabolic Panel (09/15/22 01:20) Blood Culture (09/15/22 01:20) Chest 1 View Ap/Pa Only (09/15/22 01:20) Albuterol/Ipra Inhalation Soln (Duoneb I (09/15/22 01:30) Magnesium (09/15/22 01:20) Ekg Tracing (09/15/22 01:20) O2 (09/15/22 01:20) Ed Iv/Invasive Line Start (09/15/22 01:20) Monitor-Rhythm Ecg Trace Only (09/15/22 01:20) Crp Fs (09/15/22 01:20) Lactic Acid Analyzer (09/15/22 01:20) Svn Small Volume Nebulizer (09/15/22 01:20) Don Cath (09/15/22 01:20) Arterial Blood Gas (09/15/22 01:20) Troponin I Fs (09/15/22 01:24) Probnp Fs (09/15/22 01:24) Ua Culture If Indicated (09/15/22 01:24) Furosemide Injection (Lasix Injection) (09/15/22 01:26) Manual Differential (09/15/22 01:21) Cefepime Injection (Maxipime Injection) (09/15/22 02:29) Vancomycin Injection (Vancomycin Injecti (09/15/22 02:29) Acetaminophen Suppository (Tylenol Suppo (09/15/22 03:55) Ns Iv 1000 Ml (Sodium Chloride 0.9%) (09/15/22 04:13) Medications Given in ED Current Medications Medications Dose Ordered Sig/Candelario Route Start Time Stop Time Status Last Admin Dose Admin Albuterol/ Ipratropium 3 ml ONCE ONCE INH 09/15/22 01:30 09/15/22 01:31 DC 09/15/22 01:41 3 ML Vital Signs/I&O 09/15/22 09/15/22 09/15/22 09/15/22 01:09 01:09 01:41 03:52 Temp 37.3 38.7 Pulse 111 Resp 26 B/P (MAP) 135/58 (83) Pulse Ox 92 92 99 O2 Delivery NIV Bilevel NIV Bilevel NIV Bilevel FiO2 100 100 09/15/22 04:15 Temp 38.7 Admisison Planning May Need Admission (Planning): 01:09 Progress Progress Note #1: Progress Note Potential diagnosis of pneumonia, CHF, pleural effusion, myocardial infarction, electrolyte imbalance, renal failure, hepatic failure, sepsis. Obtain ABG to check his oxygenation. Send labs for complete blood count, comprehensive metabolic profile, coagulation factors, blood cultures, lactic acid, troponin, proBNP, magnesium, urinalysis. Place Don catheter for accurate input and output measuring. Administer Lasix 80 mg IV x1 for diuresis based on his peripheral edema and having Rales and crackles on pulmonary exam. Electrocardiogram to evaluate his heart rate and rhythm. Placed on cardiac lunchroom monitor and initially his heart rate was sinus tachycardia 121. 1 view chest x-ray to evaluate for worsening pneumonia, pleural effusion, pneumothorax, hemothorax. Administer DuoNeb breathing treatment along with BiPAP to help with his breathing. Contact family to help determine if they would want him admitted back to the [facility] where he just left on Thursday or to try and get him down to [place] where he was admitted in early Aug, 2022. Progress Note #2: Time: 01:44 Progress Note On the BiPAP with settings of 10/5 and FiO2 100% he did have his O2 saturation come up to 100%. It seemed like he was breathing easier. A Don catheter was placed to help monitor his urine output and he was given a dose of Lasix 80 mg IV x1 to try and help with the crackles and rails in his lung bases and his increased work of breathing. 0217 Lab called with Lactic Acid of 2.33. This may be more from his recent hypoxia and increased work of breathing. He could have some mild sepsis as well since he does have elevated white blood cell count and has been being treated with antibiotics. There may also be some mild dehydration as patient has advanced dementia and is not eating and drinking normally. Will order cefepime 1 g IV as well as vancomycin 1 g IV in light of his increased lactic acid and concern for pneumonia on the chest x-ray. 0225 call placed to [facility] to see if they had capacity and capability of taking the patient. I spoke with the nursing customer complaint service supervisor, ARLEN Price. She said that she would have to call the ICU and the floor to find out if they had bed available and staffing. She would also try and find out who the hospitalist was and call me back. [phone] Dee RN from the [facility] called back stating that they did have ICU bed available for the patient. She also reported that Dr. Jimenez was the on-call physician for the hospitalist service and gave me a number to contact him. d/w Dr. Jimenez, hospitalist care consultant for [facility]. I discussed with him the patient's presentation tonight with increased shortness of breath and gurgling type respirations at the alf. He was unable to get O2 saturation above 80 to 84% prior to arriving in the emergency department and being placed on BiPAP. Since being placed on BiPAP he has had O2 sat of 100%. His heart rate and respirations had improved. He had an elevated white blood cell count of 18.7. He had a left shift with. His lactic acid was slightly elevated at 2.3. His chest x-ray did look like there was a left lower lobe pneumonia and some mild pulmonary vascular congestion. Given additional IV antibiotics on top of the Levaquin he has been taking by mouth. Given cefepime 1 g IV and vancomycin 1 g IV here in the emergency department. Also with the 80 mg of IV Lasix he appears to be diuresing well through his Don catheter that was placed here. We will try to wean down his BiPAP to see if he would be able to be titrated off of that. He did accept the patient for transfer and admit to [facility]. [id number] Patient had recheck of his temperature as he seemed to be shaking and shivering. He had increase in his temperature up to 38.7 axillary. Order placed for acetaminophen suppository 650 mg x 1. Unable to give medications by mouth as patient was on the BiPAP. 04 14 lab called with an elevated lactic acid saying that it had increased to 3.85. With his lactic acid going up we will add on a liter of normal saline. Initially had held off on IV fluid hydration as patient was seeming to have some fluid overload and we were trying to diurese him. Initial ECG Impression Date: Sep 15, 2022 Initial ECG Impression Time: 02:01 Initial ECG Rate: 108 Initial ECG Rhythm: S.Tach Initial ECG Comparisson: Changed (08/20/2022 he had a sinus rhythm in the 90s and tonight is sinus tachycardia.) Comment On my personal interpretation and review his electrocardiogram shows sinus tachycardia with heart rate of 108 bpm. IN interval [address] elevation. QT interval 320 ms with a QTc interval 383 ms. Comparing to August 20, 2022 for his last electrocardiogram he was in a sinus rhythm with a heart rate in the 90s then and tonight he has sinus tachycardia with a heart rate of 108. Diagnostic Imaging Diagonstic Imaging: Xray Plain Films/CT/US/NM/MRI: chest Comments On my personal interpretation and review of his 1 view chest x-ray he appears to have some mild pulmonary vascular congestion and a left lower lobe pneumonia. This appears worse or different than his previous chest x-ray on August 20 Reviewed: Reviewed by Me Critical Care Note Critical Care Total Time (minutes) 60 minutes Progress I spent at least 60 minutes of critical care time with the patient. Time excludes separately billable procedures. Time was spent in obtaining history from medical records, alf, family, ordering test and reviewing results, ordering interventions and reviewing response, discussion with consultants, documentation in the chart. Patient was at risk of cardiopulmonary collapse and compromised with his pneumonia and hypoxia as well as some pulmonary vascular congestion. He required my immediate and direct intervention and management to help stabilize his condition and arrange for transfer to higher level of care. Departure Impression Primary Impression: Pneumonia of left lower lobe due to infectious organism Additional Impressions: Hypoxia Acute exacerbation of CHF (congestive heart failure) Qualified Codes: I50.9 - Heart failure, unspecified Disposition: 02 XFER [facility] Condition: Critical Transfer Transfer Reason: Exceeds level of care (On Bipap and needing ICU admit) Time Spoke to Accepting Phy: 03:00 Transfer Progress Notes d/w Dr. Jimenez, hospitalist care consultant for [facility]. I discussed with him the patient's presentation tonight with increased shortness of breath and gurgling type respirations at the alf. He was unable to get O2 saturation above 80 to 84% prior to arriving in the emergency department and being placed on BiPAP. Since being placed on BiPAP he has had O2 sat of 100%. His heart rate and respirations had improved. He had an elevated white blood cell count of 18.7. He had a left shift with. His lactic acid was slightly elevated at 2.3. His chest x-ray did look like there was a left lower lobe pneumonia and some mild pulmonary vascular congestion. Given additional IV antibiotics on top of the Levaquin he has been taking by mouth. Given cefepime 1 g IV and vancomycin 1 g IV here in the emergency department. Also with the 80 mg of IV Lasix he appears to be diuresing well through his Don catheter that was placed here. We will try to wean down his BiPAP to see if he would be able to be titrated off of that. He did accept the patient for transfer and admit to [facility]. Transfer Facility: [facility] Method of Transfer: EMS Departure-Patient Inst. Referrals: BARRY MANSFIELD MD (PCP/Family) Primary Care Physician ISSA PEREZ MD Sep 15, 2022 02:32
[2022-09-15] MEDS ORDERED: ACETAMINOPHEN 650 MG SUPP (TYLENOL) PR STA (03:55)
[2022-09-15] MEDS ORDERED: NS IV 1000 ML 1,000 ML IV STA (04:13)
[2022-09-15 04:29] VITALS: BP 149/62
--- NOTE | 2022-09-15 06:47 | Diagnostic Imaging Report ---
INDICATION: Hypoxia, shortness of breath. COMPARED with 08/20/2022 FINDINGS: Left lower lobe infiltrate suspect for pneumonia. There is a small left pleural effusion, the right lung clear. IMPRESSION: Findings most suggestive of left lower lobe pneumonia and a small effusion. Dictated by: Dictated on workstation # [id number]
== END 2022-09-15 04:40 | disposition short-term general hospital (02) ==
LOC: EDUNIT# 01:09 → ER FS 01:10
DX: I13.0 Hypertensive heart and chronic kidney disease with heart failure and stage 1 through stage 4 chronic kidney disease, or unspecified chronic kidney disease (principal); I50.9 Heart failure, unspecified; N18.9 Chronic kidney disease, unspecified; E11.22 Type 2 diabetes mellitus with diabetic chronic kidney disease; J18.9 Pneumonia, unspecified organism; R09.02 Hypoxemia; R74.02 Elevation of levels of lactic acid dehydrogenase [LDH]; Z88.1 Allergy status to other antibiotic agents; Z99.89 Dependence on other enabling machines and devices
CPT/HCPCS: 36415; 51702; 71045; 80053; 81000; 82805; 83605; 83735; 83880; 84484; 85007; 85027; 86141; 87040; 93005; 93041; 94640; 99291